=== PATIENT | female | born 1950 | race Caucasian/White ===

== ENCOUNTER → 2016-04-12 | Outpatient (CLI) | payer OTHER ==
[~2016-04-12] MED LIST: ACET-1222; ALBINS PO; ALBU2SYP9 INH; AMOX875T PO; ANT25 PO; ASPCH81X PO; ASPEC81 PO; ATV5 PO; CITA20TA9 PO; CLX20 PO; COEN1CAP28 PO; COEN1CAP7 PO; ESTCR VI; LEVO88TA22 PO; LEVO88TA3 PO; METO25TA3 PO; MULT-506 PO; MULTTAB58 PO; OMEG10007 PO; PRD/1 PO; PRLSR20 PO; PROB1TAB16 PO; RANI150T3 PO; ROSU5TAB PO; TRAZ50TA35 PO; VSC/5 PO; WARF5TAB7 PO; probiotics
[2016-04-12 14:55] VITALS: BP 132/59; PULSE 68; TEMP 36.4; O2SAT 93
--- NOTE | 2016-04-12 15:29 | Radiation Oncology Follow-Up ---
Radiation Oncology Follow-Up Date of Visit Apr 12, 2016. Reason For Visit Annual follow-up Radiation Completion Date APB 08/21/11 Diagnosis (1) MAL KATELYN BREAST UP-OUTER Status: Resolved Onset Date: 05/04/2011 Location: right breast Histology Subtype: lobular Stage: ll (A) Permanent Comment: Abnormal right breast mammogram Status post biopsy revealing lobular carcinoma Status post lumpectomy and axillary sentinel lymph node biopsy [id number] Estrogen receptor positive, progesterone receptor positive, HER-2/barbara negative Status post completion of radiation therapy utilizing accelerated partial breast treatment completed 08/21/2011 Last Edited By: Josette Rangel on Mar 14:28 Interim History She's been doing well over the past year. She denies any changes to her breast. She's noted no masses or tenderness and no change of the axilla. She is up-to-date on mammography. She continues regular follow-up with Dr. Burch. She now sees him twice a year. She had a mammogram 07/08/2015. There is no mammographic evidence of malignancy. One year screening mammogram was recommended. BI-RADS Category 2. She was hospitalized for vertigo in December. She had MRI as well as CAT scan. 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 She has been doing well since. She does have a problem with her vision. She is going to see the bottom hoop driver. She stated that there are plans for her to have carotid Dopplers in the future. Allergies Coded Allergies: Hydrocodone (Verified Allergy, Unknown, other, 12/21/15) hallucinations Levofloxacin (Unverified Allergy, Unknown, RASH, 12/21/15) difficulty with neuropathy Propoxyphene (Verified Allergy, Unknown, UNKNOWN., 12/21/15) Azithromycin (Verified Adverse Reaction, Intermediate, DEAFNESS FOR SEVERAL WEEKS, 12/21/15) Hydromorphone (Verified Adverse Reaction, Intermediate, Hallucinations , 12/21/15) Oxycodone (Verified Adverse Reaction, Mild, other, 12/21/15) hallucinations Uncoded Allergies: [id number] (Allergy, Intermediate, Hallucinations , 08/31/14) Hydromorphone [id number] (Allergy, Intermediate, DEAFNESS FOR SEVERAL WEEKS, 08/31/14) Azithromycin CONTRAST MEDIA (Allergy, Mild, RASH, 01/30/11) [id number] (Allergy, Mild, other, 08/31/14) Oxycodone [id number] (Allergy, Unknown, other, 08/31/14) Hydrocodone [id number] (Allergy, Unknown, UNKNOWN., 08/31/14) Propoxyphene [id number] (Allergy, Unknown, RASH, 08/31/14) Levofloxacin Home Medications Scheduled Albuterol Sulf (Albuterol Sulfate), Unknown Dose PO UD Aspirin Enteric Coated (Ecotrin Or Generic *), 81 MG PO DAILY Citalopram (Celexa *), 20 MG PO DAILY Coenzyme Q10 (Ubidecarenone) (Co Q10), 100 CAP PO BID Fish Oil ([place]-3), 1 CAP PO BID Levothyroxine (Levoxyl), 0.088 MG PO DAILY Metoprolol Succ (Toprol Xl) (Toprol-Xl), 25 MG PO DAILY Multiple Vitamin (Multivitamin), 1 TAB PO DAILY Prednisone (Prednisone), 5 MG PO Q4D Rosuvastatin Calcium (Crestor), 5 MG PO Q2D Trazodone Hcl (Trazodone), 50 MG PO HS Warfarin Sod (Jantoven), 5 MG PO UD [probiotics], 1 TAB DAILY Scheduled PRN Lorazepam (Ativan *), 0.5 MG PO BID PRN for Anxiety/Agitation Meclizine HCl (Meclizine HCl), 12.5 MG PO Q8 PRN for dizziness Miscellaneous Medications Acetaminophen (Acetaminophen Extra Stren) Review of Systems Gastrointestinal: Symptoms: Constipation GI Comments: Constipation is manageable; Oral: Symptoms: No Problems Respiratory: Symptoms: Productive Cough Sputum Character: Clear sputum Urinary: Symptoms: WNL Skin: Symptoms: No Problems Breast: Right Upper Arm Measurement: 33.5 Right Mid Arm Measurement: 24.5 Right Wrist Measurement: 16.3 Left Upper Arm Measurement: 35.0 Left Mid Arm Measurement: 24.8 Left Wrist Measurement: 16.5 Arm Dominence: Right Physical Exam Vital Signs Date Time Temp Pulse Resp B/P Pulse Ox O2 Delivery O2 Flow Rate FiO2 04/12/16 14:55 36.4 68 24 132/59 93 Pain: Patient Pain Scale: 0 - 10 Initial Pain Intensity: 0.0 Fatigue: None General Appearance: no apparent distress Eyes: normal inspection, EOMI ENT: normal ENT inspection, hearing grossly normal Neck: no adenopathy, thyroid normal Respiratory/Chest: lungs clear, no respiratory distress, no accessory muscle use Breast: Breast examination reveals well-healed incisions of the right breast. She does have telangiectasis along the upper outer quadrant incision. There are no masses or tenderness no axillary adenopathy. She has no nipple changes. Using the [place] score cosmesis she has a good outcome. The left breast showed no masses or tenderness and no axillary adenopathy. Cardiovascular: regular rate, rhythm, no gallop, no murmur Extremities: no pedal edema Neurologic/Psychiatric: no motor/sensory deficits, alert, normal mood/affect Skin: warm/dry Lymphatic: no adenopathy Additional Studies BILATERAL DIGITAL SCREENING MAMMOGRAM 3D/2D WITH CAD: 07/08/2015 CLINICAL HISTORY: Asymptomatic Personal History of Breast Cancer. Comparison is made to exams dated: 07/06/2014 mammogram - [facility], 03/23/2008, 06/30/2012 mammogram, 07/02/2013 mammogram, 12/25/2012 mammogram , and 12/19/2011 mammogram - [facility]. FINDINGS: There are scattered areas of fibroglandular density in both breasts. Current study was also evaluated with a Computer Aided Detection (CAD) system. Bilateral CC and MLO 2-D and tomosynthesis views were obtained. No suspicious masses, calcifications, or areas of architectural distortion are noted in either breast. There has been no significant interval change compared to prior exams. There are stable postoperative changes in the right upper outer quadrant from prior lumpectomy. Oval 5 cm mass at the lumpectomy bed is not significantly changed compared to prior exams, with a postoperative seroma seen on prior ultrasounds. Additionally, there are stable postsurgical changes in the left breast at approximately 12:00 including a fat density mass consistent with fat necrosis. Scattered bilateral benign-appearing calcifications are stable compared to prior exams. IMPRESSION: ACR BI-RADS CATEGORY 2: BENIGN There is no mammographic evidence of malignancy. A 1 year screening mammogram is recommended. The patient will receive written notification of the results. Approximately 10% of breast cancers are not detected with mammography. A negative mammographic report should not delay biopsy if a clinically suggestive mass is present. Cathi Wood M.D. /:07/08/2015 15:26:18 Assessment & Plan Plan: She is scheduled for mammography 07/09/2016. Continue regular follow-up with Dr. Burch. She is seeing Dr. Burch every 6 months. A follow-up with our office was not given. She may call if she has any questions or concerns would be happy to see her. Total Time In Follow-Up I spent 20 minutes speaking to the patient performing examination. I spent 10 minutes reviewing information and completing this note. Copy To Hoang Burch M.D.; Alex Rai D.O.
== END | disposition home or self-care (01) ==
LOC: C.ONC 14:33
PROVIDERS: ATTEND Radiology Radiation Oncology
DX: Z08 Encounter for follow-up examination after completed treatment for malignant neoplasm (principal); Z92.3 Personal history of irradiation; Z85.3 Personal history of malignant neoplasm of breast

== ENCOUNTER → 2016-07-09 | Outpatient (CLI) | payer OTHER ==
[~2016-07-09] MED LIST changes: -ESTCR VI; -PRLSR20 PO; -VSC/5 PO
--- NOTE | 2016-07-10 15:28 | MAMMOGRAPHY REPORT ---
BILATERAL DIGITAL SCREENING MAMMOGRAM TOMOSYNTHESIS WITH CAD: 07/09/2016 CLINICAL HISTORY: Asymptomatic. Personal history of breast cancer. TECHNIQUE: Breast tomosynthesis in addition to standard 2D mammography was performed. Current study was also evaluated with a Computer Aided Detection (CAD) system. COMPARISON: Comparison is made to exams dated: 07/08/2015 mammogram, 07/06/2014 mammogram, 07/02/2013 mammogram, 06/30/2012 mammogram, 05/04/2011 localization, and 04/19/2011 mammogram - [facility]. BREAST COMPOSITION: There are scattered areas of fibroglandular density in both breasts. FINDINGS: There is evidence of prior bilateral breast surgery, including expected architectural dist ortion and central oil cyst in the 12:00 to one third of the left breast. There is a stable postsur gical seroma and/or hematoma in the upper outer posterior right breast, with adjacent surgical clips . There are a few benign-appearing micro-calcifications bilaterally. Mild vascular calcification. No new suspicious mass, architectural distortion or cluster of microcalcifications is seen. IMPRESSION: ACR BI-RADS CATEGORY 1: NEGATIVE There is no mammographic evidence of malignancy. A 1 year screening mammogram is recommended. The p atient will receive written notification of the results. Approximately 10% of breast cancers are not detected with mammography. A negative mammographic repor t should not delay biopsy if a clinically suggestive mass is present. Stephany Paredes M.D. ay/:07/09/2016 22:07:24 Attic Fans Mechanic: Sierra Castaneda, [facility] letter sent: Normal 1/2 BI-RADS Code: ACR BI-RADS Category 1: Negative
== END | disposition home or self-care (01) ==
LOC: C.MAMM 14:19
PROVIDERS: ATTEND Surgery
DX: Z12.31 Encounter for screening mammogram for malignant neoplasm of breast (principal); Z85.3 Personal history of malignant neoplasm of breast

== ENCOUNTER → 2016-08-08 | Day surgery (SDC) | payer OTHER ==
[2016-08-02 10:17] VITALS: BMI 31.0
[~2016-08-08] VITALS: Ht 172.7 cm; Wt 92.7 kg
[~2016-08-08] MED LIST changes: -ACET-1222; -ALBINS PO; -ANT25 PO; -ASPEC81 PO; -CLX20 PO; -COEN1CAP28 PO; -LEVO88TA22 PO; +LIDOCAINE HCL 2% 2 ML VIAL (20MG/ML) ONE; -MULTTAB58 PO; -PRD/1 PO; +PROPOFOL IV EMULSION 10 MG/ML 20 ML VIAL IV ONE; -probiotics
[2016-08-08 11:22] VITALS: Ht 172.7 cm; Wt 92.7 kg
--- NOTE | 2016-08-08 11:52 | Endo History and Physical ---
History & Physical Date of Service: August 08, 2016. Chief Complaint: Screening for colon cancer/ dyphagia Referring Physician: Dr. Rai History of Present Illness Dysphagia, CRC screening Past Medical History Atrial Fibrillation, Pulmonary Emboli, Cancer, High Cholesterol, Thyroid Disease , Kidney Disease, Depression Past Surgical History Hx Cardiac Surgery: Yes (AORTIC ANEURYSM REPAIR X 2) Hx Internal Defibrillator: No Hx Pacemaker: No Hx Abdominal Surgery: Yes (APPY) Hx of Implantable Prosthesis: No Hx Post-Op Nausea and Vomiting: No Hx Cancer Surgery: Yes (RT/LEFT PARTIAL MASTECTOMY, BACK EXCISION) Hx Thoracic Surgery: No Hx Orthopedic: No Hx Urinary Tract Surgery: Yes (LAP URETHRAL SUSPENSION) Family History None Social History Smoking Status: Never Smoker Hx Substance Use: No Hx Alcohol Use: No Allergies Coded Allergies: Hydrocodone (Verified Allergy, Unknown, other, 08/02/16) hallucinations Levofloxacin (Verified Allergy, Unknown, RASH, 08/08/16) difficulty with neuropathy Propoxyphene (Verified Allergy, Unknown, UNKNOWN., 08/02/16) Azithromycin (Verified Adverse Reaction, Intermediate, DEAFNESS FOR SEVERAL WEEKS, 08/02/16) Hydromorphone (Verified Adverse Reaction, Intermediate, Hallucinations , ) Oxycodone (Verified Adverse Reaction, Mild, other, 08/02/16) hallucinations Uncoded Allergies: CONTRAST MEDIA (Allergy, Mild, RASH, 01/30/11) Current Medications Reported Home Medications Medications Dose Route/Sig Max Daily Dose Days Date Category Dose Instructions Multivitamin (Multivitamins) Tab 1 Tab PO QAM 08/02/16 Reported Probiotic (Probiotic Product) 1 Tab Tab 2 Tab PO DAILY AT LUNCH 08/02/16 Reported [place]-3 (Fish Oil) 1 Ea Cap 1 Cap PO QAM 08/02/16 Reported Coq10 (Coenzyme Q10 (Ubidecarenone)) 200 Mg Cap 1 Cap PO QAM 08/02/16 Reported Ventolin (Albuterol Sulfate) 2 Mg/5 Ml Syrp 1 Dose INH Q4H PRN 08/02/16 Reported Aspirin Chewable (Aspirin) 81 Mg Chew 81 Mg PO QAM 08/02/16 Reported Toprol Xl (Metoprolol Succinate) 25 Mg Tabcr 25 Mg PO HS 08/02/16 Reported Crestor (Rosuvastatin Calcium) 5 Mg Tab 5 Mg PO Q2D 08/02/16 Reported Levothyroxine Sodium 88 Mcg Tab 1 Tab PO QAM 90 08/02/16 Reported Celexa (Citalopram Hydrobromide) 20 Mg Tab 20 Mg PO HS 08/02/16 Reported Zantac (Ranitidine HCl) 150 Mg Tab 150 Mg PO BID 08/02/16 Reported Trazodone (Trazodone HCl) 50 Mg Tab 50 Mg PO HS 12/21/15 Reported Jantoven (Warfarin Sodium) 5 Mg Tab 5 Mg PO UD 06/30/14 Reported DIRECTED BY COAG CLINIC Ativan * (Lorazepam) 0.5 Mg Tab 0.5 Mg PO BID PRN 01/30/11 Reported Vital Signs Weight (Kilograms): 92.73 Height (Feet): 5 Height (Inches): 8 Date Time Temp Pulse Resp B/P Pulse Ox O2 Delivery O2 Flow Rate FiO2 08/08/16 11:27 36.4 75 20 150/70 97 Room Air Physical Exam General Appearance: no apparent distress Respiratory/Chest: Auscultation: breath sounds normal Cardiovascular: Heart Auscultation: RRR Abdomen: Inspection & Palpation: soft Assessment and Plan Screening, dysphagia - EGD, cscopy
--- NOTE | 2016-08-08 12:41 | GI REPORT ---
Procedure Date: 08/08/2016 11:55 AM Procedure: Upper GI endoscopy Indications: Dysphagia Medicines: See the Anesthesia note for documentation of the administered medications Complications: No immediate complications. Estimated Blood Loss: Estimated blood loss: none. Procedure: Pre-Anesthesia Assessment: - ASA Grade Assessment: III - A patient with severe systemic disease. After obtaining informed consent, the endoscope was passed under direct vision. Throughout the procedure, the patient's blood pressure, pulse, and oxygen saturations were monitored continuously. The scope was introduced through the mouth, and advanced to the second part of duodenum. The upper GI endoscopy was accomplished without difficulty. The patient tolerated the procedure well. Findings: The Z-line was found 38 cm from the incisors. A faint Schatzki ring (acquired) was found at the gastroesophageal junction. A guidewire was placed and the scope was withdrawn. Dilation was performed with a Savary dilator with no resistance at 18 mm. The ring was fractured wtih a forceps. There was a small hiatal hernia. There were stripes of erythema in the antrum. The stomach was otherwise normal. The duodenum was normal. Biopsies were taken with a cold forceps in the entire esophagus, in the entire examined stomach and in the entire duodenum for histology. Impression: - Antral gastritis. - Faint Schatzki ring. Dilated. - Biopsies were taken with a cold forceps for histology in the entire esophagus, in the entire examined stomach and in the entire duodenum. Recommendation: - Await pathology results. Discharge pt home. FOllow up with referring. Marycarmen Mireles M.D. Marycarmen Mireles MD 08/08/2016 12:41:55 PM This report has been signed electronically. Note Initiated On: 08/08/2016 11:55 AM I attest to the content of the Intraoperative Record and orders documented therein, exceptions below
--- NOTE | 2016-08-08 12:43 | GI REPORT ---
Procedure Date: 08/08/2016 11:31 AM Procedure: Colonoscopy Indications: Screening for colorectal malignant neoplasm Medicines: See the Anesthesia note for documentation of the administered medications Complications: No immediate complications. Estimated Blood Loss: Estimated blood loss: none. Procedure: Pre-Anesthesia Assessment: - ASA Grade Assessment: III - A patient with severe systemic disease. After I obtained informed consent, the scope was passed under direct vision. Throughout the procedure, the patient's blood pressure, pulse, and oxygen saturations were monitored continuously. The scope was introduced through the anus and advanced to the terminal ileum. The colonoscopy was performed without difficulty. The patient tolerated the procedure well. The quality of the bowel preparation was good. Findings: The perianal and digital rectal examinations were normal. Multiple small and large-mouthed diverticula were found in the sigmoid colon and in the descending colon. A 3 mm polyp was found in the transverse colon. The polyp was sessile. The polyp was removed with a cold biopsy forceps. Resection and retrieval were complete. A single medium-sized angiodysplastic lesion without bleeding was found in the cecum. Hemorrhoids seen on retroflexion. The exam was otherwise without abnormality. Impression: - Diverticulosis in the sigmoid colon and in the descending colon. - One 3 mm polyp in the transverse colon, removed with a cold biopsy forceps. Resected and retrieved. - A single non-bleeding colonic angiodysplastic lesion. - Hemorrhoids. Recommendation: - Repeat exam in 5 years, pending review of pathology results. - Discharge patient to home. Marycarmen Mireles M.D. Marycarmen Mireles MD 08/08/2016 12:43:55 PM This report has been signed electronically. Note Initiated On: 08/08/2016 11:31 AM I attest to the content of the Intraoperative Record and orders documented therein, exceptions below
--- NOTE | 2016-08-08 12:44 | Discharge Instructions ---
Endoscopy Patient Instructions Date / Procedure(s) Performed August 08, 2016. Colonoscopy, EGD Allergy Information Coded Allergies: Hydrocodone (Verified Allergy, Unknown, other, 08/02/16) hallucinations Levofloxacin (Verified Allergy, Unknown, RASH, 08/08/16) difficulty with neuropathy Propoxyphene (Verified Allergy, Unknown, UNKNOWN., 08/02/16) Azithromycin (Verified Adverse Reaction, Intermediate, DEAFNESS FOR SEVERAL WEEKS, 08/02/16) Hydromorphone (Verified Adverse Reaction, Intermediate, Hallucinations , ) Oxycodone (Verified Adverse Reaction, Mild, other, 08/02/16) hallucinations Uncoded Allergies: CONTRAST MEDIA (Allergy, Mild, RASH, 01/30/11) Discharge Date / Findings August 08, 2016. Ring, diverticulosis, hemorrhoids, diminutive polyp Medication Instructions Stopped Medication(s): Warfarin since 08/04/16 Restart Stopped Medication(s): Resume coumadin today Provider Instructions Activity Restrictions - No exercising or heavy lifting for 24 hours. - Do not drink alcohol the day of the procedure. - Do not drive a car or operate machinery until the day after the procedure. - Do not make any important decisions or sign important papers in 24 hours after the procedure. Following Day: - Return to full activity which may include returning to work/school. Diet Start your diet with liquids and light foods (jello, soup, juice, toast). Then eat your usual diet if not nauseated. Treatment For Common After Affects For mild abdominal pain, bloating, or excessive gas: - Rest - Eat lightly - Lie on right side Follow-Up Information Follow-up with Dr. Rai as scheduled Anesthesia Information What You Should Know You have had a procedure that required some medicine to reduce anxiety and discomfort. This treatment is called moderate sedation. After receiving the treatment, you may be sleepy, but you will be able to breathe on your own. The effects of the treatment may last for several hours. Follow these instructions along with Activity/Diet recommendations noted above: * Do NOT do anything where dizziness or clumsiness would be dangerous. * Rest quietly at home today, then you can be up and about tomorrow. * Have a responsible person stay with you the rest of today. * You may have had an I.V. today. If so, you may take the dressing off later today. Recommendations Call your doctor if: * Trouble breathing * Continuous vomiting for more than 24 hours * Temperature above 101 degrees * Severe abdominal pain or bloating * Pain not relieved by pain medicine ordered * There is increased drainage or redness from any incision * A large amount of rectal bleeding greater than 2-3 tablespoons. (If you had a polyp/s removed or have hemorrhoids, a small amount of blood - from the rectum is to be expected.) * You have any unanswered questions or concerns. IN THE EVENT OF A SERIOUS EMERGENCY, GO TO THE NEAREST EMERGENCY ROOM Your discharge instructions were prepared by provider Marycarmen Rao. Patient Instructions Signature Page Debbie Jackson Patient (or Guardian) Signature/Date: I have read and understand the instructions given to me by my caregivers. Caregiver/RN/Doctor Signature/Date: The above-named patient and/or guardian has received patient instructions on this date. + Original Patient Signature Page (only) stays with chart. Please make copy for patient.
--- NOTE | 2016-08-08 12:52 | Anesthesiology Progress Note ---
Anesthesia Post Op Note Date & Time August 08, 2016 at 12:52 Vital Signs Pain Intensity: 0 Vital Signs Past 12 Hours Date Time Temp Pulse Resp B/P Pulse Ox O2 Delivery O2 Flow Rate FiO2 08/08/16 12:45 36.6 67 20 103/50 97 Nasal Cannula 3 08/08/16 11:27 36.4 75 20 150/70 97 Room Air Notes Mental Status: alert / awake / arousable, participated in evaluation Pt Amnestic to Procedure: Yes Nausea / Vomiting: adequately controlled Pain: adequately controlled Airway Patency, RR, SpO2: stable & adequate BP & HR: stable & adequate Hydration State: stable & adequate Anesthetic Complications: no major complications apparent
[2016-08-08 13:19] VITALS: BP 128/56; PULSE 66; O2SAT 98
== END | disposition home or self-care (01) ==
LOC: C.GI 10:54
PROVIDERS: ATTEND Internal Medicine Gastroenterology
DX: Z12.11 Encounter for screening for malignant neoplasm of colon (principal); R13.10 Dysphagia, unspecified; K22.2 Esophageal obstruction; K44.9 Diaphragmatic hernia without obstruction or gangrene; E78.00 Pure hypercholesterolemia, unspecified; K29.60 Other gastritis without bleeding; D12.3 Benign neoplasm of transverse colon; K64.8 Other hemorrhoids; Z90.13 Acquired absence of bilateral breasts and nipples; Z86.711 Personal history of pulmonary embolism; Z79.82 Long term (current) use of aspirin; Z79.01 Long term (current) use of anticoagulants

== ENCOUNTER → 2017-07-10 | Outpatient (CLI) | payer OTHER ==
[~2017-07-10] MED LIST changes: -AMOX875T PO; -LIDOCAINE HCL 2% 2 ML VIAL (20MG/ML) ONE; -METO25TA3 PO; +METO25TA4 PO; -PROPOFOL IV EMULSION 10 MG/ML 20 ML VIAL IV ONE
--- NOTE | 2017-07-11 14:45 | MAMMOGRAPHY REPORT ---
BILATERAL DIGITAL SCREENING MAMMOGRAM TOMOSYNTHESIS WITH CAD: 07/10/2017 CLINICAL HISTORY: Routine screening. Patient has no complaints. TECHNIQUE: Breast tomosynthesis in addition to standard 2D mammography was performed. Current study was also evaluated with a Computer Aided Detection (CAD) system. COMPARISON: Comparison is made to exams dated: 07/09/2016 mammogram, 07/08/2015 mammogram, 07/06/2014 m ammogram, 07/02/2013 mammogram, 12/25/2012 ultrasound, and 12/25/2012 mammogram - [facility]. BREAST COMPOSITION: There are scattered areas of fibroglandular density in both breasts. FINDINGS: No suspicious masses, calcifications, or areas of architectural distortion are noted in ei ther breast. There has been no significant interval change compared to prior exams. There are stable postsurgical changes in the right upper outer quadrant from prior lumpectomy, including surgical cli ps, architectural distortion, and an oval 4.4 cm mass at the lumpectomy bed consistent with a postsur gical seroma. There are stable postsurgical changes in the left 12:00 breast including stable errol ectural distortion and a 15 mm fat density mass at the surgical bed consistent with fat necrosis. Sc attered benign-appearing calcifications are not significantly changed. IMPRESSION: ACR BI-RADS CATEGORY 2: BENIGN There is no mammographic evidence of malignancy. A 1 year screening mammogram is recommended. The pa tient will receive written notification of the results. Approximately 10% of breast cancers are not detected with mammography. A negative mammographic report should not delay biopsy if a clinically suggestive mass is present. Cathi Wood M.D. /:07/10/2017 15:42:17 Resource Analyst: Senia KNOWLES(Christopher)(M), [facility] letter sent: Normal 1/2 BI-RADS Code: ACR BI-RADS Category 2: Benign
== END | disposition home or self-care (01) ==
LOC: C.MAMM 14:51
PROVIDERS: ATTEND Internal Medicine
DX: Z12.31 Encounter for screening mammogram for malignant neoplasm of breast (principal); Z85.3 Personal history of malignant neoplasm of breast

== ENCOUNTER → 2017-08-06 | Outpatient (CLI) | payer OTHER ==
--- NOTE | 2017-08-06 15:53 | DIAGNOSTIC IMAGING REPORT ---
CHEST 2 VIEWS ROUTINE CLINICAL HISTORY: Sarcoidosis. COMPARISON STUDY: Chest radiograph December 21, 2015. FINDINGS: Lung volumes are normal. There is no pneumothorax or pleural effusion. There is no consolidation or evidence of pulmonary edema. The appearance of the endovascular thoracic aortic stent graft is similar to exam of December 21, 2015. Incidental note is made of a right breast/right chest wall surgical clips. IMPRESSION: No acute cardiopulmonary findings. No change in appearance of the chest. Electronically signed by: Kyle Varner M.D. 08/06/2017 3:52 PM Dictated Date/Time: 08/06/2017 3:50 PM
== END | disposition home or self-care (01) ==
LOC: C.RAD1850 15:11
PROVIDERS: ATTEND Physician Assistant
DX: D86.9 Sarcoidosis, unspecified (principal)

== ENCOUNTER 2024-02-05 15:03 | Inpatient (IN) ==
--- NOTE | 2024-02-05 15:41 | Emergency Department Note ---
Impression & Plan Atrial fibrillation with rapid ventricular response, Chest pain ED Provider Note Provider: Yvon Duggan MD CHIEF COMPLAINT: A-fib, chest pain/back pain, lightheaded HISTORY OF PRESENT ILLNESS: Patient is a 73-year-old female history of CVA, paroxysmal A-fib, VTE, and aortic repair presenting here with reporting since yesterday she has had intermittent episodes where her smart watch is indicating she is in A-fib. Not normally in A-fib. Reports discomfort and pressure in her chest with some pain to the prickly left shoulder blade region. Some lightheadedness but no syncope. No trauma. No nausea vomiting or diarrhea. Denies recent cough or cold symptoms. No new leg swelling issues reported. Has been having issues for some months with chronic fatigue reports she has been seeing her doctor. Patient states compliance with home medications. Finally given persistent symptoms came in for evaluation here today. PAST MEDICAL HISTORY: As noted above MEDICATIONS: Reviewed home medications SOCIAL HISTORY: PHYSICAL EXAM: GENERAL: alert and oriented in no acute distress on stretcher Head: normocephalic and atraumatic EYES: No injection, discharge or icterus. NECK: Trachea midline. ENT: Mucous membranes pink and moist. LUNGS: Airway patent. No retractions. Breath sounds clear without tachypnea HEART: Tachycardic regular rate and rhythm. No chest wall tenderness ABDOMEN: Soft and non-tender, without guarding or rebound. SKIN: Acyanotic, warm, dry, without rashes EXTREMITIES: Without swelling, tenderness or deformity NEUROLOGICAL: No focal deficits moves all extremities. No aphasia. No facial droop or slurred speech. Ambulatory. EK bpm atrial fibrillation with rapid ventricular spots. Bit of respiratory artifact but no clear acute ST segment elevation or depression with nonspecific T wave changes. QTc 449. CONTINUOUS CARDIAC MONITORING: was ordered and showed a heart rate of 90s to 130s bpm in A-fib Patient's laboratory studies and imaging reviewed. Differential includes Premature contractions, electrolyte abnormality, cardiac dysrhythmia, thyroid dysfunction, pulmonary embolism, infection, gastrointestinal, aortic dissection, as well as other pathologies. IMPRESSION/MEDICAL DECISION MAKING: Patient well-appearing in no active distress. In rapid A-fib. States compliance with medications but given additional IV metoprolol here initially. Reports chest pressure and pain to left shoulder blade and do question given her RVR if she is experiencing some demand ischemia. Will try to affect some better rate control. Denies cough or cold symptoms or fever. Will double check INR but is on warfarin. Denies any significant GI complaints. No neurological deficits doubt CVA. No severe tearing pain I doubt this represents a failure of her aortic repair. Chest x-ray completed without findings of pneumonia, pneumothorax, or pulmonary edema/effusion. Blood work here without significant anemia leukocytosis. Normal platelet count. INR therapeutic at 2.0. Magnesium normal 2.0. Normal potassium. No significant acute renal dysfunction. Normal lipase and LFTs. Doubt hepatitis or pancreatitis. Normal troponin surprisingly given her complaint. Patient with improvement of pain but heart rate begins to creep up after initial dose of IV metoprolol after about an hour and a half. Discussed with her staying for further cardiac evaluation given her symptoms and ongoing A-fib with RVR. She was agreeable. Hospitalist team contacted. DIAGNOSIS: A-fib RVR, chest pain DISPOSITION: Hospitalist will evaluate Patient was agreeable with this plan. Critical Care I have personally spent 35 minutes of critical care time in the direct management of this patient. This includes bedside care, interpretation of diagnostic studies, and testing, discussion with consultants, patient, and family members, and other required patient management activities. These 35 minutes is in excess of all separately billable procedures. Past Med/Surg History Problem List (Updated 02/05/24 @ 17:45 by Yvon Duggan M.D.) Chest pain (Acute) Atrial fibrillation with rapid ventricular response (Acute) Sarcoidosis (Acute) Stroke DVT (deep venous thrombosis) Pulmonary emboli Dizziness Medical History Aorta aneurysm Benign tumor of kidney DVT (deep venous thrombosis) Pulmonary emboli Sarcoidosis Stroke Surgical History History of bilateral mastectomy History of bladder surgery 2010 History of heart surgery aorta - 2011 History of heart surgery Family History Other Family history non-contributory Social History Smoking Status: Never smoker Do You Dip or Chew Tobacco: No; Hx Alcohol Use: No Hx Substance Use: No Preferred Language: Ukrainian Communication Ability: Effective marital status: Current Living Situation: Spouse current occupational status: retired How many Children do You have: 5 Feels Safe at Home: Yes Allergies Allergies Allergy/AdvReac Type Severity Reaction Status Date / Time Iodinated Contrast Media Allergy Mild Rash Verified 02/05/24 18:44 hydrocodone Allergy Unknown other Verified 02/05/24 18:44 levofloxacin Allergy Unknown RASH Verified 02/05/24 18:44 propoxyphene Allergy Unknown UNKNOWN. Verified 02/05/24 18:44 azithromycin AdvReac Intermediate Deafness Verified 02/05/24 18:44 for several weeks hydromorphone AdvReac Intermediate Hallucinati Verified 02/05/24 18:44 ons oxycodone AdvReac Mild other Verified 02/05/24 18:44 Home Meds Home Medications Medication Instructions Recorded Confirmed Lactobacillus 1 cap PO DAILY 09/08/19 02/05/24 acidophilus-Bifidobac.animalis 31 billion cell capsule citalopram 20 mg tablet 20 mg PO QAM 09/08/19 02/05/24 coenzyme Q10 100 mg capsule 100 mg PO .TAKE DIRECTED. 09/08/19 02/05/24 metoprolol succinate 25 mg 12.5 mg PO QAM 09/08/19 02/05/24 tablet,extended release 24 hr multivitamin (Daily Multi-Vitamin 1 tab PO DAILY 09/08/19 02/05/24 tablet) rosuvastatin 5 mg tablet 5 mg PO Q OTHER DAY 09/08/19 02/05/24 red yeast rice 600 mg tablet 600 mg PO QAM 09/10/19 02/05/24 warfarin 5 mg tablet (Jantoven) 7.5 mg PO DAILY 04/27/20 02/05/24 aspirin 81 mg tablet,delayed 81 mg PO DAILY 02/05/24 02/05/24 release coQ10 (ubiquinol) 200 mg capsule 200 mg PO DAILY 02/05/24 02/05/24 levothyroxine 100 mcg tablet 100 mcg PO DAILYBB 02/05/24 02/05/24 melatonin 10 mg tablet 10 mg PO HS 02/05/24 02/05/24 omega-3 fatty acids 1,250 mg 1,250 mg PO DAILY 02/05/24 02/05/24 capsule pregabalin 25 mg capsule 25 mg PO AMHS 02/05/24 02/05/24 turmeric root extract 500 mg 500 mg PO QAM 02/05/24 02/05/24 capsule Results & Data (ED) Vital Signs Vital Signs - 24 hr 02/05/24 15:13 02/05/24 15:44 02/05/24 15:45 Temperature 36.6 C Temperature Source Temporal Artery Scan Pulse Rate 122 H 121 H 107 H Pulse Rate [Left Finger] Pulse Rhythm [Left Finger] Pulse Strength [Left Finger] Respiratory Rate 20 Respiratory Effort / Characteristics Non-Labored Respiratory Depth Normal Respiratory Pattern Blood Pressure 148/60 H 113/85 Blood Pressure [Left Arm] Blood Pressure Mean 89 Blood Pressure Mean [Left Arm] Pulse Oximetry 94 Oxygen Delivery Method Room Air Sepsis Recent Fever Within 48 Hours No Sepsis New/Unexplained Change in Mental Status N/A Sepsis Action Taken by Nursing No Action Required 02/05/24 16:00 02/05/24 16:00 02/05/24 17:00 Temperature Temperature Source Pulse Rate 93 H Pulse Rate [Left Finger] 93 H 102 H Pulse Rhythm [Left Finger] Regular Pulse Strength [Left Finger] Normal Respiratory Rate 16 20 Respiratory Effort / Characteristics Non-Labored Spontaneous Respiratory Depth Normal Respiratory Pattern Regular Blood Pressure 134/85 Blood Pressure [Left Arm] 134/85 114/73 Blood Pressure Mean Blood Pressure Mean [Left Arm] 101 86 Pulse Oximetry 94 94 Oxygen Delivery Method Room Air Sepsis Recent Fever Within 48 Hours Sepsis New/Unexplained Change in Mental Status Sepsis Action Taken by Nursing 02/05/24 17:45 02/05/24 18:00 Temperature Temperature Source Pulse Rate 118 H 99 H Pulse Rate [Left Finger] Pulse Rhythm [Left Finger] Pulse Strength [Left Finger] Respiratory Rate Respiratory Effort / Characteristics Respiratory Depth Respiratory Pattern Blood Pressure 114/73 98/69 L Blood Pressure [Left Arm] Blood Pressure Mean Blood Pressure Mean [Left Arm] Pulse Oximetry Oxygen Delivery Method Sepsis Recent Fever Within 48 Hours Sepsis New/Unexplained Change in Mental Status Sepsis Action Taken by Nursing Laboratory Data 02/05/24 15:36 02/05/24 15:36 Lab Results 02/05/24 Range/Units 15:36 WBC 9.04 (4.8-10.8) K/ul RBC 4.79 (4.20-5.40) M/uL Hgb 14.6 (12.0-16.0) g/dl Hct 43.5 (37.0-47.0) % MCV 90.8 (80.0-100.0) fL MCH 30.5 (25.0-34.0) pg MCHC 33.6 (32.0-36.0) g/dL RDW Std Deviation 45.2 (36.4-46.3) fL RDW Coeff of Mita 13.4 (11.5-14.5) % Plt Count 273 (130-400) K/uL MPV 9.9 (9.4-12.4) fL Immature Gran % (Auto) 0.2 % Neut % (Auto) 60.7 % Lymph % (Auto) 26.5 % [place] % (Auto) 8.7 % Eos % (Auto) 3.3 % Baso % (Auto) 0.6 % Neut # (Auto) 5.48 (1.40-6.50) K/uL Lymph # (Auto) 2.40 (1.20-3.40) K/uL [place] # (Auto) 0.79 H (0.11-0.59) K/uL Eos # (Auto) 0.30 (0.00-0.50) K/uL Baso # (Auto) 0.05 (0.00-0.20) K/uL Immature Gran # (Auto) 0.02 (0.01-0.20) K/uL PT 20.4 H (9.0-12.0) Seconds INR 2.0 H (0.9-1.1) APTT 34 H (21-31) Seconds PTT Ratio 1.3 Sodium 141 (136-145) mmol/L Potassium 4.3 (3.5-5.1) mmol/L Chloride 107 (98-107) mmol/L Carbon Dioxide 24 (21-32) mmol/L Anion Gap 10 (3-11) BUN 25 H (6-23) mg/dl Creatinine 1.10 (0.6-1.2) mg/dl Est Cr Clr Drug Dosing 52.4 ml/min eGFR 52.73 BUN/Creatinine Ratio 22.7 H (10-20) Glucose 127 H (70-99(Fasting)) mg/dl Calcium 9.9 (8.6-10.3) mg/dl Magnesium 2.0 (1.7-2.4) mg/dl Total Bilirubin 0.6 (0.2-1.0) mg/dl AST 19 (13-39) U/L ALT 13 (7-52) U/L Alkaline Phosphatase 48 (34-104) U/L Troponin I High Sens 5.8 (0-14) pg/ml Total Protein 6.9 (6.0-8.3) gm/dl Albumin 3.9 (3.4-5.0) gm/dl Globulin 3.0 (2.5-4.0) gm/dl Albumin/Globulin Ratio 1.3 (0.9-2) Lipase 20 (11-82) U/L Administered Medications Discontinued Medications Metoprolol Tartrate (Metoprolol Tartrate 1 Mg/Ml Vial) 5 mg IV NOW STA Stop: 02/05/24 15:35 Last Admin: 02/05/24 15:44 Dose: 5 mg Documented By: KAYLEE Metoprolol Tartrate (Metoprolol Tartrate 1 Mg/Ml Vial) 5 mg IV NOW STA Stop: 02/05/24 17:34 Last Admin: 02/05/24 17:45 Dose: 5 mg Documented By: KAYLEE Imaging Data Radiologist's Impression: Chest X-Ray 02/05/24 15:19 XR chest 1V portable HISTORY: 73 years-old Female Chest pain, nonspecific COMPARISON: 12/20/2022 TECHNIQUE: AP view of the chest FINDINGS: Cardiac silhouette is mildly enlarged. Median sternotomy with thoracic aortic graft. Right axillary surgical clips. No pneumothorax, pleural effusion or airspace consolidation. IMPRESSION: No acute process of the chest. ACT 112: Negative or not required by law. The above report was generated using voice recognition software. It may contain grammatical, syntax or spelling errors. Electronically signed by: Silvestre Edge M.D. 02/05/2024 3:55 PM Discharge Plan Visit Data Chief Complaint: Cardiac Assessment Stated Complaint: AFIB ED Provider: Yvon Duggan Discharge Problem: Atrial fibrillation with rapid ventricular response, Chest pain Patient Disposition: Being Evaluated by Hospitalist Forms Stand Alone Forms: My [facility] Prescriptions Prescriptions: No Action L. acidophilus/Bifid. animalis 31 billion cell capsule 1 cap PO DAILY coenzyme Q10 100 mg capsule 100 mg PO .TAKE DIRECTED. metoprolol succinate 25 mg tablet extended release 24 hr 12.5 mg PO QAM Rx Instructions: 1/2 tablet dose citalopram 20 mg tablet 20 mg PO QAM multivitamin [Daily Multi-Vitamin] Tablet 1 tab PO DAILY rosuvastatin 5 mg tablet 5 mg PO Q OTHER DAY Rx Instructions: 5 mg PO Every other day; red yeast rice 600 mg tablet 600 mg PO QAM warfarin [Jantoven] 5 mg tablet 7.5 mg PO DAILY levothyroxine 100 mcg tablet 100 mcg PO DAILYBB pregabalin 25 mg capsule 25 mg PO AMHS turmeric root extract 500 mg Capsule 500 mg PO QAM aspirin [Aspir-Low] 81 mg Tablet,Delayed Release (Dr/Ec) 81 mg PO DAILY omega-3 fatty acids 1,250 mg Capsule 1,250 mg PO DAILY coQ10 (ubiquinol) 200 mg Capsule 200 mg PO DAILY melatonin 10 mg Tablet 10 mg PO HS Referrals Referrals: Alex Crisostomo MD [Primary Care Provider] -
[2024-02-05] MEDS: METOPROLOL TARTRATE 1 MG/ML VIAL IV STA ×2 (15:44→17:45)
--- NOTE | 2024-02-05 15:56 | XRay Report ---
XR chest 1V portable HISTORY: 73 years-old Female Chest pain, nonspecific COMPARISON: 12/20/2022 TECHNIQUE: AP view of the chest FINDINGS: Cardiac silhouette is mildly enlarged. Median sternotomy with thoracic aortic graft. Right axillary s urgical clips. No pneumothorax, pleural effusion or airspace consolidation. IMPRESSION: No acute process of the chest. ACT 112: Negative or not required by law. The above report was generated using voice recognition software. It may contain grammatical, syntax o r spelling errors. Electronically signed by: Silvestre Edge M.D. 02/05/2024 3:55 PM
[2024-02-05 16:04] LABS: Basophils # (auto) 0.05 K/uL (0.00-0.20); Basophils % (auto) 0.6 %; Eosinophils % (auto) 3.3 %; Hematocrit (blood only) 43.5 % (37.0-47.0); Hemoglobin 14.6 g/dl (12.0-16.0); Immature Granulocytes # (auto) 0.02 K/uL (0.01-0.20); Immature Granulocytes % (auto) 0.2 %; Lymphocytes % (auto) 26.5 %; Mean Corpuscular Hemoglobin 30.5 pg (25.0-34.0); Mean Corpuscular Hgb Conc 33.6 g/dL (32.0-36.0); Mean Corpuscular Volume 90.8 fL (80.0-100.0); Mean Platelet Volume 9.9 fL (9.4-12.4); Monocytes # (auto) 0.79 K/uL (0.11-0.59); Monocytes % (auto) 8.7 %; Neutrophils # (auto) 5.48 K/uL (1.40-6.50); Neutrophils % (auto) 60.7 %; Platelet Count 273 K/uL (130-400); RDW Coefficient of Variation 13.4 % (11.5-14.5); RDW Standard Deviation 45.2 fL (36.4-46.3); Red Blood Count 4.79 M/uL (4.20-5.40); White Blood Count 9.04 K/ul (4.8-10.8)
[2024-02-05 16:49] LABS: Partial Thromboplastin Ratio 1.3; Partial Thromboplastin Time 34 Seconds (21-31); Prothrombin Time 20.4 Seconds (9.0-12.0)
[2024-02-05 18:00] LABS: Albumin Level 3.9 gm/dl (3.4-5.0); Bilirubin,Total 0.6 mg/dl (0.2-1.0); Calcium 9.9 mg/dl (8.6-10.3); Potassium 4.3 mmol/L (3.5-5.1)
[2024-02-05 18:07] LABS: Albumin Globulin Ratio 1.3 (0.9-2); BUN Creatinine Ratio 22.7 (10-20); Creatinine Clr Calc Pharmacy 52.4 ml/min; Total Protein 6.9 gm/dl (6.0-8.3); Troponin I High Sensitivity 5.8 pg/ml (0-14)
--- NOTE | 2024-02-05 19:02 | History & Physical Report ---
Date of Service February 05, 2024 Assessment & Plan (1) Atrial fibrillation with rapid ventricular response: Plan: History of paroxysmal atrial fibrillation and presented with rapid irregular heart rate which was seen in Apple Watch without any significant symptoms She received 2 doses of Lopressor 5 mg each in the emergency room with some improvement of the heart rate Has been on 12.5 mg metoprolol succinate daily. Will increase her metoprolol succinate to 12.5 mg twice daily Cardiology consult and monitoring telemetry unit (2) Sarcoidosis: Plan: History of sarcoidosis No acute symptoms to suggest flare up of sarcoidosis (3) DVT (deep venous thrombosis): Plan: History of DVT and pulmonary embolism on Coumadin INR is therapeutic (4) Pulmonary emboli: (5) Hypothyroidism: Plan: Will continue with thyroid medications Will check TSH DVT prophylaxis On Coumadin and INR is therapeutic CODE STATUS Full History of Present Illness Chief Complaint: Increased and irregular heart rhythm since low how are you yesterday Primary Care Provider: Alex Crisostomo MD She is a 73-year-old female with significant past medical history of she is a 73-year-old female with significant past medical history of paroxysmal atrial fibrillation,DVT with pulmonary emboli DVT with pulmonary emboli,, sarcoidosis, history of stroke, hypothyroidism and hyperlipidemia and also history of thoracic aortic aneurysm repair and apparently noted to have irregular and high heart rate in her Watch since yesterday. She contacted her doctor's office and was advised to come to the emergency room. Denies any palpitation, chest pain or discomfort and no dizziness. She has been taking her metoprolol succinate 12.5 mg daily and also has been taking her other medications regularly. She denies any fever and or chills and does not have any problem with urine or bowel habit. She received 2 doses of intravenous metoprolol 5 mg x 2 with some improvement of her heart rate was admitted to telemetry unit for continuation of care. Allergies Allergy/AdvReac Type Severity Reaction Status Date / Time Iodinated Contrast Media Allergy Mild Rash Verified 02/05/24 18:44 hydrocodone Allergy Unknown other Verified 02/05/24 18:44 levofloxacin Allergy Unknown RASH Verified 02/05/24 18:44 propoxyphene Allergy Unknown UNKNOWN. Verified 02/05/24 18:44 azithromycin AdvReac Intermediate Deafness Verified 02/05/24 18:44 for several weeks hydromorphone AdvReac Intermediate Hallucinati Verified 02/05/24 18:44 ons oxycodone AdvReac Mild other Verified 02/05/24 18:44 Home Medications Medication Instructions Recorded Confirmed Type Lactobacillus 1 cap PO DAILY 09/08/19 02/05/24 History acidophilus-Bifidobac.animalis 31 billion cell capsule citalopram 20 mg tablet 20 mg PO QAM 09/08/19 02/05/24 History coenzyme Q10 100 mg capsule 100 mg PO .TAKE DIRECTED. 09/08/19 02/05/24 History metoprolol succinate 25 mg 12.5 mg PO QAM 09/08/19 02/05/24 History tablet,extended release 24 hr multivitamin (Daily Multi-Vitamin 1 tab PO DAILY 09/08/19 02/05/24 History tablet) rosuvastatin 5 mg tablet 5 mg PO Q OTHER DAY 09/08/19 02/05/24 History red yeast rice 600 mg tablet 600 mg PO QAM 09/10/19 02/05/24 History warfarin 5 mg tablet (Jantoven) 7.5 mg PO DAILY 04/27/20 02/05/24 History aspirin 81 mg tablet,delayed 81 mg PO DAILY 02/05/24 02/05/24 History release coQ10 (ubiquinol) 200 mg capsule 200 mg PO DAILY 02/05/24 02/05/24 History levothyroxine 100 mcg tablet 100 mcg PO DAILYBB 02/05/24 02/05/24 History melatonin 10 mg tablet 10 mg PO HS 02/05/24 02/05/24 History omega-3 fatty acids 1,250 mg 1,250 mg PO DAILY 02/05/24 02/05/24 History capsule pregabalin 25 mg capsule 25 mg PO AMHS 02/05/24 02/05/24 History turmeric root extract 500 mg 500 mg PO QAM 02/05/24 02/05/24 History capsule Past Med/Surg History Problem List (Updated 02/05/24 @ 19:10 by Nisha Lion MD) Hypothyroidism Chest pain (Acute) Atrial fibrillation with rapid ventricular response (Acute) Sarcoidosis (Acute) Stroke DVT (deep venous thrombosis) Pulmonary emboli Dizziness Medical History Aorta aneurysm Benign tumor of kidney DVT (deep venous thrombosis) Pulmonary emboli Sarcoidosis Stroke Surgical History History of bilateral mastectomy History of bladder surgery 2010 History of heart surgery aorta - 2011 History of heart surgery Family History Other Family history non-contributory Social History Smoking Status: Never smoker Do You Dip or Chew Tobacco: No; Hx Alcohol Use: No Hx Substance Use: No Preferred Language: [place] Communication Ability: Effective marital status: Current Living Situation: Spouse current occupational status: retired How many Children do You have: 5 Feels Safe at Home: Yes Review of Systems Review of Systems: All systems reviewed and are unremarkable except as noted below Physical Exam Physical Exam: Lying in bed without any apparent distress Constitutional: average body habitus; not ill appearing Eyes: PERRL, conjunctivae normal, anicteric sclerae ENMT: external ear and nose normal, oropharynx normal Neck: trachea midline, no thyromegaly Respiratory: no respiratory distress Auscultation: lungs clear to auscultation bilaterally Cardiovascular: Rate/Rhythm: regular rate, + tachycardic and + irregularly irregular Heart Sounds: normal S1 and normal S2; no murmur Extremities: + edema (Trace edema bilaterally) Gastrointestinal (Abdomen): Inspection/Auscultation: normal bowel sounds; abdomen not distended Percussion/Palpation: abdomen soft; abdomen nontender Musculoskeletal: No acute arthritis involving any of the joint Neurologic: normal touch/pain/proprioception and moves all extremities; no focal motor deficits Psychiatric: A+Ox3, euthymic affect Lymphatic: no cervical or axillary lymphadenopathy Results & Data Results & Data Vital Signs (Past 12 Hours) Vital Signs Temp Pulse Pulse Resp BP BP Pulse Ox 02/05/24 18:00 99 H 98/69 L 02/05/24 17:45 118 H 114/73 02/05/24 17:00 102 H 20 114/73 94 02/05/24 16:00 93 H 134/85 02/05/24 16:00 93 H 16 134/85 94 02/05/24 15:45 107 H 02/05/24 15:44 121 H 113/85 02/05/24 15:13 36.6 C 122 H 20 148/60 H 94 O2 Del Method 02/05/24 18:00 02/05/24 17:45 02/05/24 17:00 Room Air 02/05/24 16:00 02/05/24 16:00 02/05/24 15:45 02/05/24 15:44 02/05/24 15:13 Room Air Laboratory Results Short CBC 02/05/24 Range/Units 15:36 WBC 9.04 (4.8-10.8) K/ul Hgb 14.6 (12.0-16.0) g/dl Hct 43.5 (37.0-47.0) % Plt Count 273 (130-400) K/uL BMP 02/05/24 15:36 Sodium 141 Potassium 4.3 Chloride 107 Carbon Dioxide 24 BUN 25 H Creatinine 1.10 Glucose 127 H Calcium 9.9 Liver Function 02/05/24 Range/Units 15:36 Total Bilirubin 0.6 (0.2-1.0) mg/dl AST 19 (13-39) U/L ALT 13 (7-52) U/L Alkaline Phosphatase 48 (34-104) U/L Albumin 3.9 (3.4-5.0) gm/dl Code Status & VTE Plan VTE Prophylaxis Plan VTE Prophylaxis will be ordered: Yes
[2024-02-05] MEDS ORDERED: MELATONIN 3 MG TAB PO PRN (20:31)
--- NOTE | 2024-02-05 21:54 | Electrocardiogram Report ---
Test Reason : Blood Pressure : */* mmHG Vent. Rate : 137 BPM Atrial Rate : * BPM P-R Int : * ms QRS Dur : 66 ms QT Int : 298 ms P-R-T Axes : * 4 101 degrees QTcB Int : 449 ms Atrial fibrillation with rapid ventricular response Low voltage QRS Cannot rule out Anterior infarct (cited on or before 20-Dec-2022) Abnormal ECG When compared with ECG of 20-Dec-2022 09:36, Atrial fibrillation has replaced Sinus rhythm Vent. rate has increased by 74 bpm Criteria for Inferior infarct are no longer Present Nonspecific T wave abnormality no longer evident in Anterior leads Confirmed by Telly Plasencia ([id number]) on 02/05/2024 9:54:24 PM Referred By: Confirmed By: Telly Plasencia
[2024-02-05] MEDS ORDERED: NON-FORMULARY MEDICATION (Coenzyme Q10 100 mg capsule) PO SCH (22:18)
[2024-02-05] MEDS: METOPROLOL SUCC 25MG EXT REL TAB PO SCH (23:22)
[2024-02-05] MEDS: MELATONIN 3 MG TAB PO SCH (23:22)
[2024-02-05] MEDS: PREGABALIN 25 MG CAP PO SCH (23:23)
[2024-02-05] MEDS ORDERED: WARFARIN SOD 5 MG TAB PO STA (23:34)
[2024-02-06] MEDS: diphenhydrAMINE Capsule 25 MG CAP PO ONE (00:03)
[2024-02-06] MEDS: WARFARIN SOD 3 MG TAB PO STA (00:31)
[2024-02-06] MEDS: WARFARIN SOD 4 MG TAB PO STA (00:31)
[2024-02-06] MEDS: LEVOTHYROXINE SODIUM 100 MCG TABLET PO SCH (06:13)
[2024-02-06 06:48] LABS: Basophils # (auto) 0.05 K/uL (0.00-0.20); Basophils % (auto) 0.7 %; Eosinophils # (auto) 0.32 K/uL (0.00-0.50); Eosinophils % (auto) 4.5 %; Hematocrit (blood only) 41.6 % (37.0-47.0); Hemoglobin 14.1 g/dl (12.0-16.0); Immature Granulocytes # (auto) 0.01 K/uL (0.01-0.20); Immature Granulocytes % (auto) 0.1 %; Lymphocytes # (auto) 2.51 K/uL (1.20-3.40); Lymphocytes % (auto) 34.9 %; Mean Corpuscular Hemoglobin 30.4 pg (25.0-34.0); Mean Corpuscular Hgb Conc 33.9 g/dL (32.0-36.0); Mean Corpuscular Volume 89.7 fL (80.0-100.0); Mean Platelet Volume 10.1 fL (9.4-12.4); Monocytes # (auto) 0.83 K/uL (0.11-0.59); Monocytes % (auto) 11.5 %; Neutrophils # (auto) 3.47 K/uL (1.40-6.50); Neutrophils % (auto) 48.3 %; Platelet Count 219 K/uL (130-400); RDW Coefficient of Variation 13.3 % (11.5-14.5); RDW Standard Deviation 43.6 fL (36.4-46.3); Red Blood Count 4.64 M/uL (4.20-5.40); White Blood Count 7.19 K/ul (4.8-10.8)
[2024-02-06 07:10] LABS: BUN Creatinine Ratio 19.8 (10-20); Calcium 9.9 mg/dl (8.6-10.3); Creatinine Clr Calc Pharmacy 57.1 ml/min; Magnesium 2.1 mg/dl (1.7-2.4); Potassium 4.5 mmol/L (3.5-5.1)
[2024-02-06 07:12] LABS: INR 1.8 (0.9-1.1); Prothrombin Time 18.3 Seconds (9.0-12.0)
[2024-02-06 07:24] LABS: Thyroid Stimulating Hormone 1.805 uIu/ml (0.300-4.500)
[2024-02-06] MEDS: CITALOPRAM 20 MG TAB PO SCH (07:53)
[2024-02-06] MEDS: ASPIRIN 81 MG ECTAB PO SCH (07:54)
[2024-02-06] MEDS: ADVANCED PROBIOTIC 625 MG CAPSULE PO SCH (07:55)
[2024-02-06] MEDS: ROSUVASTATIN CALCIUM 5 MG TAB PO SCH (07:55)
[2024-02-06] MEDS: OMEGA-3 (PURIFIED FISH OIL) 1 GM CAP PO SCH (07:55)
[2024-02-06] MEDS: MULTIVITAMIN TAB PO SCH (07:56)
[2024-02-06] MEDS ORDERED: NON-FORMULARY MEDICATION (Coq10 (Ubiquinol) 200 mg Capsule) PO SCH (09:00)
[2024-02-06] MEDS ORDERED: NON-FORMULARY MEDICATION (Turmeric Root Extract 500 mg Capsule) PO SCH (09:00)
--- NOTE | 2024-02-06 09:00 | Cardiology Consultation ---
Date of Consultation February 06, 2024 Assessment & Plan (1) Atrial fibrillation with rapid ventricular response: (2) Nonobstructive atherosclerosis of coronary artery: (3) Sarcoidosis: (4) Thoracic aortic aneurysm: (5) HTN, goal below 130/80: (6) PAF (paroxysmal atrial fibrillation): (7) History of CVA (cerebrovascular accident): (8) Personal history of DVT (deep vein thrombosis): (9) Personal history of pulmonary embolism: (10) MTHFR mutation: Plan 73 year old female admitted with atrial fibrillation with a rapid ventricular response observed via her smart watch starting on Saturday, February 04, 2024. Patient with a history of paroxysmal atrial fibrillation, chronically prescribed Coumadin anticoagulation with history of prior cardioembolic left MCA distribution CVA, homozygous MTHFR mutation, past DVT and PE. [id number] 6 points. Patient seemingly asymptomatic Recommendation: * Refer for resting echocardiography * Increase metoprolol succinate for rate control * Continue chronic anticoagulation therapy * Outpatient cardiology follow-up Supervising Physician Co-Signing Physician Notes Attending attestation: Case reviewed with the advanced practitioner. I have personally performed a history and physical examination on the patient. I have reviewed the advanced practitioner's documentation on the date of service referenced in note, and I agree with, and take responsibility for the plan of care. Subjective: No acute distress at present. As noted, she had been alerted by her smart watch with regards to elevated heart rate episodes, and she knew that there was something "off ". Denies any definite worsening shortness of breath. Describes general easy fatigability that is chronic and has chronic insomnia. Exam: Cardiovascular: Irregular rhythm, no murmurs, no edema Neurologic: No focal neurologic deficits, describes chronic mild expressive aphasia, neuropathy Data: Telemetry reveals atrial fibrillation at 109 bpm at present Impression/ Plan: Atrial fibrillation. First recognized 2 days ago. She is chronically anticoagulated with Coumadin with history of suspected cardioembolic stroke in the setting of paroxysmal atrial fibrillation in 2008 and she also was homozygous for the MTHFR mutation. Her Coumadin is managed by the [facility] anticoagulation clinic. Per review of most recent anticoagulation clinic visit on 01/09/2024 patient takes 7.5 mg of Coumadin every Saturday and and Saturday 5 mg the remaining days of the week so yesterday since it was a Saturday she would have had 5 mg. Continue with plan to administer 7.5 mg of Coumadin tonight. With history of cardioembolic stroke and subtherapeutic INR of 1.8, recommend on heparin bridge, no loading bolus. Increase metoprolol to succinate dose from 12.5 mg daily to 25 mg twice daily. Discussed options of ongoing rate control and consideration of direct-current cardioversion. If cardioversion was to be performed, given subtherapeutic INR transesophageal echocardiogram indicated for restratification. For now we will start heparin and proceed from there. Echocardiogram ordered and will be reviewed after completed. Perry Macedo DO History of Present Illness Reason for Consultation: Atrial fibrillation with a rapid ventricular response Requesting Physician: [facility], Dr. Lion Attending Physician: Dr. Delbert Lopez MD History of Present Illness Debbie Jackson is a 73-year-old female who was alerted via her smart watch of possible atrial fibrillation on Sunday, February 04, 2024. Patient contacted her doctor's office and was advised to report to the ER for further evaluation and treatment. Without the alert on her smart watch she would not have known she was in atrial fibrillation however she wonders if this may be part of the reason why she is chronically tired. She notes not sleeping well at nighttime despite Tylenol PM and melatonin. She describes an occasional dizziness occurring without rhyme or reason. She notes chronic sharp chest pain that will last for a second or two, also occurring without rhyme or reason. She has chronic back pain secondary to spinal stenosis following a bad fall, chronically following with a chiropractor. No recent colds or illnesses. No activity related chest pain. No overt palpitations. Stable exertional dyspnea. No resting dyspnea, cough, orthopnea, PND, or peripheral edema. No near- syncope or syncope. No fevers or chills. Patient chronically prescribed Coumadin anticoagulation, without reported melena, hematochezia, or hematuria. EKG on presentation revealed atrial fibrillation with a rapid ventricular response, ventricular rate 137 bpm. Low voltage QRS noted. Possible old anterior infarct observed. QTc 449 ms. High sensitivity troponin negative. INR was therapeutic on presentation at 2.1, mildly subtherapeutic today at 1.8. White blood cell count, H&H, and platelet count were normal. Sodium, potassium, magnesium, and TSH were all within normal limits. TSH 1.805. Chest x-ray showed no acute process. Telemetry personally reviewed, revealing atrial fibrillation with a rapid ventricular response throughout hospitalization thus far. Problem List: Ascending aortic aneurysm, large pseudoaneurysm of distal aortic arch s/p right subclavian side graft and replacement of the ascending aorta and arch with elephant trunk procedure beyond the left subclavian artery 12/2010. Completion of the elephant trunk procedure with a sequential endovascular stent beginning at the isthmus and extending to the distal descending aorta 02/2014. Follows with [facility] Hypertension Dyslipidemia Paroxysmal atrial fibrillation Mild non-obstructive CAD Prior CVA, 2008, with MRI/MRA revealing left MCA distribution felt to be cardioembolic secondary to paroxysmal atrial fibrillation. DVT and PE on chronic Coumadin therapy. Recurrent breast cancer s/p partial mastectomy and radiation therapy Sarcoidosis, pulmonary MTHFR mutation, homozygous GERD Hiatal hernia Hypothyroidism Lumbar spinal stenosis. Appendectomy at 6 years of age. T/A as a child Urethral suspension, cystocele and rectocele repair, paravaginal defect repair Family History: Positive for CAD in both parents. Social History: Nonsmoker. No alcohol. [employer]. 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 Allergies Allergy/AdvReac Type Severity Reaction Status Date / Time Iodinated Contrast Media Allergy Mild Rash Verified 02/05/24 18:44 hydrocodone Allergy Unknown other Verified 02/05/24 18:44 levofloxacin Allergy Unknown RASH Verified 02/05/24 18:44 propoxyphene Allergy Unknown UNKNOWN. Verified 02/05/24 18:44 azithromycin AdvReac Intermediate Deafness Verified 02/05/24 18:44 for several weeks hydromorphone AdvReac Intermediate Hallucinati Verified 02/05/24 18:44 ons oxycodone AdvReac Mild other Verified 02/05/24 18:44 Home Medications Medication Instructions Recorded Confirmed Type Lactobacillus 1 cap PO DAILY 09/08/19 02/05/24 History acidophilus-Bifidobac.animalis 31 billion cell capsule citalopram 20 mg tablet 20 mg PO QAM 09/08/19 02/05/24 History coenzyme Q10 100 mg capsule 100 mg PO .TAKE DIRECTED. 09/08/19 02/05/24 History metoprolol succinate 25 mg 12.5 mg PO QAM 09/08/19 02/05/24 History tablet,extended release 24 hr multivitamin (Daily Multi-Vitamin 1 tab PO DAILY 09/08/19 02/05/24 History tablet) rosuvastatin 5 mg tablet 5 mg PO Q OTHER DAY 09/08/19 02/05/24 History red yeast rice 600 mg tablet 600 mg PO QAM 09/10/19 02/05/24 History warfarin 5 mg tablet (Jantoven) 7.5 mg PO DAILY 04/27/20 02/05/24 History aspirin 81 mg tablet,delayed 81 mg PO DAILY 02/05/24 02/05/24 History release coQ10 (ubiquinol) 200 mg capsule 200 mg PO DAILY 02/05/24 02/05/24 History levothyroxine 100 mcg tablet 100 mcg PO DAILYBB 02/05/24 02/05/24 History melatonin 10 mg tablet 10 mg PO HS 02/05/24 02/05/24 History omega-3 fatty acids 1,250 mg 1,250 mg PO DAILY 02/05/24 02/05/24 History capsule pregabalin 25 mg capsule 25 mg PO AMHS 02/05/24 02/05/24 History turmeric root extract 500 mg 500 mg PO QAM 02/05/24 02/05/24 History capsule Patient History Medical History Benign tumor of kidney Aorta aneurysm Surgical History History of heart surgery History of bilateral mastectomy History of bladder surgery 2010 History of heart surgery aorta - 2010 Family History Other Family history non-contributory Social History Smoking Status: Never smoker Second Hand Exposure: No; Do You Dip or Chew Tobacco: No; Tobacco Cessation Education Requested by Patient: No Hx Alcohol Use: No Hx Substance Use: No Preferred Language: Luxembourgish Communication Ability: Effective Perioperative Tech Required: No Beliefs That Will Affect Care: None marital status: Current Living Situation: Spouse current occupational status: retired How many Children do You have: 5 Other Information That Helps Us Care for You: No Feels Safe at Home: Yes Safety Concerns: Feels Safe At This Time Assistive Devices: None Review of Systems Review of Systems: Complete Review of Systems is as stated above, negative, or noncontributory. Physical Exam Physical Exam: General: A&Ox3. NAD. HENT: Normocephalic. Atraumatic. Eyes: PER. Conjunctiva pink, sclera clear. Neck: No carotid bruits. No JVD. No HJR. Heart: Distant heart sounds. Irregularly irregular, 120 bpm. No murmur appreciated. No rub. Lungs: Clear to auscultation. Abdomen: +BS. Soft. Nontender. No masses or organomegaly. Extremities: No clubbing, cyanosis, or edema. Limited neurological examination is without focal deficits. Pulses: Posterior tibial=2/4. Results & Data Vital Signs (Past 12 Hours) Vital Signs Temp Pulse Pulse Resp BP BP BP 02/06/24 07:10 36.5 C 134 H 19 129/76 02/06/24 02:52 36.8 C 117 H 19 119/75 02/05/24 22:15 36.7 C 100 H 18 157/76 H 02/05/24 22:08 93 H 02/05/24 22:00 02/05/24 21:17 94 H 16 133/91 02/05/24 21:01 133/91 02/05/24 21:00 91 H 26 H Pulse Ox O2 Del Method 02/06/24 07:10 93 Room Air 02/06/24 02:52 92 Room Air 02/05/24 22:15 98 Room Air 02/05/24 22:08 02/05/24 22:00 Room Air 02/05/24 21:17 96 Room Air 02/05/24 21:01 02/05/24 21:00 93 Laboratory Results Cardiac Enzymes 02/05/24 Range/Units 15:36 AST 19 (13-39) U/L Troponin I High Sens 5.8 (0-14) pg/ml Coagulation 02/05/24 02/06/24 Range/Units 15:36 05:44 PT 20.4 H 18.3 H (9.0-12.0) Seconds APTT 34 H (21-31) Seconds CBC 02/05/24 02/06/24 Range/Units 15:36 05:44 WBC 9.04 7.19 (4.8-10.8) K/ul RBC 4.79 4.64 (4.20-5.40) M/uL Hgb 14.6 14.1 (12.0-16.0) g/dl Hct 43.5 41.6 (37.0-47.0) % Plt Count 273 219 (130-400) K/uL Neut # (Auto) 5.48 3.47 (1.40-6.50) K/uL Lymph # (Auto) 2.40 2.51 (1.20-3.40) K/uL [place] # (Auto) 0.79 H 0.83 H (0.11-0.59) K/uL Eos # (Auto) 0.30 0.32 (0.00-0.50) K/uL Baso # (Auto) 0.05 0.05 (0.00-0.20) K/uL Comprehensive Metabolic Panel 02/05/24 02/06/24 Range/Units 15:36 05:44 Sodium 141 141 (136-145) mmol/L Potassium 4.3 4.5 (3.5-5.1) mmol/L Chloride 107 105 (98-107) mmol/L Carbon Dioxide 24 31 (21-32) mmol/L BUN 25 H 20 (6-23) mg/dl Creatinine 1.10 1.01 (0.6-1.2) mg/dl Glucose 127 H 98 (70-99(Fasting)) mg/dl Calcium 9.9 9.9 (8.6-10.3) mg/dl AST 19 (13-39) U/L ALT 13 (7-52) U/L Alkaline Phosphatase 48 (34-104) U/L Total Protein 6.9 (6.0-8.3) gm/dl Albumin 3.9 (3.4-5.0) gm/dl Intake and Output 02/05/24 02/06/24 02/06/24 22:59 06:59 14:59 Intake Total 200 / 200 Balance 200 / 200 Intake: Oral 200 / 200 Other: # Unmeasured Voids 1 Weight 92.6 kg 92.6 kg Weight Measurement Method Standing Scale Built in [facility]
[2024-02-06] MEDS: METOPROLOL SUCC 25MG EXT REL TAB PO ONE (10:07)
[2024-02-06] MEDS: HEPARIN SODIUM/DEXTROSE 25,000 UNITS/500 ML BAG IV SCH (12:13)
[2024-02-06] MEDS: Heparin IV Adult Wt-Based Standard *NO* INITIAL Bolus Protocol IV STA (12:16)
[2024-02-06] MEDS: WARFARIN SOD 7.5 MG TAB PO SCH (15:10)
[2024-02-06] MEDS ORDERED: STAT IV Infusion **Titration per Protocol STA (15:25)
--- NOTE | 2024-02-06 15:28 | Communication Note ---
Date of Service: February 06, 2024 Patient seen in cardiology reassessment. Continues to be in atrial fibrillation, ventricular rate 100 110 bpm. Comfortable at present. Blood pressure stable. Heparin infusing without complication. Recommendations: Continue metoprolol Add diltiazem infusion, 5 mg/h N.p.o. after midnight to allow patient for EDIE guided cardioversion tomorrow. Patient's first impression is that she would like to avoid procedure in favor of medication therapy but is going to think about things. at the bedside. Questions answered to his satisfaction.
[2024-02-06] MEDS: dilTIAZem HCL 125 MG in DEXTROSE 5% 100 ML IV SCH (16:03)
[2024-02-06 19:25] LABS: ANTI-Xa, UFH(UnfractionatedHep 0.47 IU/ml (0.3-0.7)
[2024-02-06] MEDS: diphenhydrAMINE Capsule 25 MG CAP PO PRN (20:12)
[2024-02-06] MEDS: ACETAMINOPHEN 325 MG TAB PO PRN (20:12)
[2024-02-06] MEDS: METOPROLOL SUCC 25MG EXT REL TAB PO SCH (20:13)
--- OUTSIDE RECORDS SUMMARY | 2024-02-06 21:02 | External Medical Summary | Summary of Care ---
Author Name Unknown Organization [facility] Address [address] [place] [address] Phone [phone] Care Team Providers Care Engineering Consultant Name Role Phone Alex Crisostomo MD Primary Care Provider + Reason for Visit * Reason Onset Date Comments Test Results 01/21/2024 Encounter Details Date Type Department Care Team (Late st Contact Info) Description 01/21/2024 Telephone General Internal Medicine [facility] [address] [place] [address] Alex Crisostomo MD [address] [place] [address] Test Results Allergies Active Allergy Reactions Criticality Noted Date Comments Propoxyphene N-Acetaminophen Other (Please comment) 06/01/2008 Fretfull sleep Hydromorphone Hcl Psych complications 4 hallucinations Iodinated Contrast Media Edema airway High 02/13/2011 Levofloxacin 02/21/2016 Oxycodone-Acetaminophen 01/30/2011 Hydrocodone-Acetaminoph en 01/30/2011 Azithromycin Dihydrate 12/20/2008 documented as of this encounter (statuses as of 01/29/2024) Medications MULTIPLE VITAMIN PO TABS Active PROBIOTIC PO CAPS one cap daily 1 Active ACETAMINOPHEN 500 MG PO TABS as needed. 100 Tab 0 4 Active OMEGA 3 1000 MG PO CAPS once daily (1200mg) 4 Active COQ-10 200 MG PO CAPS daily Active ASPIR-LOW 81 MG PO TBEC one pill each day 5 Active Red Yeast Rice 600 MG TABS Tablet Take 1 Tablet by mouth in the morning. 7 Active Turmeric 500 MG Capsule Take 1 Capsule by mouth in the morning. 7 Active Rosuvastatin Calcium 5 MG Oral Tablet (Crestor) TAKE ONE TABLET BY MOUTH EVERY OTHER DAY 45 Tablet 3 4 Active Warfarin Sodium 5 MG Oral Tablet (Jantoven)Indicati ons:long term care social worker current use of anticoagulant therapy TAKE ONE AND A HALF TABLETS BY MOUTH EVERY DAY 135 Tablet 3 4 Active Naproxen Sodium 220 MG Oral Tablet (Aleve) Take 1 Tablet by mouth every 12 hours as needed. Active Melatonin 10 MG Oral Tablet Take 1 Tablet by mouth at bedtime. Active Levothyroxine Sodium 100 MCG Oral Tablet (Levoxyl) TAKE 1 TABLET BY MOUTH ONCE DAILY 90 Tablet 2 4 Active Citalopram Hydrobromide 20 MG Oral Tablet (CeleXA)Indication s:Major depressive disorder, recurrent episode, moderate (HCC) TAKE 1 TABLET BY MOUTH EVERY MORNING 90 Tablet 1 4 Active Metoprolol Succinate ER 25 MG Oral Tablet Extended Release 24 Hour (toPROL XL)Indications:Par oxysmal atrial fibrillation (HCC) Take 0.5 Tablets by mouth in the morning. 45 Tablet 2 4 Active Pregabalin 25 MG Oral Capsule (Lyrica)Indication s:Neuropathy Take 1 Capsule by mouth in the morning and 1 Capsule before bedtime. 60 Capsule 1 4 Active documented as of this encounter (statuses as of 01/29/2024) Active Problems Problem Noted Date Diagnosed Date Primary hypercoagulable state 12/05/2022 AAA (abdominal aortic aneurysm) 09/25/2022 Overview (09/25/2022): 3.0 cm AAA noted on Renal US 09/21/22 Reactive airway disease with wheezing without co mplication 04/25/2022 History of CVA (cerebrovascular accident) 2021 H/O thoracic aortic aneurysm repair 10/18/2020 Allergic to IV contrast 10/18/2020 Major depressive disorder, recurrent episode, mo derate 04/20/2020 Stage 3a chronic kidney disease 04/20/2020 Hypothyroidism due to acquired atrophy of thyroi d 04/15/2019 History of pulmonary embolism 02/03/2017 Insomnia 09/30/2015 Hx of melanoma of skin 01/11/2015 Overview (10/02/2021): L breast 1995, depth unknown History of basal cell carcinoma 01/11/2015 Overview (10/02/2021): BCC L chest 02/01, BCCR upper back 12/31, BCC central back 01/29 Cervical spinal stenosis 09/07/2014 Vocal cord paralysis, unilateral complete 2014 Paroxysmal atrial fibrillation 11/09/2013 Neuropathy 11/26/2011 Migraine 08/25/2009 Dyslipidemia, goal LDL below 70 08/09/2009 Pulmonary sarcoidosis 03/02/2009 Cerebrovascular disease, arteriosclerotic, post- stroke 02/18/2009 Patent foramen ovale 02/08/2009 Anticoagulation management encounter 02/08/2009 long term care social worker current use of anticoagulant therapy 1 04/10/2008 Female stress incontinence 10/28/2008 History of breast cancer 04/09/2008 Overview (04/26/2008): left breast SPINAL STENOSIS-LUMBAR 07/02/2005 documented as of this encounter (statuses as of 01/29/2024) Resolved Problems Problem Noted Date Diagnosed Date Resolved Date CKD (chronic kidney disease) stage 3, GFR 30-59 ml/min 04/15/2019 04/28/2020 Current mild episode of vikash r depressive disorder without prior episode 07/09/2018 Advanced directives, counseling/discussion 12/30/2015 05/23/2022 Overview (08/15/2004): No, Advance Directive brochure given to patient. Abnormal ECG 11/09/2013 01/29/2017 Kidney disease, chronic, sta ge III (GFR 30-59 ml/min) 05/11/2013 07/09/2018 Overview: Per CKD protocol #1 Pulmonary nodules 10/14/2012 05/23/2022 Chest pain 10/18/2010 01/29/2017 Major depressive disorder 02/23/2010 Overview (01/08/2017): ICD-10 update of inactive term Follow-up examination, follo wing other surgery 12/19/2009 01/29/2017 Thoracic aortic aneurysm 08/09/200905/2020 Lymphadenopathy 03/02/2009 01/09/2024 Dyslipidemia, goal to be determined 03/01/2009 08/09/2009 Overview (03/01/2009): Per Lipid Taxonomy. 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 BENIGN HYPERTENSION 07/02/2005 01/22/20 09 ABN INVOLUN MOVEMENT NEC 05/12/200410/2022 Major depressive disorder 03/24/2004 Overview (01/08/2017): ICD-10 update of inactive term Hypothyroidism 04/15/2019 documented as of this encounter (statuses as of 01/29/2024) Immunizations Name Administration Dates Next Due H1N1 2009 Influenza, IM 04/15/2009 Pneumococcal Conjugate Vacc, 13 Valent (Prevnar) 06/27/2016 Pneumococcal Polysaccharide PPV23 (Pneumovax) 03/15/2015 Seasonal Influenza Vac., MDV , IM, 0.5 mL (Fluzone) 12/31/2013,01/08/2013,11/26/2011,12/04,01/05/2010,03/10/2009 Seasonal Influenza, PF, 6 M & above, IM , (FluLaval or Fluzone) 12/25/2017 Seasonal Influenza, Quadriva lent, No Preserve, IM 12/04/2016,01/10/2016,01/05/2015 Seasonal Influenza, Trivalen t, Adjuvanted, 65+ YRS, PF, (Fluad) 11/13/2019,12/11/2018 TDAP, Age 7 and older, IM (Adacel) 12/10/2007 Zoster Vaccine Recombinant (Shingrix) 11/11/2019 ,05/17/2019 documented as of this encounter Social History Tobacco Use Types Packs/Day Years Used Date Smoking Tobacco: Never Smokeless Tobacco: Never Alcohol Use Standard Drinks/Week Comments No 0 (1 standard drink = 0.6 oz pur e alcohol) PHQ-2 Answer Date Recorded PHQ Adult Total Score 1 01/09/2024 Hunger Vital Sign Answer Date Recorded Within the past 12 months, y ou worried that your food would run out before you got the money to buy more. Never true 11/05/19 22 Within the past 12 months, t he food you bought just didn't last and you didn't have money to get more. Never true 11/04/2021 Utilities Answer Date Recorded Do you have trouble paying y our heating, water, or electric bill? (Adult - for ages 18 years and over) Not on file 09/03/2023 Is your family able to pay t he heat, water, or electric bill? (Household - for ages 0-17 years) Not on file 09/03/2023 Does your family have access to good internet? (Household - for ages 0-17 years) Not on file 09/03/2023 Social Connections Answer Date Recorded How often do you feel lonely or isolated from those around you? 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 Fitzgerald previous message. She verbalized understanding. Patient declined to take the Zetia at this time. Patient said she already gets muscle aches when taking cholesterol medication, did not want to try Zetia. Patient also wanted to let Dr. Crisostomo know that she also stopped taking the Lyrica as it did not help her sleep. Patient said she is dealing with a headache currently as she did not sleep well last night. THOMAS. * Telephone Encounter - Landry Vargas RN - 01/21/2024 9:52 AM EST ----- Message from Alex Crisostomo MD sent at 01/19/2024 2:11 PM EST ----- Labs stable except lipids higher. Per last cardiology notes, looks like didn't want more statin (this may help) so can consider adding zetia 10 mg nightly to lower lipids. Watch out for muscle aches/pains, fatigue, cola colored urine, and call if develop. And repeat labs 1 month if agrees, let me know please and I will place orders documented in this encounter Plan of Treatment Upcoming Encounters Date Type Department Care Team (Late st Contact Info) Description 02/05/2024 1:30 PM EST Anticoagulation Pharmacy, [facility] [address] [facility] [place] [address] Pharmacist2, [facility] [address] [facility] [place] [place] [address] 04/27/2024 11:00 AM EST Office Visit Cardiology, [facility] [address] [facility] [place] [address] Kane Swain MD [address] [facility] [place] [address] 07/07/2024 12:00 PM EDT Office Visit Pulmonary Medicine, [facility] [address] [facility] [place] [address] Polo Perla MD [address] [facility] [place] [address] 07/29/2024 12:00 PM EDT Office Visit General Internal Medicine [facility] [address] [facility] [place] [place] [address] Alex Crisostomo MD [address] [facility] [place] [address] 09/07/2024 3:00 PM EDT Office Visit Nephrology, [facility] [address] [facility] [place] [place] [address] Sierra Newton MD [address] [facility] [place] [place] [address] 09/14/2024 1:00 PM EDT Imaging Radiology [facility] [address] [place] [address] 10/29/2024 2:40 PM EDT Office Visit General Internal Medicine [facility] [address] [facility] [place] [place] [address] Alex Crisostomo MD [address] [facility] [place] [address] Scheduled Procedures Name Priority Associated Diagnoses Date/Ti me COLONOSCOPY FLEXIBLE PROXIMA L DIAGNOSTIC Recall Encounter for screening colonoscopy Health Maintenance Due Date Last Done Comments Cologuard 1994 Fecal Occult Blood Test 1994 Sigmoidoscopy 1994 DTap/Tdap Vaccines (2 - Td or Tdap) 12/09/2017 12/10/2007 Adult Wellness Visit 08/03/2021 08/03/2020 COVID-19 Vaccine ( - season) 2023 Influenza Vaccine (FLU shot) (#1) 2023 11/13/2019, 12/11/2018, 12/25/2017, Additional history exists Mammogram 11/30/2023 11/29/2022, 11/16, 11/28/2021, Additional history exists GFR 07/10/2024 01/10/2024, 04/0 05/2023, 12/07/2022, Additional history exists Depression Monitoring 01/08/2025 01/09/2024 Albumin/Creatinine Ratio 01/09/2025 024, 09/21/2022, 11/09/2021, Additional history exists CKD HGB USE SMARTSET 33966 01/09/202501/09, 01/10/2024, 09/21/2022, Additional history exists CKD PHOS USE SMARTSET 49801 01/09/202512/17, 12/07/2022, 11/09/2021, Additional history exists TSH 01/09/2025 01/10/2024, 04/0 05/2023, 12/07/2022, Additional history exists DXA Scan 08/23/2025 08/23/2020, 07/17, 07/29/2013, Additional history exists Colonoscopy 08/08/2026 08/08/2016, 05/02/2004 Colorectal Cancer Screening 08/08/2026 Pneumococcal Vaccine: 65+ Years Completed 06/27/2016, 03/15/2015 Zoster Vaccines Completed 11/11/2019, 05/17/2019 HPV (Gardasil) Vaccine Aged Out No lo nger eligible based on patient's age to complete this topic Hepatitis B Vaccine Aged Out No longe r eligible based on patient's age to complete this topic MENINGOCOCCAL (MENACTRA/MENVEO) Aged Out No longer eligible based on patient's age to complete this topic documented as of this encounter Medical Devices Implanted Type Area Manufacturing Design Engineer Device Identifier Shelf Expiration Date Model / Serial / Lot Mesh 10 X 14 [id number] - [id number] Implanted:Qty: 1 on 12/19/2009 [place] [facility] [place] Pelvis [employer] 08/16/2014 [id number] / / [id number] documented as of this encounter Advance Directives * Full Code (Latest Code Status on File) Date Activated Date Inactivated Comments 12/19/2009 3:59 PM 12/21/2009 4:23 PM This order r eflects the patients wishes and were consensually agreed upon. Question Answer Comments Discussion of Advance Directives occurred with: Patient Care Teams Engineering Consultant Relationship Specialty Start Date End Date Alex Crisostomo MD [address] [place] [address] PCP - General Internal Medicine 03/07/21 documented as of this encounter
--- OUTSIDE RECORDS SUMMARY | 2024-02-06 21:03 | External Medical Summary | Summary of Care ---
Author Name Unknown Organization [facility] Address [address] [place] [address] Phone [phone] Care Team Providers Care Chute Operator Name Role Phone Alex Crisostomo MD Primary Care Provider + Reason for Visit * Reason Comments Outpatient Testing Encounter Details Date Type Department Care Team (Late st Contact Info) Description 01/10/2024 2:40 PM EDT Laboratory Laboratory [facility] [address] [place] [phone] [facility] [address] [place] [address] Stage 3a chronic kidney disease (HCC); Paroxysmal atrial fibrillation (HCC); Hypothyroidism due to acquired atrophy of thyroid Allergies Active Allergy Reactions Criticality Noted Date Comments Propoxyphene N-Acetaminophen Other (Please comment) 06/01/2008 Fretfull sleep Hydromorphone Hcl Psych complications 4 hallucinations Iodinated Contrast Media Edema airway High 02/13/2011 Levofloxacin 02/21/2016 Oxycodone-Acetaminophen 01/30/2011 Hydrocodone-Acetaminoph en 01/30/2011 Azithromycin Dihydrate 12/20/2008 documented as of this encounter (statuses as of 01/10/2024) Medications Medication Sig Dispensed Refills Start Date End Date Status MULTIPLE VITAMIN PO TABS Active PROBIOTIC PO CAPS one cap daily 07/13/2010 Acti ve ACETAMINOPHEN 500 MG PO TABS as needed. 100 Tab 0 05/07/2013 Active OMEGA 3 1000 MG PO CAPS once daily (1200mg) 12/31/2013 Active COQ-10 200 MG PO CAPS daily Act kirsten ASPIR-LOW 81 MG PO TBEC one pill each day 05/17/2014 Active Red Yeast Rice 600 MG TABS Tablet Take 1 Tablet by mouth in the morning. 01/02/2017 Active Turmeric 500 MG Capsule Take 1 Capsule by mouth in the morning. 01/29/2017 Active Rosuvastatin Calcium 5 MG Oral Tablet (Crestor) TAKE ONE TABLET BY MOUTH EVERY OTHER DAY 45 Tablet 3 03/27/2023 Active Warfarin Sodium 5 MG Oral Tablet (Jantoven)Indications: [facility] current use of anticoagulant therapy TAKE ONE AND A HALF TABLETS BY MOUTH EVERY DAY 135 Tablet 3 06/27/2023 Active Naproxen Sodium 220 MG Oral Tablet (Aleve) Take 1 Tablet by mouth every 12 hours as needed. Active Melatonin 10 MG Oral Tablet Take 1 Tablet by mouth at bedtime. Active Levothyroxine Sodium 100 MCG Oral Tablet (Levoxyl) TAKE 1 TABLET BY MOUTH ONCE DAILY 90 Tablet 2 11/04/2023 Active Citalopram Hydrobromide 20 MG Oral Tablet (CeleXA)Indications:Ma sawyer depressive disorder, recurrent episode, moderate (HCC) TAKE 1 TABLET BY MOUTH EVERY MORNING 90 Tablet 1 11/20/2023 Active Metoprolol Succinate ER 25 MG Oral Tablet Extended Release 24 Hour (toPROL XL)Indications:Paroxys mal atrial fibrillation (HCC) Take 0.5 Tablets by mouth in the morning. 45 Tablet 2 01/09/2024 Active Pregabalin 25 MG Oral Capsule (Lyrica)Indications:Ne uropathy Take 1 Capsule by mouth in the morning and 1 Capsule before bedtime. 60 Capsule 1 01/09/2024 Active documented as of this encounter (statuses as of 01/10/2024) Active Problems Problem Noted Date Diagnosed Date Primary hypercoagulable state 12/05/2022 AAA (abdominal aortic aneurysm) 09/25/2022 Overview: 3.0 cm AAA noted on Renal US [...] 09/30/2015 Hx of melanoma of skin 01/11/2015 Overview: L breast 1995, depth unknown History of basal cell carcinoma 01/11/2015 Overview: BCC L chest 02/01, BCCR upper back 12/31, BCC central back 01/29 Cervical spinal stenosis 09/07/2014 Vocal cord paralysis, unilateral complete 2014 Paroxysmal atrial fibrillation 11/09/2013 Neuropathy 11/26/2011 Migraine 08/25/2009 Dyslipidemia, goal LDL below 70 08/09/2009 Pulmonary sarcoidosis 03/02/2009 Cerebrovascular disease, arteriosclerotic, post- stroke 02/18/2009 Patent foramen ovale 02/08/2009 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 Abnormal ECG 11/09/2013 01/29/2017 Kidney disease, chronic, sta ge III (GFR 30-59 ml/min) 05/11/2013 07/09/2018 Overview: Per CKD protocol #1 Pulmonary nodules 10/14/2012 05/23/2022 Chest pain 10/18/2010 01/29/2017 Major depressive disorder 02/23/2010 Overview: ICD-10 update of inactive term Follow-up examination, follo wing other surgery 12/19/2009 01/29/2017 Thoracic aortic aneurysm 08/09/200905/2020 Lymphadenopathy 03/02/2009 01/09/2024 Dyslipidemia, goal to be determined 03/01/2009 08/09/2009 Overview: Per Lipid Taxonomy. Primary hypercoagulable state 02/08/2009 05/23/2022 Overview: MTHFR- Two copies of C 677 T gene mutation Other pulmonary embolism and infarction 02/08/2009 02/03/2017 Esophageal reflux 02/10/2008 07/09/2018 PURE HYPERCHOLESTEROLEM 07/17/200502/15 Overview: Per Lipid Taxonomy. BENIGN HYPERTENSION 07/02/2005 01/22/20 09 ABN INVOLUN MOVEMENT NEC 05/12/200410/2022 Major depressive disorder 03/24/2004 Overview: ICD-10 update of inactive term Hypothyroidism 04/15/2019 documented as of this encounter (statuses as of 01/10/2024) Immunizations Name Administration Dates Next Due H1N1 2009 Influenza, IM 04/15/2009 PPD 04/21/2004 Pneumococcal Conjugate Vacc, 13 Valent (Prevnar) 06/27/2016 Pneumococcal Polysaccharide PPV23 (Pneumovax) 03/15/2015 Seasonal Influenza Vac., MDV , IM, 0.5 mL (Fluzone) 12/31/2013,01/08/2013,11/26/2011,12/04,01/05/2010,03/10/2009,01/19/2003 Seasonal Influenza, PF, 6 M & above, [...] Answer Date Recorded PHQ Adult Total Score 0 12/05/2022 Hunger Vital Sign Answer Date Recorded Within the past 12 months, y ou worried that your food would run out before you got the money to buy more. Never true 11/05/19 Within the past 12 months, t he [...] years and over) Not on file 09/03/2023 Sex and Gender Information Value Date Recorded Sex Assigned at Female 07/09/2018 10:19 AM EDT Gender Identity Female 07/09/2018 10:19 AM EDT Sexual Orientation Straight 07/09/2018 10 :19 AM EDT Job Start Date Occupation Industry Not on file Not on file Not on file documented as of this encounter Plan of Treatment Upcoming Encounters Date Type Department Care Team (Late st Contact Info) Description 02/05/2024 1:30 PM EST Anticoagulation Pharmacy, [facility] [address] [place] [address] Pharmacist2, [facility] [address] [place] [address] 04/27/2024 11:00 AM EST Office Visit Cardiology, [facility] [address] [address] Kane Swain MD [address] [place] [address] 07/07/2024 12:00 PM EDT Office Visit Pulmonary Medicine, [facility] [address] [facility] [place] [address] Polo Perla MD [address] [place] [address] 07/29/2024 12:00 PM EDT Office Visit General Internal Medicine [facility] [address] [facility] [place] [address] Alex Crisostomo MD [address] [facility] [place], [place] [address] 09/07/2024 3:00 PM EDT Office Visit Nephrology, [facility] [address] [facility] [place], [place] [address] Sierra Newton MD [address] [facility] [place], [place] [address] 09/14/2024 1:00 PM EDT Imaging Radiology [facility] [address] [facility] [place] [address] 10/29/2024 2:40 PM EDT Office Visit General Internal Medicine [facility] [address] [facility] [place], [place] [address] Alex Crisostomo MD [address] [facility] [place], [place] [address] Pending Results Name Type Priority Associated Diagnoses Date /Time COMPREHENSIVE METABOLIC PANEL Lab Routine Stage 3a chronic kidney disease (HCC) 01/10/2024 2:42 PM EDT LIPID PANEL WITH DIRECT LDL IF TG IS HIGH Lab Routine Stage 3a chronic kidney disease (HCC) 01/10/2024 2:42 PM EDT PHOSPHORUS Lab Routine Stage 3a chronic kidney disease (HCC) 01/10/2024 2:42 PM EDT TSH Lab Routine Hypothyroidism due to acquired atrophy of thyroid 01/10/2024 2:42 PM EDT ALBUMIN / CREATININE RATIO, URINE Lab Routine Stage 3a chronic kidney disease (HCC) 01/10/2024 2:49 PM EDT Scheduled Procedures Name Priority Associated Diagnoses Date/Ti me COLONOSCOPY FLEXIBLE PROXIMA L DIAGNOSTIC Recall Encounter for screening colonoscopy Health Maintenance Due Date Last Done Comments Cologuard 1994 Fecal Occult Blood Test 1994 Sigmoidoscopy 1994 DTap/Tdap Vaccines (2 - Td or Tdap) 12/09/2017 12/10/2007 Adult Wellness Visit 08/03/2021 08/03/2020 Albumin/Creatinine Ratio 09/22/2023 023, 11/09/2021, 04/26/2021, Additional history exists CKD HGB USE SMARTSET 97676 09/22/202301/09, 01/10/2024, 09/21/2022, Additional history exists Influenza Vaccine (FLU shot) (#1) 2023 11/13/2019, 12/11/2018, 12/25/2017, Additional history exists Mammogram 11/30/2023 11/29/2022, 11/16, 11/28/2021, Additional history exists CKD PHOS USE SMARTSET 28324 12/08/202311/17, 11/09/2021, 10/18/2020, Additional history exists GFR 12/19/2023 06/19/2023, 11/17, 09/21/2022, Additional history exists COVID-19 Vaccine ( season) 2024 Postponed from 11/17/2023 (Unavailable) TSH 06/18/2024 06/19/2023, 11/17, 11/09/2021, Additional history exists Depression Monitoring 01/08/2025 01/09/2024 DXA Scan 08/23/2025 08/23/2020, 07/17, 07/29/2013, Additional [...] this encounter Medical Devices Implanted Type Area Swaging Machine Adjuster Device Identifier Shelf Expiration Date Model / Serial / Lot Mesh 10 X 14 [id number] - [id number] [place]ed:Q[place] 1 on 12[place]19[place]2009 [place] [facility] [place] Pelvis [employer] 08/16/2014 [id number] / / [id number] documented as of this encounter Procedures Procedure Name Priority Date/Time Associated Diagnosis Comments DIFFERENTIAL, AUTOMATED Routine 01/10/2024 2:42 PM EDT Paroxysmal atrial fibrillation (HCC) CBC Routine 01/10/2024 2:42 PM EDT Paroxysmal atrial fibrillation (HCC) CBC Routine 01/10/2024 2:42 PM EDT Paroxysmal atrial fibrillation (HCC) documented in this encounter Results * DIFFERENTIAL, AUTOMATED (01/10/2024 2:42 PM EDT) WBC 6.17 4.00 - 10.80 K/uL 01/10/2024 2:55 PM EDT LAB[facility]ATORY [facility] 56-02 Neutrophils % 52.3 40.0 - 75.0 % 01/10/2024 2:55 PM EDT LAB[facility]ATORY [facility] 56-02 Lymphocytes % 33.7 18.0 - 42.0 % 01/10/2024 2:55 PM EDT [facility]ORY [facility] 56-02 Monocytes % 9.6 1.0 - 11.0 % 01/10/2024 2:55 PM EDT [facility] 56-02 Eosinophils % 4.1 0.0 - 6.0 % 01/10/2024 2:55 PM EDT [facility]ORY [facility] 56-02 Basophils % 0.3 0.0 - 2.0 % 01/10/2024 2:55 PM EDT [facility]ORY [facility] 56-02 Absolute Neutrophils 3.23 1.80 - 7.70 K/uL 01/10/2024 2:55 PM EDT [facility] 56-02 Absolute Lymphocytes 2.08 1.00 - 4.80 K/ul 01/10/2024 2:55 PM EDT [facility] 56 Absolute Monocytes 0.59 0.00 - 1.10 K/uL 01/10/2024 2:55 PM EDT [facility] Absolute Eosinophils 0.25 0.00 - 0.70 K/uL 01/10/2024 2:55 PM EDT [facility] Absolute Basophils 0.02 0.00 - 0.20 K/uL 01/10/2024 2:55 PM EDT [facility] 56 Blood Venous blood specimen / Unknown Venipuncture / Unknown 01/10/2024 2:42 PM EDT 01/10/2024 2:42 PM EDT Alex Crisostomo MD LAB BLOOD ORDERA BLES [facility] [address] [place] [address] * CBC (01/10/2024 2:42 PM EDT) WBC 6.17 4.00 - 10.80 K/uL 01/10/2024 2:55 PM EDT [facility] RBC 4.60 3.85 - 5.15 M/uL 01/10/2024 2:55 PM EDT [facility] HGB 14.0 12.0 - 15.3 g/dL 01/10/2024 2:55 PM EDT [facility] HCT 43.3 36.0 - 45.2 % 01/10/2024 2:55 PM EDT [facility] MCV 94.1 81.5 - 97.5 fL 01/10/2024 2:55 PM EDT [facility] MCH 30.4 27.0 - 34.0 pg 01/10/2024 2:55 PM EDT [facility] MCHC 32.3 32.0 - 36.0 g/dL 01/10/2024 2:55 PM EDT [facility] RDW 15.4 11.5 - 15.5 % 01/10/2024 2:55 PM EDT [facility] PLT 214 140 - 400 K/uL 01/10/2024 2:55 PM EDT [facility] MPV 9.3 6.6 - 11.1 fL 01/10/2024 2:55 PM EDT [facility] Blood Venous blood specimen / Unknown Venipuncture / Unknown 01/10/2024 2:42 PM EDT 01/10/2024 2:42 PM EDT Alex Crisostomo MD LAB BLOOD ORDERA BLES [facility] 200 [facility] [place] [address] documented in this encounter Visit Diagnoses Diagnosis Stage 3a chronic kidney disease (HCC) Paroxysmal atrial fibrillation (HCC) Atrial fibrillation Hypothyroidism due to acquired atrophy of thyroid documented in this encounter Advance Directives * Full Code (Latest Code Status on File) Date Activated Date Inactivated Comments 12/19/2009 3:59 PM 12/21/2009 4:23 PM This order r eflects the patients wishes and were consensually agreed upon. Question Answer Comments Discussion of Advance Directives occurred with: Patient Care Teams Chute Operator Relationship Specialty Start Date End Date [facility] [address] P[facility] - General Internal Medicine 03/07/21 documented as of this encounter
--- OUTSIDE RECORDS SUMMARY | 2024-02-06 21:03 | External Medical Summary | Summary of Care ---
Author Name Unknown Organization [facility] Address [address] [place] [address] Phone [phone] Care Team Providers Care Water Resources Project Manager Name Role Phone Alex Crisostomo MD Primary Care Provider + Reason for Visit * Reason Comments Outpatient Testing Encounter Details Date Type Department Care Team (Late st Contact Info) Description 01/10/2024 2:40 PM EDT Laboratory Laboratory 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 [address] [place] [address] Pharmacist2, [facility] [address] [place] [address] 04/27/2024 11:00 AM EST Office Visit Cardiology, [facility] [address] [address] Kane Swain MD [address] [address] 07/07/2024 12:00 PM EDT Office Visit Pulmonary Medicine, [facility] [address] [place] [address] Polo Perla MD [address] [place] [address] 07/29/2024 12:00 PM EDT Office Visit General Internal Medicine [facility] 200 [facility] [place] [address] Alex Crisostomo MD 200 [facility] [place], [place] [address] 09/07/2024 3:00 PM EDT Office Visit Nephrology, [facility] [address] [facility] [place], [place] [address] Sierra Newton MD [address] [facility] [place], [place] [address] 09/14/2024 1:00 PM EDT Imaging Radiology [facility] [address] [facility] [address] 10/29/2024 2:40 PM EDT Office Visit General Internal Medicine [facility] 200 [facility] [place], [place] [address] Alex Crisostomo MD [address] [facility] [place], [place] [address] Pending Results Name Type Priority Associated Diagnoses Date /Time COMPREHENSIVE METABOLIC PANEL Lab Routine Stage 3a chronic kidney disease (HCC) 01/10/2024 2:42 PM EDT LIPID PANEL WITH DIRECT LDL IF TG IS HIGH Lab Routine Stage 3a chronic kidney disease (HCC) 01/10/2024 2:42 PM EDT CBC WITH WBC DIFFERENTIAL Lab Routine Paroxysmal atrial fibrillation (HCC) 01/10/2024 2:42 PM EDT PHOSPHORUS Lab Routine Stage 3a chronic kidney disease (HCC) 01/10/2024 2:42 PM EDT TSH Lab Routine Hypothyroidism due to acquired atrophy of thyroid 01/10/2024 2:42 PM EDT CBC Lab Routine Paroxysmal atrial fibrillation (HCC) 01/10/2024 2:42 PM EDT DIFFERENTIAL, AUTOMATED Lab Routine Paroxysmal atrial fibrillation (HCC) 01/10/2024 2:42 PM EDT ALBUMIN / CREATININE [...] Additional history exists CKD HGB USE SMARTSET 78901 09/22/202309/21, 11/09/2021, 11/09/2021, Additional history exists Influenza Vaccine (FLU shot) (#1) 2023 11/13/2019, 12/11/2018, 12/25/2017, Additional history exists Mammogram 11/30/2023 11/29/2022, 11/16, 11/28/2021, Additional history exists CKD PHOS USE SMARTSET 05639 12/08/202311/17, 11/09/2021, 10/18/2020, Additional history exists GFR [...] this encounter Medical Devices Implanted Type Area News Assignment Editor Device Identifier Shelf Expiration Date Model / Serial / Lot Mesh 10 X 14 [id number] - [id number] Implanted:Qty: 1 on 12/19/2009 at [place] [facility] [place] N/A: Pelvis [employer] 08/16/2014 [id number] / / [id number] documented as of this encounter Visit Diagnoses Diagnosis Stage 3a [...] Advance Directives occurred with: Patient Care Teams Water Resources Project Manager Relationship Specialty Start Date End Date Alex Crisostomo MD 200 [place] [address] PCP - General Internal Medicine 03/07/21 documented as of this encounter
--- OUTSIDE RECORDS SUMMARY | 2024-02-06 21:03 | External Medical Summary | Summary of Care ---
Author Name Unknown Organization [facility] Address [address] [place] [address] Phone [phone] Care Team Providers Care Commercial Stripper Name Role Phone Alex Crisostomo MD Primary Care Provider + Reason for Visit * Reason Comments Dosage Adjustment In Person (Anticoag Cl inic) Encounter Details Date Type Department Care Team (Latest Contact Info) Description 01/09/2024 1:50 PM EDT Anticoagulation Pharmacy, [facility] [address] [place] [address] Pharmacist1, [facility] 200 [place] [address] Paroxysmal atrial fibrillation (HCC)*; Patent foramen ovale; History of pulmonary embolism Allergies Active Allergy Reactions Criticality Noted Date Comments Propoxyphene N-Acetaminophen Other (Please comment) 06/01/2008 Fretfull sleep Hydromorphone Hcl Psych complications 4 hallucinations Iodinated Contrast Media Edema airway High 02/13/2011 Levofloxacin 02/21/2016 Oxycodone-Acetaminophen 01/30/2011 Hydrocodone-Acetaminoph en 01/30/2011 Azithromycin Dihydrate 12/20/2008 documented as of this encounter (statuses as of 01/09/2024) Medications Medication Sig Dispensed Refills Start Date [...] Active Warfarin Sodium 5 MG Oral Tablet (Jantoven)Indicatio ns:FPC current use of anticoagulant therapy TAKE ONE [...] Active Citalopram Hydrobromide 20 MG Oral Tablet (CeleXA)Indications :Major depressive disorder, recurrent episode, moderate (HCC) TAKE 1 TABLET BY MOUTH EVERY MORNING 90 Tablet 1 11/20/2023 Active Metoprolol Succinate ER 25 MG Oral Tablet Extended Release 24 Hour (toPROL XL)Indications:Paro xysmal atrial fibrillation (HCC) Take 0.5 Tablets by mouth in the morning. 45 Tablet 2 01/09/2024 Active Pregabalin 25 MG Oral Capsule (Lyrica)Indications :Neuropathy Take 1 Capsule by mouth in the morning and 1 Capsule before bedtime. 60 Capsule 1 01/09/2024 Active Tylenol PM Extra Strength 500-25 MG Oral Tablet (diphenhydrAMINE-AP AP (sleep)) Take 1 Tablet by mouth 3 times a day as needed for Itching. 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 1 04/10/2008 Female stress incontinence 10/28/2008 History of breast cancer 04/09/2008 Overview: left breast SPINAL STENOSIS-LUMBAR 07/02/2005 documented as of this encounter (statuses as of 01/09/2024) Resolved Problems Problem Noted Date Diagnosed Date [...] ICD-10 update of inactive term Follow-up examination, joseluiso wing other surgery 12/19/2009 01/29/2017 Thoracic aortic [...] as of this encounter (statuses as of 01/09/2024) Immunizations Name Administration Dates Next Due H1N1 [...] on file documented as of this encounter Progress Notes * Daniel Mas RPh - 01/09/2024 1:59 PM EDT Medication Therapy Disease Management - Anticoagulation Debbie Jackson 1950 Current Warfarin Dose As of 01/09/2024 Warfarin maintenance plan: 7.5 mg (5 mg x 1.5) every Tue, Mayela, Sat; 5 mg (5 mg x 1) all other days Patient Findings Negatives: Signs/symptoms of thrombosis, Signs/symptoms of bleeding, Change in health, Change in alcohol use, Change in activity, Upcoming invasive procedure, Missed doses, Extra doses, Change in medications, Change in diet/appetite, Bruising INR Result As of 01/09/2024 INR goal: 2.0-3.0 INR used for dosin.2 (01/09/2024) Warfarin Plan As of 01/09/2024 Full warfarin instructions: 7.5 mg every Tue, Mayela, Sat; 5 mg all other days No change documented: Daniel Mas RPh Next INR check: 02/05/2024 Repeat PT/INR in 4 week(s) Weekly dose: not changed I spent a total of 10-19 minutes (exact time 10 mins) on the date of service in preparation, delivery, and documentation of the care provided to Debbie Jackson excluding any time spent in the performance of separately billed services or time spent by another provider/QHP. Daniel Gleason RPh, CACP, CDE Clinical Pharmacist [facility] 01/09/2024 2:08 PM documented in this encounter Plan of Treatment Upcoming Encounters Date Type Department Care Team (Late st Contact Info) Description 02/05/2024 1:30 PM EST Anticoagulation Pharmacy, [facility] [address] [place] [address] Pharmacist2, [facility] [address] [facility] [address] 04/27/2024 11:00 AM EST Office Visit Cardiology, [facility] [address] [place] [address] Kane Swain MD [address] [place] [address] 07/07/2024 12:00 PM EDT Office Visit Pulmonary Medicine, [facility] 132 [facility] [place] [address] Pol[facility] [address] [facility] [address] 09/07/2024 3:00 PM EDT Office Visit Nephrology, [facility] 200 [facility] [place] [address] Sierra Newton MD 200 [facility] [place] [address] 09/14/2024 1:00 PM EDT Imaging Radiology [facility] [address] [place] [address] 10/29/2024 2:40 PM EDT Office Visit General Internal Medicine [facility] 200 [facility] [place] [address] Alex Crisostomo MD 200 [facility] [place] [address] Scheduled Procedures Name Priority Associated Diagnoses Date/Ti me COLONOSCOPY FLEXIBLE PROXIMA L DIAGNOSTIC Recall Encounter for screening colonoscopy Health Maintenance Due Date Last Done Comments Cologuard 1994 Fecal Occult Blood Test 1994 Sigmoidoscopy 1994 DTap/Tdap Vaccines (2 - Td or Tdap) 12/09/2017 12/10/2007 Adult Wellness Visit 08/03/2021 08/03/2020 Albumin/Creatinine Ratio 09/22/2023 023, 11/09/2021, 04/26/2021, Additional history exists CKD HGB USE SMARTSET 98121 09/22/202309/21, 11/09/2021, 11/09/2021, Additional history exists Influenza Vaccine (FLU shot) (#1) 2023 11/13/2019, 12/11/2018, 12/25/2017, Additional history exists Mammogram 11/30/2023 11/29/2022, 11/16, 11/28/2021, Additional history exists CKD PHOS USE SMARTSET 23012 12/08/202311/17, 11/09/2021, 10/18/2020, Additional history exists GFR [...] this encounter Medical Devices Implanted Type Area Carroter Device Identifier Shelf Expiration Date Model / Serial / Lot Mesh 10 X 14 [id number] - [id number] Implanted:Qty: 1 on 12/19/2009 at [facility] N/A: Pelvis [employer] 08/16/2014 [id number] / / [id number] documented as of this encounter Procedures Procedure Name Priority Date/Time Associated Diagnosis Comments INR FINGERSTICK, POINT OF CARE STAT 01/09/2024 2:02 PM EDT Paroxysmal atrial fibrillation (HCC) documented in this encounter Results * INR FINGERSTICK, POINT OF CARE (01/09/2024 2:02 PM EDT) Fingerstick INR 2.2 INR 2:05 PM EDT [facility] 56-02 Blood 01/09/2024 2:02 PM EDT 01/09/2024 2:05 PM EDT [facility]- - 01/09/2024 2:05 PM EDT Therapeutic ranges for non-operative patients: Prophylaxsis/treatment of DVT: (Range:2.0-3.0) Treatment of pulmonary embolism:(Range:2.0-3.0) Prevention of systemic embolism from: -tissue heart valves -acute myocardial infarction -valvular heart disease -atrial fibrillation (Range: 2.0-3.0) Mechanical prosthetic valves: (Range: 2.5-3.5) Farrukh Cartagena [facility] LAB POINT O F CARE TEST DOCKED DEVICE UNSOLICITED RESULTS [facility] [place] 200 [facility] [place] [address] documented in this encounter Visit Diagnoses Diagnosis Paroxysmal atrial fibrillation (HCC)- Primary Atrial fibrillation Patent foramen ovale Ostium secundum type atrial septal defect History of pulmonary embolism Personal history of pulmonary embolism documented in this encounter Advance Directives * Full Code (Latest Code Status on File) Date Activated Date Inactivated Comments 12/19/2009 3:59 PM 12/21/2009 4:23 PM This order r eflects the patients wishes and were consensually agreed upon. Question Answer Comments Discussion of Advance Directives occurred with: Patient Care Teams Commercial Stripper Relationship Specialty Start Date End Date Alex Crisostomo MD 200 [facility] [place] [address] PCP - General Internal Medicine 03/07/21 documented as of this encounter
--- OUTSIDE RECORDS SUMMARY | 2024-02-06 21:03 | External Medical Summary ---
Author Name Unknown Address Unknown Organization [id number]:[facility] [place] [address] [place] [address] Laboratory Report Ordering Provider Test Date Status SCOTTGIGI 01/10/2024 14:49:55 Final Normal: <30 mg/g creatinine< br/>High: 30-300 mg/g creatinine
Very High: >300 mg/g creatinine
Nephrotic: >2200 mg/g creatinine Observation Date Value Abnormality Reference (Units ) Status Albumin, Urine 01/10/2024 14:49:55 <1.20 (mg/dL) Final Creatinine, Urine 01/10/2024 14:49:55 123 (mg/dL) Final Albumin/Creatinine [Mass Ratio] in Urine 01/10/2024 14:49:55 <10 <30 (mg/g Creat) Final Performing Location [facility] [place] [facility] [place] [address]
--- OUTSIDE RECORDS SUMMARY | 2024-02-06 21:03 | External Medical Summary ---
Author Name Unknown Address Unknown Organization [id number]:[facility] - [address] [place] [address] Laboratory Report Ordering Provider Test Date Status ARTEMIO CHAVEZ 01/10/2024 14:42:11 Final Observation Date Value Abnormality Reference (Units ) Status BUN 01/10/2024 14:42:11 21 Above high normal 6-20 (mg/dL) Final Creatinine 01/10/2024 14:42:11 1.1 Above high normal 0.5-1.0 (mg/dL) Final Glomerular filtration rate/1.73 sq M.predicted [Volume Rate/Area] in Serum, Plasma or Blood by Creatinine-based formula (CKD-EPI) 01/10/2024 14:42:11 56 Below low normal >=60 (mL/min) Final eGFR is calculated based on the CKD-EPI 2020 equation. Sodium 01/10/2024 14:42:11 142 135-146 (m mol/L) Final Potassium 01/10/2024 14:42:11 4.7 3.5-5.1 (m mol/L) Final Cl 01/10/2024 14:42:11 104 98-107 (mm ol/L) Final CO2 01/10/2024 14:42:11 27 22-32 (mmo l/L) Final Anion gap 01/10/2024 14:42:11 11 7-15 (mmol /L) Final Glucose 01/10/2024 14:42:11 102 70-120 (mg /dL) Final Albumin 01/10/2024 14:42:11 4.1 3.8-5.0 (g /dL) Final AST (Aspartate aminotransferase) 01/10/2024 14:42:11 23 10-35 (U/L) Final Alk Phos 01/10/2024 14:42:11 54 35-130 (U/ L) Final Bilirubin, Total 01/10/2024 14:42:11 0.7 <=1 .2 (mg/dL) Final Calcium 01/10/2024 14:42:11 9.6 8.4-10.2 ( mg/dL) Final Protein 01/10/2024 14:42:11 6.5 6.0-8.3 (g /dL) Final ALT (Alanine aminotransferase) 01/10/2024 14:42:11 19 10-35 (U/L) Final Performing Location [facility] - [address] [place] [address]
--- OUTSIDE RECORDS SUMMARY | 2024-02-06 21:03 | External Medical Summary | Summary of Care ---
Author Name Unknown Organization [facility] Address [address] [place] [address] Phone [phone] Care Team Providers Care Color Control Supervisor Name Role Phone Alex Crisostomo MD Primary Care Provider + Reason for Visit * Reason Comments Dosage Adjustment In Person (Anticoag Cl inic) Encounter Details Date Type Department Care Team (Latest Contact Info) Description 11/28/2023 1:20 PM EDT Anticoagulation Pharmacy, [facility] [address] [place] [address] Pharmacist1, [facility] 200 [facility] [place] [address] Anticoagulation management encounter*; Paroxysmal atrial fibrillation (HCC); Patent foramen ovale; History of pulmonary embolism Allergies Active Allergy Reactions Criticality Noted Date Comments Propoxyphene N-Acetaminophen Other (Please comment) 06/01/2008 Fretfull sleep Hydromorphone Hcl Psych complications 4 hallucinations Iodinated Contrast Media Edema airway High 02/13/2011 Levofloxacin 02/21/2016 Oxycodone-Acetaminophen 01/30/2011 Hydrocodone-Acetaminoph en 01/30/2011 Azithromycin Dihydrate 12/20/2008 documented as of this encounter (statuses as of 11/28/2023) Medications Medication Sig Dispensed Refills Start Date [...] OTHER DAY 45 Tablet 3 03/27/2023 Active Metoprolol Succinate ER 25 MG Oral Tablet Extended Release 24 Hour (toPROL XL)Indications:Parox ysmal atrial fibrillation (HCC) Take 0.5 Tablets by mouth in the morning. 45 Tablet 2 06/19/2023 Active Additional Information Patient taking differently:12.5 mg OralQ-1999, Reported on 09/18/2023 Warfarin Sodium 5 MG Oral Tablet (Jantoven)Indication s:correction current use of anticoagulant therapy TAKE ONE [...] Active Citalopram Hydrobromide 20 MG Oral Tablet (CeleXA)Indications: Major depressive disorder, recurrent episode, moderate (HCC) TAKE 1 TABLET BY MOUTH EVERY MORNING 90 Tablet 1 11/20/2023 Active documented as of this encounter (statuses as of 11/28/2023) Active Problems Problem Noted Date Diagnosed Date [...] LDL below 70 08/09/2009 Pulmonary sarcoidosis 03/02/2009 Lymphadenopathy 03/02/2009 Cerebrovascular disease, arteriosclerotic, post- stroke 02/18/2009 Patent foramen ovale 02/08/2009 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 1 04/10/2008 Female stress incontinence 10/28/2008 History of breast cancer 04/09/2008 Overview: left breast SPINAL STENOSIS-LUMBAR 07/02/2005 documented as of this encounter (statuses as of 11/28/2023) Resolved Problems Problem Noted Date Diagnosed Date [...] surgery 12/19/2009 01/29/2017 Thoracic aortic aneurysm 08/09/200905/2020 Dyslipidemia, goal to be determined 03/01/2009 08/09/2009 [...] as of this encounter (statuses as of 11/28/2023) Immunizations Name Administration Dates Next Due H1N1 2009 Influenza, IM 04/15/2009 Pneumococcal Conjugate Vacc, 13 Valent (Prevnar) 06/27/2016 Pneumococcal Polysaccharide PPV23 (Pneumovax) 03/15/2015 Seasonal Influenza, PF, 6 M & above, IM , (FluLaval or Fluzone) 12/25/2017 Seasonal Influenza, Quadriva lent, No Preserve, IM 12/04/2016,01/10/2016,01/05/2015 Seasonal Influenza, Trivalen t, (IIV3), with Preserv, (Fluzone) 12/31/2013,01/08/2013,11/26/2011,12/04,01/05/2010,03/10/2009 Seasonal Influenza, Trivalen t, Adjuvanted, 65+ YRS, [...] of this encounter Progress Notes * Daniel Mas, [facility] - 11/28/2023 1:15 PM EDT Images from the original note were not included. Medication Therapy Disease Management - Anticoagulation Debbie Jackson 1950 Current Warfarin Dose As of 11/28/2023 Warfarin maintenance plan: 7.5 mg (5 mg x 1.5) every Tue, Mayela, Sat; 5 mg (5 mg x 1) all other days Patient Findings Negatives: Signs/symptoms of thrombosis, Signs/symptoms of bleeding, Change in health, Change in alcohol use, Change in activity, Upcoming invasive procedure, Missed doses, Extra doses, Change in medications, Change in diet/appetite, Bruising INR Result As of 11/28/2023 INR goal: 2.0-3.0 INR used for dosin.4 (11/28/2023) Warfarin Plan As of 11/28/2023 Full warfarin instructions: 11/27: Hold; Otherwise 7.5 mg every Sat, Mayela, Sat; 5 mg all other days Next INR check: 01/09/2024 Repeat PT/INR in 6 week(s) Weekly dose: decreased I spent a total of 10-19 minutes (exact time 13 mins) on the date of service in preparation, delivery, and documentation of the care provided to Debbie Jackson excluding any time spent in the performance of separately billed services or time spent by another provider/QHP. Daniel Gleason RPh, CACP, CDE Clinical Pharmacist Med[facility] 11/28/2023 1:22 PM documented in this encounter Plan of Treatment Upcoming Encounters Date Type Department Care Team (Late st Contact Info) Description 01/09/2024 1:00 PM EDT Office Visit General Internal Medicine [facility] [address] [facility] [place] [address] Alex Crisostomo MD [address] [facility] [place] [address] 01/09/2024 1:50 PM EDT Anticoagulation Pharmacy, [facility] [address] [facility] [place] [address] Pharmacist1, [facility] 200 [facility] [place] [address] 04/17/2024 4:00 PM EST Office Visit Cardiology, [facility] [address] [place] [address] Kane Swain MD [address] [place] [address] 07/07/2024 12:00 PM EDT Office Visit Pulmonary Medicine, [facility] [place] [address] Polo Perla MD [address] [facility] [place] [address] 09/07/2024 3:00 PM EDT Office Visit Nephrology, [facility] [address] [facility] [place] [address] [place] MD [address] [place] [address] 09/14/2024 1:00 PM EDT Imaging Radiology [facility] [address] [place] [address] Scheduled Procedures Name Priority Associated Diagnoses Date/Ti me COLONOSCOPY FLEXIBLE PROXIMA L DIAGNOSTIC Recall Encounter for screening colonoscopy Health Maintenance Due Date Last Done Comments Cologuard 1994 Fecal Occult Blood Test 1994 Sigmoidoscopy 1994 DTap/Tdap Vaccines (2 - Td or Tdap) 12/09/2017 12/10/2007 Adult Wellness Visit 08/03/2021 08/03/2020 Albumin/Creatinine Ratio 09/22/2023 023, 11/09/2021, 04/26/2021, Additional history exists CKD HGB USE SMARTSET 51003 09/22/202309/21, 11/09/2021, 11/09/2021, Additional history exists COVID-19 Vaccine ( season) 2023 Influenza Vaccine (FLU shot) (#1) 2023 11/13/2019, 12/11/2018, 12/25/2017, Additional history exists Mammogram 11/30/2023 11/29/2022, 11/16, 11/28/2021, Additional history exists Depression Monitoring 12/06/2023 12/05/2022 CKD PHOS USE SMARTSET 32347 12/08/202311/17, 11/09/2021, 10/18/2020, Additional history exists GFR 12/19/2023 06/19/2023, 11/17, 09/21/2022, Additional history exists TSH 06/18/2024 06/19/2023, 11/17, 11/09/2021, Additional history exists DXA Scan 08/23/2025 08/23/2020, [...] this encounter Medical Devices Implanted Type Area Chest Painting Leader Device Identifier Shelf Expiration Date Model / Serial / Lot Mesh 10 X 14 [id number] - [id number] Implanted:Qty: 1 on 12/19/2009 at [facility] N/A: Pelvis [employer] 08/16/2014 [id number] / / [id number] documented as of this encounter Procedures Procedure Name Priority Date/Time Associated Diagnosis Comments INR FINGERSTICK, POINT OF CARE STAT 11/28/2023 1:18 PM EDT Paroxysmal atrial fibrillation (HCC) documented in this encounter Results * INR FINGERSTICK, POINT OF CARE (11/28/2023 1:18 PM EDT) Fingerstick INR 3.4 INR 1:20 PM EDT LAB[facility]ORY [place] [facility] Blood 11/28/2023 1:18 PM EDT 11/28/2023 1:20 PM EDT Narrative [facility] - 11/28/2023 1:20 PM EDT Therapeutic ranges for non-operative patients: Prophylaxsis/treatment of DVT: (Range:2.0-3.0) Treatment of pulmonary embolism:(Range:2.0-3.0) Prevention of systemic embolism from: -tissue heart valves -acute myocardial infarction -valvular heart disease -atrial fibrillation (Range: 2.0-3.0) Mechanical prosthetic valves: (Range: 2.5-3.5) Farrukh Cartagena [facility] LAB POINT O F CARE TEST DOCKED DEVICE UNSOLICITED RESULTS [facility] [address] [address] documented in this encounter Visit Diagnoses Diagnosis Anticoagulation management encounter- Primary Encounter for therapeutic drug monitoring Paroxysmal atrial fibrillation (HCC) Atrial fibrillation Patent foramen ovale Ostium secundum [...] Advance Directives occurred with: Patient Care Teams Color Control Supervisor Relationship Specialty Start Date End Date Alex Crisostomo [facility] [address] [facility] [address] PCP - General Internal Medicine 03/07/21 documented as of this encounter
--- OUTSIDE RECORDS SUMMARY | 2024-02-06 21:03 | External Medical Summary | Summary of Care ---
Author Name Unknown Organization [facility] Address [address] [place] [address] Phone [phone] Care Team Providers Care Digital Analytics Manager Name Role Phone Alex Ulloa MD Primary Care Provider + Reason for Visit * Reason Comments eRx-Medication Refill Encounter Details Date Type Department Care Team (Late st Contact Info) Description 11/04/2023 Refill General Internal Medicine [facility] [address] [place] [address] Alex Ulloa MD 200 [facility] [place] [address] Allergies Active Allergy Reactions Criticality Noted Date Comments Propoxyphene N-Acetaminophen Other (Please comment) 06/01/2008 Fretfull sleep Hydromorphone Hcl Psych complications 4 hallucinations Iodinated Contrast Media Edema airway High 02/13/2011 Levofloxacin 02/21/2016 Oxycodone-Acetaminophen 01/30/2011 Hydrocodone-Acetaminoph en 01/30/2011 Azithromycin Dihydrate 12/20/2008 documented as of this encounter (statuses as of 11/04/2023) Medications Medication Sig Dispensed Refills Start Date [...] OTHER DAY 45 Tablet 3 4 Active Citalopram Hydrobromide 20 MG Oral Tablet (CeleXA)Indication s:Major depressive disorder, recurrent episode, moderate (HCC) TAKE 1 TABLET BY MOUTH EVERY MORNING 90 Tablet 1 4 Active Metoprolol Succinate ER 25 MG Oral Tablet Extended Release 24 Hour (toPROL XL)Indications:Par oxysmal atrial fibrillation (HCC) Take 0.5 Tablets by mouth in the morning. 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 TAKE ONE [...] ONCE DAILY 90 Tablet 2 4 Active Levothyroxine Sodium 100 MCG Oral Tablet (Levoxyl) TAKE 1 TABLET BY MOUTH ONCE DAILY 90 Tablet 2 3 11/04/19 24 Discontinued documented as of this encounter (statuses as of 11/04/2023) Active Problems Problem Noted Date Diagnosed Date [...] foramen ovale 02/08/2009 Anticoagulation management encounter 02/08/2009 senior living current use of anticoagulant therapy 1 04/10/2008 Female stress incontinence 10/28/2008 History of breast cancer 04/09/2008 Overview: left breast SPINAL STENOSIS-LUMBAR 07/02/2005 documented as of this encounter (statuses as of 11/04/2023) Resolved Problems Problem Noted Date Diagnosed Date [...] as of this encounter (statuses as of 11/04/2023) Immunizations Name Administration Dates Next Due H1N1 2009 Influenza, IM 04/15/2009 Pneumococcal Conjugate Vacc, 13 Valent (Prevnar) 06/27/2016 Pneumococcal Polysaccharide PPV23 (Pneumovax) 03/15/2015 Seasonal Influenza, PF, 6 M & above, IM , (FluLaval or Fluzone) 12/25/2017 Seasonal Influenza, Quadriva lent, No Preserve, IM 12/04/2016,01/10/2016,01/05/2015 Seasonal Influenza, Split, I IV3, With Preserve, Inj 12/31/2013,01/08/2013,11/26/2011,12/04,01/05/2010,03/10/2009 Seasonal Influenza, Trivalen t, Adjuvanted, 65+ yrs 11/13/2019,12/11/2018 TDAP, Age 7 and older, IM [...] encounter Miscellaneous Notes * Telephone Encounter - Angelique Lorenzana [facility] - 11/04/2023 9:20 PM EDTSigned Prescriptions: Disp Refills Levothyroxine Sodium 100 MCG Oral Tablet (*90 Tab*2 Sig: TAKE 1 TABLET BY MOUTH ONCE DAILYAuthorizing Provider: ALEX ULLOA User: ANGELIQUE LORENZANA documented in this encounter Plan of Treatment Upcoming Encounters Date Type Department Care Team (Late st Contact Info) Description 11/28/2023 1:20 PM EDT Anticoagulation Pharmacy, [facility] [address] [facility] [place] [address] Pharmacist1, [facility] [address] [facility] [place] [address] 01/09/2024 1:00 PM EDT Office Visit General Internal Medicine [facility] [address] [place] [address] Alex Ulloa MD [address] [facility] [place] [address] 04/17/2024 4:00 PM EST Office Visit Cardiology, [facility] [address] [place] [address] Kane Swain MD 132 [place] [address] 07/07/2024 12:00 PM EDT Office Visit Pulmonary Medicine, [facility] [address] [place] [address] Polo Perla MD [address] [place] [address] 09/07/2024 3:00 PM EDT Office Visit Nephrology, [facility] 200 [facility] [place] [address] Sierra Newton MD [address] [place] [address] 09/14/2024 1:00 PM EDT Imaging Radiology [facility] [address] [place] [address] Scheduled Procedures Name Priority Associated Diagnoses Date/Ti me COLONOSCOPY FLEXIBLE PROXIMA L DIAGNOSTIC Recall Encounter for screening colonoscopy Health Maintenance Due Date Last Done Comments Cologuard 1994 Fecal Occult Blood Test 1994 Sigmoidoscopy 1994 DTaP,Tdap,and Td Vaccines (2 - Td or Tdap) 12/09/2017 12/10/2007 Adult Wellness Visit 08/03/2021 08/03/2020 COVID-19 Vaccine ( - season) 2022 Albumin/Creatinine Ratio 09/22/2023 023, 11/09/2021, 04/26/2021, Additional history exists CKD HGB USE SMARTSET 97317 09/22/202309/21, 11/09/2021, 11/09/2021, Additional history exists Influenza Vaccine (FLU shot) (#1) 2023 11/13/2019, 12/11/2018, 12/25/2017, Additional history exists Mammogram 11/30/2023 11/29/2022, 11/16, 11/28/2021, Additional history exists Depression Monitoring 12/06/2023 12/05/2022 CKD PHOS USE SMARTSET 58446 12/08/202311/17, 11/09/2021, 10/18/2020, Additional history exists GFR [...] this encounter Medical Devices Implanted Type Area Cdl A Driver Device Identifier Shelf Expiration Date Model / Serial / Lot Mesh 10 X 14 [id number] - [id number] Implanted:Qty: 1 on 12/19/2009 at OR [facility] N/A: Pelvis [employer] 08/16/2014 [id number] / / [id number] documented as of this encounter Advance Directives * Full Code (Latest Code Status on File) Date Activated Date Inactivated Comments 12/19/2009 3:59 PM 12/21/2009 4:23 PM This order r eflects the patients wishes and were consensually agreed upon. Question Answer Comments Discussion of Advance Directives occurred with: Patient Care Teams Digital Analytics Manager Relationship Specialty Start Date End Date Alex Ulloa MD 200 [facility] [place] [address] PCP - General Internal Medicine 03/07/21 documented as of this encounter
--- OUTSIDE RECORDS SUMMARY | 2024-02-06 21:03 | External Medical Summary ---
Author Name Unknown Address Unknown Organization [id number]:[facility] [place] [address] [place] [address] Laboratory Report Ordering Provider Test Date Status ARTEMIO CHAVEZ 01/10/2024 14:42:11 Final Observation Date Value Abnormality Reference (Units ) Status TSH 01/10/2024 14:42:11 2.49 0.27-4.20 (uIU/mL) Final Performing Location [facility] [address] [facility] [address]
--- OUTSIDE RECORDS SUMMARY | 2024-02-06 21:03 | External Medical Summary | Summary of Care ---
Author Name Unknown Organization [facility] Address [address] [place] [address] Phone [phone] Care Team Providers Care Event Marketing Intern Name Role Phone Alex Crisostomo MD Primary Care Provider + Reason for Visit * Reason Comments Dosage Adjustment In Person (Anticoag Cl inic) Encounter Details Date Type Department Care Team (Latest Contact Info) Description 11/01/2023 1:30 PM EDT Anticoagulation Pharmacy, [facility] [address] [place] [address] Pharmacist1, [facility] [address] [place] [address] Anticoagulation management encounter*; Paroxysmal atrial fibrillation (HCC); Patent foramen ovale; History of pulmonary embolism Allergies Active Allergy Reactions Criticality Noted Date Comments Propoxyphene N-Acetaminophen Other (Please comment) 06/01/2008 Fretfull sleep Hydromorphone Hcl Psych complications 4 hallucinations Iodinated Contrast Media Edema airway High 02/13/2011 Levofloxacin 02/21/2016 Oxycodone-Acetaminophen 01/30/2011 Hydrocodone-Acetaminoph en 01/30/2011 Azithromycin Dihydrate 12/20/2008 documented as of this encounter (statuses as of 11/01/2023) Medications Medication Sig Dispensed Refills Start Date [...] by mouth in the morning. 01/29/2017 Active Levothyroxine Sodium 100 MCG Oral Tablet (Levoxyl) TAKE 1 TABLET BY MOUTH ONCE DAILY 90 Tablet 2 02/02/2023 Active Rosuvastatin Calcium 5 MG Oral Tablet (Crestor) TAKE ONE TABLET BY MOUTH EVERY OTHER DAY 45 Tablet 3 03/27/2023 Active Citalopram Hydrobromide 20 MG Oral Tablet (CeleXA)Indications: Major depressive disorder, recurrent episode, moderate (HCC) TAKE 1 TABLET BY MOUTH EVERY MORNING 90 Tablet 1 05/23/2023 Active Metoprolol Succinate ER 25 MG Oral Tablet Extended Release 24 Hour (toPROL XL)Indications:Parox ysmal atrial fibrillation (HCC) Take 0.5 Tablets by mouth in the morning. 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 Active Melatonin 10 MG Oral Tablet Take 1 Tablet by mouth at bedtime. Active documented as of this encounter (statuses as of 11/01/2023) Active Problems Problem Noted Date Diagnosed Date [...] foramen ovale 02/08/2009 Anticoagulation management encounter 02/08/2009 [facility]ent[facility] current use of anticoagulant therapy 1 04/10/2008 Female stress incontinence 10/28/2008 History of breast cancer 04/09/2008 Overview: left breast SPINAL STENOSIS-LUMBAR 07/02/2005 documented as of this encounter (statuses as of 11/01/2023) Resolved Problems Problem Noted Date Diagnosed Date [...] as of this encounter (statuses as of 11/01/2023) Immunizations Name Administration Dates Next Due H1N1 [...] Description 11/28/2023 1:20 PM EDT Anticoagulation Pharmacy, [facility] [address] [place] [address] Pharmacist1, [facility] [address] [facility] [place] [address] 01/09/2024 1:00 PM EDT Office Visit General Internal Medicine [facility] [address] [place] [address] Alex Crisostomo MD [address] [facility] [place] [address] 04/17/2024 4:00 PM EST Office Visit Cardiology, [facility] [address] [place] [address] Kane Swain MD [address] [place] [address] 07/07/2024 12:00 PM EDT Office Visit Pulmonary Medicine, [facility] [address] [place] [address] Pol[facility] Perla [facility] [address] [facility] [address] 09/07/2024 3:00 PM EDT Office Visit Nephrology, [facility] 200 [facility] [place] [address] Sierra Newton MD 200 [facility] [place] [address] 09/14/2024 1:00 PM EDT Imaging Radiology [facility] [place] [address] Scheduled Procedures Name Priority Associated Diagnoses Date/Ti me COLONOSCOPY FLEXIBLE PROXIMA L DIAGNOSTIC Recall Encounter for screening colonoscopy Health Maintenance Due Date Last Done Comments Cologuard 1994 Fecal Occult Blood Test 1994 Sigmoidoscopy 1994 DTaP,Tdap,and Td Vaccines (2 - Td or Tdap) 12/09/2017 12/10/2007 Adult Wellness Visit 08/03/2021 08/03/2020 COVID-19 Vaccine ( season) 2022 Albumin/Creatinine Ratio 09/22/2023 023, 11/09/2021, 04/26/2021, Additional history exists CKD HGB USE SMARTSET 21638 09/22/202309/21, 11/09/2021, 11/09/2021, Additional history exists Influenza Vaccine (FLU shot) (#1) 2023 11/13/2019, 12/11/2018, 12/25/2017, Additional history exists Mammogram 11/30/2023 11/29/2022, 11/16, 11/28/2021, Additional history exists Depression Monitoring 12/06/2023 12/05/2022 CKD PHOS USE SMARTSET 69341 12/08/202311/17, 11/09/2021, 10/18/2020, Additional history exists GFR [...] this encounter Medical Devices Implanted Type Area Balancing Machine Set Up Worker Device Identifier Shelf Expiration Date Model / Serial / Lot Mesh 10 X 14 [id number] - [id number] Implanted:Qty: 1 on 12/19/2009 at OR [facility] [place] N/A: Pelvis [employer] 08/16/2014 [id number] / / [id number] documented as of this encounter Procedures Procedure Name Priority Date/Time Associated Diagnosis Comments INR FINGERSTICK, POINT OF CARE STAT 11/01/2023 1:30 PM EDT Paroxysmal atrial fibrillation (HCC) documented in this encounter Results * INR FINGERSTICK, POINT OF CARE (11/01/2023 1:30 PM EDT) Fingerstick INR 3.9 INR 1:33 PM EDT [facility]02 Blood 11/01/2023 1:30 PM EDT 11/01/2023 1:33 PM EDT Narrative [facility]-02 - 11/01/2023 1:33 PM EDT Therapeutic ranges for non-operative patients: Prophylaxsis/treatment of DVT: (Range:2.0-3.0) Treatment of pulmonary embolism:(Range:2.0-3.0) Prevention of systemic embolism from: -tissue heart valves -acute myocardial infarction -valvular heart disease -atrial fibrillation (Range: 2.0-3.0) Mechanical prosthetic valves: (Range: 2.5-3.5) Farrukh Cartagena [facility] LAB POINT O F CARE TEST DOCKED DEVICE UNSOLICITED RESULTS [facility] 56- 200 [facility] [place] [address] documented in this encounter Visit Diagnoses Diagnosis [...] Advance Directives occurred with: Patient Care Teams Event Marketing Intern Relationship Specialty Start Date End Date Alex Crisostomo MD 200 [facility] [place] [address] PCP - General Internal Medicine 03/07/21 documented as of this encounter
--- OUTSIDE RECORDS SUMMARY | 2024-02-06 21:03 | External Medical Summary ---
Author Name Unknown Address Unknown Organization [id number]:[facility] [place] [address] Laboratory Report Ordering Provider Test Date Status ARTEMIO CHAVEZ 01/10/2024 14:42:11 Final Observation Date Value Abnormality Reference (Units ) Status WBC, Total 01/10/2024 14:42:11 6.17 4.00-10.8 0 (K/uL) Final RBC 01/10/2024 14:42:11 4.60 3.85-5.15 (M/uL) Final Hemoglobin 01/10/2024 14:42:11 14.0 12.0-15.3 (g/dL) Final HCT 01/10/2024 14:42:11 43.3 36.0-45.2 (%) Final MCV 01/10/2024 14:42:11 94.1 81.5-97.5 (fL) Final MCH 01/10/2024 14:42:11 30.4 27.0-34.0 (pg) Final MCHC 01/10/2024 14:42:11 32.3 32.0-36.0 (g/dL) Final RDW 01/10/2024 14:42:11 15.4 11.5-15.5 (%) Final Platelets 01/10/2024 14:42:11 214 140-400 (K /uL) Final MPV 01/10/2024 14:42:11 9.3 6.6-11.1 ( fL) Final Performing Location [facility] [place] [address]
--- OUTSIDE RECORDS SUMMARY | 2024-02-06 21:03 | External Medical Summary ---
Author Name Unknown Address Unknown Organization K09:[facility] [place] [address] Laboratory Report Ordering Provider Test Date Status ARTEMIO CHAVEZ 01/10/2024 14:42:11 Final Observation Date Value Abnormality Reference (Units ) Status SYNC LEUKOCYTES IN BLOOD BY AUTOMATED COUNT 01/10/2024 14:42:11 6.17 4.00-10.80 (K/uL) Final Segs 01/10/2024 14:42:11 52.3 40.0-75.0 (%) Final Lymphs % 01/10/2024 14:42:11 33.7 18.0-42.0 (%) Final Monos 01/10/2024 14:42:11 9.6 1.0-11.0 (%) Final Eosinophils 01/10/2024 14:42:11 4.1 0.0-6.0 (%) Final Basos 01/10/2024 14:42:11 0.3 0.0-2.0 (%) Final Absolute Segs 01/10/2024 14:42:11 3.23 1.80-7.70 (K/uL) Final Lymphs, absolute 01/10/2024 14:42:11 2.08 1.00-4.80 (K/ul) Final Monos, Abs 01/10/2024 14:42:11 0.59 0.00-1.10 (K/uL) Final Eos, Abs 01/10/2024 14:42:11 0.25 0.00-0.70 (K/uL) Final Basos, Abs 01/10/2024 14:42:11 0.02 0.00-0.20 (K/uL) Final Performing Location [facility] [place] [address]
--- OUTSIDE RECORDS SUMMARY | 2024-02-06 21:03 | External Medical Summary ---
Author Name Unknown Address Unknown Organization K09:[facility] [place] [address] Laboratory Report Ordering Provider Test Date Status HELENE PENA 01/09/2024 14:02:16 Final Therapeutic ranges for non-o perative patients:
Prophylaxsis/treatment of DVT: (Range:2.0-3.0)
Treatment of pulmonary embolism:(Range:2.0-3.0)
Prevention of systemic embolism from:
-tissue heart valves
-acute myocardial infarction
-valvular heart disease
-atrial fibrillation
(Range: 2.0-3.0)
Mechanical prosthetic valves: (Range: 2.5-3.5) Observation Date Value Abnormality Reference (Units ) Status INR in Capillary blood by Coagulation assay 01/09/2024 14:02:16 2.2 (INR) Final Performing Location [facility] [place] [address]
--- OUTSIDE RECORDS SUMMARY | 2024-02-06 21:03 | External Medical Summary ---
Author Name Unknown Address Unknown Organization K09:[facility] [place] [address] Laboratory Report Ordering Provider Test Date Status HELENE PENA 11/28/2023 13:18:52 Final Therapeutic ranges for non-o perative patients:
Prophylaxsis/treatment of DVT: (Range:2.0-3.0)
Treatment of pulmonary embolism:(Range:2.0-3.0)
Prevention of systemic embolism from:
-tissue heart valves
-acute myocardial infarction
-valvular heart disease
-atrial fibrillation
(Range: 2.0-3.0)
Mechanical prosthetic valves: (Range: 2.5-3.5) Observation Date Value Abnormality Reference (Units ) Status INR in Capillary blood by Coagulation assay 11/28/2023 13:18:52 3.4 (INR) Final Performing Location [facility] [place] [address]
--- OUTSIDE RECORDS SUMMARY | 2024-02-06 21:03 | External Medical Summary ---
Author Name Unknown Address Unknown Organization K01:[facility] [place] [address] [facility] [address] Laboratory Report Ordering Provider Test Date Status ARTEMIO CHAVEZ 01/10/2024 14:42:11 Final Observation Date Value Abnormality Reference (Units ) Status Triglyceride 01/10/2024 14:42:11 211 Above high normal <=174 (mg/dL) Final Triglyceride Reference Range s (mg/dL):
<150 Acceptable
150-174 Borderline high
175-499 High
>=500 Very high Cholesterol 01/10/2024 14:42:11 213 Above high normal <200 (mg/dL) Final Total Cholesterol Reference Ranges (mg/dL):
<200 Desirable
200-239 Borderline high
>=240 High HDL 01/10/2024 14:42:11 49 Below low normal >49 (mg/dL) Final HDL Cholesterol Reference Ra nges (mg/dL):
>=60 High (Desirable)
<50 Low (Undesirable) For Females
<40 Low (Undesirable) For Males NON-HDL CHOLESTEROL 01/10/2024 14:42:11 164 Above high normal <=159 (mg/dL) Final Non-HDL Cholesterol Referenc e Range (mg/dL):
<100 Target level for high risk ASCVD patient
<130 Optimal for general population
130-159 Near optimal for general population
160-189 Borderline High
190-219 High
>=220 Very High LDL, (calculated) 01/10/2024 14:42:11 122 <= 129 (mg/dL) Final LDL Cholesterol Reference Ra nges (mg/dL):
<70 Target level for high risk ASCVD patient
<100 Optimal for general population
100-129 Near optimal for general population
130-159 Borderline high
160-189 High
>=190 Very high Performing Location [facility] [place] [address] [facility] [address]
--- OUTSIDE RECORDS SUMMARY | 2024-02-06 21:03 | External Medical Summary | Summary of Care ---
Author Name Unknown Organization [facility] Address [address] [place] [address] Phone [phone] Care Team Providers Care Neurology Physician Name Role Phone Alex Crisostomo MD Primary Care Provider + Reason for Visit * Reason Comments Appointment No Show Encounter Details Date Type Department Care Team (Latest Contact Info) Description 10/28/2023 6:10 PM EDT Anticoagulation Pharmacy, [facility] [address] [facility] [place] [id number] Pharmacist1, [facility] 200 [facility] [place] [id number] Anticoagulation management encounter* Allergies Active Allergy Reactions Criticality Noted Date Comments Propoxyphene N-Acetaminophen Other (Please comment) 06/01/2008 Fretfull sleep Hydromorphone Hcl Psych complications 4 hallucinations Iodinated Contrast Media Edema airway High 02/13/2011 Levofloxacin 02/21/2016 Oxycodone-Acetaminophen 01/30/2011 Hydrocodone-Acetaminoph en 01/30/2011 Azithromycin Dihydrate 12/20/2008 documented as of this encounter (statuses as of 10/28/2023) Medications Medication Sig Dispensed Refills Start Date [...] Active Additional Information Patient taking differently:12.5 mg OralQPM-1999, Reported on 09/18/2023 Warfarin Sodium 5 MG Oral Tablet (Jantoven)Indication s:detention current use of anticoagulant therapy TAKE ONE AND A HALF TABLETS BY MOUTH EVERY DAY 135 Tablet 3 06/27/2023 Active Naproxen Sodium 220 MG Oral Tablet (Aleve) Take 1 Tablet by mouth every 12 hours as needed. Active Melatonin 10 MG Oral Tablet Take 1 Tablet by mouth at bedtime. 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 1 04/10/2008 Female stress incontinence 10/28/2008 History of breast cancer 04/09/2008 Overview: left breast SPINAL STENOSIS-LUMBAR 07/02/2005 documented as of this encounter (statuses as of 10/28/2023) Resolved Problems Problem Noted Date Diagnosed Date [...] as of this encounter (statuses as of 10/28/2023) Immunizations Name Administration Dates Next Due H1N1 2008 Influenza, IM 04/15/2009 Pneumococcal Conjugate Vacc, 13 [...] as of this encounter Progress Notes * Sondra Fontanez PHARM Tech - 10/28/2023 8:54 AM EDT Patient Phone Numbers Spoke with patient to schedule [facility] appointment for coag management. Appointment scheduled as notedbelow. 11/01/2023 Thank you, Sondra Fontanez [facility] System Archive Analyst II [facility] 10/28/2023,8:54 AM documented in this encounter Plan of Treatment Upcoming Encounters Date Type Department Care Team (Late st Contact Info) Description 11/01/2023 1:30 PM EDT Anticoagulation Pharmacy, [facility] [address] [place] [address] Pharmacist1, [facility] [address] [place] [address] 01/09/2024 1:00 PM EDT Office Visit General Internal Medicine [facility] [address] [place] [address] Alex Crisostomo MD 200 [facility] [place] [address] 04/17/2024 4:00 PM EST Office Visit Cardiology, [facility] [address] [place] [address] Kane Swain MD [address] [place] [address] 07/07/2024 12:00 PM EDT Office Visit Pulmonary Medicine, [facility] [address] [place] [address] Polo Perla MD [address] [place] [address] 09/07/2024 3:00 PM EDT Office Visit Nephrology, [facility] [address] [facility] [place] [address] Sierra Newton MD [address] [facility] [place] [address] 09/14/2024 1:00 PM EDT Imaging Radiology [facility] [address] [place] [address] Scheduled Procedures Name Priority Associated Diagnoses Date/Ti [...] Additional history exists CKD HGB USE SMARTSET 42221 09/22/202309/21, 11/09/2021, 11/09/2021, Additional history exists Influenza Vaccine (FLU shot) (#1) 2023 11/13/2019, 12/11/2018, 12/25/2017, Additional history exists Mammogram 11/30/2023 11/29/2022, 11/16, 11/28/2021, Additional history exists Depression Monitoring 12/06/2023 12/05/2022 CKD PHOS USE SMARTSET 52037 12/08/202311/17, 11/09/2021, 10/18/2020, Additional history exists GFR [...] this encounter Medical Devices Implanted Type Area Machine Packer Device Identifier Shelf Expiration Date Model / Serial / Lot Mesh 10 X 14 [id number] - [id number] Implanted:Qty: 1 on 12/19/2009 at OR [facility] N/A: Pelvis [employer] 08/16/2014 [id number] / / [id number] documented as of this encounter Visit Diagnoses Diagnosis Anticoagulation management encounter- Primary Encounter for therapeutic drug monitoring documented in this encounter Advance Directives * Full Code (Latest Code Status on File) Date Activated Date Inactivated Comments 12/19/2009 3:59 PM 12/21/2009 4:23 PM This order r eflects the patients wishes and were consensually agreed upon. Question Answer Comments Discussion of Advance Directives occurred with: Patient Care Teams Neurology Physician Relationship Specialty Start Date End Date Alex Crisostomo MD [address] [facility] [place] [address] PCP - General Internal Medicine 03/07/21 documented as of this encounter
--- OUTSIDE RECORDS SUMMARY | 2024-02-06 21:03 | External Medical Summary | Summary of Care ---
Author Name Unknown Organization [facility] Address [address] [place] [address] Phone [phone] Care Team Providers Care Implementation Director Name Role Phone Alex Ulloa MD Primary Care Provider + Reason for Visit * Reason Comments eRx-Medication Refill Encounter Details Date Type Department Care Team (Late st Contact Info) Description 11/19/2023 Refill General Internal Medicine [facility] 200 [place] [address] Alex Ulloa MD [address] [place] [address] Major depressive disorder, recurrent episode, moderate (HCC) Allergies Active Allergy Reactions Criticality Noted Date Comments Propoxyphene N-Acetaminophen Other (Please comment) 06/01/2008 Fretfull sleep Hydromorphone Hcl Psych complications 4 hallucinations Iodinated Contrast Media Edema airway High 02/13/2011 Levofloxacin 02/21/2016 Oxycodone-Acetaminophen 01/30/2011 Hydrocodone-Acetaminoph en 01/30/2011 Azithromycin Dihydrate 12/20/2008 documented as of this encounter (statuses as of 11/20/2023) Medications Medication Sig Dispensed Refills Start Date [...] OTHER DAY 45 Tablet 3 4 Active Metoprolol Succinate ER 25 MG Oral Tablet Extended Release 24 Hour (toPROL XL)Indications:Par oxysmal atrial fibrillation (HCC) Take 0.5 Tablets by mouth in the morning. 45 Tablet 2 4 Active Additional Information Patient taking differently:12.5 mg OralQ-1999, Reported on 09/18/2023 Warfarin Sodium 5 MG Oral Tablet (Jantoven)Indicati ons:MCFP current use of anticoagulant therapy TAKE ONE [...] EVERY MORNING 90 Tablet 1 4 Active Citalopram Hydrobromide 20 MG Oral Tablet (CeleXA)Indication s:Major depressive disorder, recurrent episode, moderate (HCC) TAKE 1 TABLET BY MOUTH EVERY MORNING 90 Tablet 1 4 11/20/19 24 Discontinued documented as of this encounter (statuses as of 11/20/2023) Active Problems Problem Noted Date Diagnosed Date [...] foramen ovale 02/08/2009 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 1 04/10/2008 Female stress incontinence 10/28/2008 History of breast cancer 04/09/2008 Overview: left breast SPINAL STENOSIS-LUMBAR 07/02/2005 documented as of this encounter (statuses as of 11/20/2023) Resolved Problems Problem Noted Date Diagnosed Date [...] as of this encounter (statuses as of 11/20/2023) Immunizations Name Administration Dates Next Due H1N1 [...] encounter Miscellaneous Notes * Telephone Encounter - Samantha Larson [facility] - 11/20/2023 3:39 PM EDTSigned Prescriptions: Disp Refills Citalopram Hydrobromide 20 MG Oral Tablet *90 Tab*1 Sig: TAKE 1 TABLET BY MOUTH EVERY MORNINGAuthorizing Provider: ALEX ULLOA User: SAMANTHA LARSON documented in this encounter Plan of Treatment Upcoming Encounters Date Type Department Care Team (Late st Contact Info) Description 11/28/2023 1:20 PM EDT Anticoagulation Pharmacy, [facility] [address] [facility] [place] [address] Pharmacist1, [facility] [address] [facility] [place] [place] [address] 01/09/2024 1:00 PM EDT Office Visit General Internal Medicine [facility] [address] [facility] [place] [address] Alex Ulloa MD [address] [facility] [place] [address] 04/17/2024 4:00 PM EST Office Visit Cardiology, [facility] [address] [place] [address] Kane Swain MD [address] [facility] [place] [address] 07/07/2024 12:00 PM EDT Office Visit Pulmonary Medicine, [facility] [address] [place] [address] Polo Perla MD [address] [place] [address] 09/07/2024 3:00 PM EDT Office Visit Nephrology, [facility] [address] [facility] [place] [address] Sierra Newton MD 200 [facility] [place] [address] 09/14/2024 1:00 PM EDT Imaging Radiology [facility] [address] [place] [address] Scheduled Procedures Name Priority Associated Diagnoses Date/Ti me COLONOSCOPY FLEXIBLE PROXIMA L DIAGNOSTIC Recall Encounter for screening colonoscopy Health Maintenance Due Date Last Done Comments Cologuard 1994 Fecal Occult Blood Test 1994 Sigmoidoscopy 1994 DTap/Tdap Vaccines (2 - Td or Tdap) 12/09/2017 12/10/2007 Adult Wellness Visit 08/03/2021 08/03/2020 Albumin/Creatinine Ratio 09/22/2023 023, 11/09/2021, 04/26/2021, Additional history exists CKD HGB USE SMARTSET 13505 09/22/202309/21, 11/09/2021, 11/09/2021, Additional history exists COVID-19 Vaccine ( season) 2023 Influenza Vaccine (FLU shot) (#1) 2023 11/13/2019, 12/11/2018, 12/25/2017, Additional history exists Mammogram 11/30/2023 11/29/2022, 11/16, 11/28/2021, Additional history exists Depression Monitoring 12/06/2023 12/05/2022 CKD PHOS USE SMARTSET 76062 12/08/202311/17, 11/09/2021, 10/18/2020, Additional history exists GFR [...] this encounter Medical Devices Implanted Type Area Official Court Interpreter Device Identifier Shelf Expiration Date Model / Serial / Lot Mesh 10 X 14 [id number] - [id number] Implanted:Qty: 1 on 12/19/2009 at [place] [facility] [place] N/A: Pelvis [employer] 08/16/2014 [id number] / / [id number] documented as of this encounter Visit Diagnoses Diagnosis Major depressive disorder, recurrent episode, moderate (HCC) Major depressive disorder, recurrent episode, moderate documented in this encounter Advance Directives * Full Code (Latest Code Status on File) Date Activated Date Inactivated Comments 12/19/2009 3:59 PM 12/21/2009 4:23 PM This order r eflects the patients wishes and were consensually agreed upon. Question Answer Comments Discussion of Advance Directives occurred with: Patient Care Teams Implementation Director Relationship Specialty Start Date End Date Alex Ulloa MD [address] [place] [address] PCP - General Internal Medicine 03/07/21 documented as of this encounter
--- OUTSIDE RECORDS SUMMARY | 2024-02-06 21:03 | External Medical Summary ---
Author Name Unknown Address Unknown Organization K09:[facility] [place] [address] Laboratory Report Ordering Provider Test Date Status HELENE PENA 11/01/2023 13:30:26 Final Therapeutic ranges for non-o perative patients:
Prophylaxsis/treatment of DVT: (Range:2.0-3.0)
Treatment of pulmonary embolism:(Range:2.0-3.0)
Prevention of systemic embolism from:
-tissue heart valves
-acute myocardial infarction
-valvular heart disease
-atrial fibrillation
(Range: 2.0-3.0)
Mechanical prosthetic valves: (Range: 2.5-3.5) Observation Date Value Abnormality Reference (Units ) Status INR in Capillary blood by Coagulation assay 11/01/2023 13:30:26 3.9 (INR) Final Performing Location [facility] [place] [address]
--- OUTSIDE RECORDS SUMMARY | 2024-02-06 21:03 | External Medical Summary | Summary of Care ---
Author Name Unknown Organization [facility] Address [address] [place] [address] Phone [phone] Care Team Providers Care Ordnance Keeper Name Role Phone Alex Crisostomo MD Primary Care Provider + Reason for Visit * Reason Comments Follow Up 6 month follow up. Jose Luis cortez has concerns with weight gain and thinks it may be related to a new tea she has been trying. Also has concerns about lack of sleep at night.Reports her neuropathy has been waking her up in the middle of the night, have becoming extra cold. This occurred last night. Encounter Details Date Type Department Care Team (Late st Contact Info) Description 01/09/2024 1:00 PM EDT Office Visit General Internal Medicine [facility] [address] [place] [address] Alex Crisostomo MD [address] [place] [address] Neuropathy*; Chronic insomnia; Pulmonary sarcoidosis (HCC); Paroxysmal atrial fibrillation (HCC); Hypothyroidism due to acquired atrophy of thyroid; Stage 3a chronic kidney disease (HCC); H/O thoracic aortic aneurysm repair; Major depressive disorder, recurrent episode, moderate (HCC); Dyslipidemia, goal LDL below 70; Encounter for screening mammogram for malignant neoplasm of breast Allergies Active Allergy Reactions Criticality Noted Date [...] Warfarin Sodium 5 MG Oral Tablet (Jantoven)Indicatio ns:remote computer terminal operator current use of anticoagulant therapy TAKE ONE [...] before bedtime. 60 Capsule 1 01/09/2024 Active Metoprolol Succinate ER 25 MG Oral Tablet Extended Release 24 Hour (toPROL XL)Indications:Paro xysmal atrial fibrillation (HCC) Take 0.5 Tablets by mouth in the morning. 45 Tablet 2 06/19/2023 01/09/2024 Discontinue d(Refill) Tylenol PM Extra Strength 500-25 MG Oral [...] foramen ovale 02/08/2009 Anticoagulation management encounter 02/08/2009 remote computer terminal operator current use of anticoagulant therapy 1 [...] ICD-10 update of inactive term Follow-up examination, [facility] wing other surgery 12/19/2009 01/29/2017 Thoracic aortic [...] on file documented as of this encounter Last Filed Vital Signs Vital Sign Reading Time Taken Comments Blood Pressure 116/64 01/09/2024 1:11 PM EDT Pulse 87 01/09/2024 1:11 PM EDT Temperature 36.9 C (98.4 F) 01/09/2024 1:11 PM ED T Respiratory Rate - - Oxygen Saturation 95% 01/09/2024 1:11 PM EDT Inhaled Oxygen Concentration - - Weight 91.4 kg (201 lb 8 oz) 01/09/2024 1:11 PM EDT Height - - Body Mass Index 31.56 07/01/2023 2:47 PM EDT documented in this encounter Progress Notes * Alex Crisostomo MD - 01/09/2024 1:35 PM EDT Chief Complaint Patient presents with Follow Up 6 month follow up. Patient has concerns with weight gain and thinks it may be related to a new tea she has been trying. Also has concerns about lack of sleep at night. Reports her neuropathy has been waking her up in the middle of the night, have becoming extra cold.This occurred last night. SUBJECTIVE: Debbie Jackson is a 73 year old female with PMH as below who presents for follow up insomnia, hypothyroidism, ckd 3, depression, atrial fib. No cp,or change in breathing. Mood is stable, biggest issue is insomnia, can't sleep well, feels triggered by "neuropathy" she has had chronically for years, feet tingle/cold at night. Gabapentin caused fatigued, wants to try Lyrica. Taking coumadin for atrial fib, sees cardiology. Weight is up despite diet compliance. Patient Active Problem List Diagnosis SPINAL STENOSIS-LUMBAR History of breast cancer Female stress incontinence Patent foramen ovale Anticoagulation management encounter remote computer terminal operator current use of anticoagulant therapy Cerebrovascular disease, arteriosclerotic, post-stroke Pulmonary sarcoidosis (HCC) Lymphadenopathy Dyslipidemia, goal LDL below 70 Migraine Neuropathy Paroxysmal atrial fibrillation (HCC) Vocal cord paralysis, unilateral complete Cervical spinal stenosis Hx of melanoma of skin History of basal cell carcinoma Insomnia History of pulmonary embolism Hypothyroidism due to acquired atrophy of thyroid Major depressive disorder, recurrent episode, moderate (HCC) Stage 3a chronic kidney disease (HCC) H/O thoracic aortic aneurysm repair Allergic to IV contrast History of CVA (cerebrovascular accident) Reactive airway disease with wheezing without complication AAA (abdominal aortic aneurysm) ([facility]) Primary hypercoagulable state ([facility]) Current Outpatient Medications Medication Sig Dispense Refill MULTIPLE VITAMIN PO TABS PROBIOTIC PO CAPS one cap daily ACETAMINOPHEN 500 MG PO TABS as needed. 100 Tab 0 OMEGA 3 1000 MG PO CAPS once daily (1200mg) COQ-10 200 MG PO CAPS daily ASPIR-LOW 81 MG PO TBEC one pill each day Red Yeast Rice 600 MG TABS Tablet Take 1 Tablet by mouth in the morning. Turmeric 500 MG Capsule Take 1 Capsule by mouth in the morning. Rosuvastatin Calcium 5 MG Oral Tablet (Crestor) TAKE ONE TABLET BY MOUTH EVERY OTHER DAY 45 Tablet 3 Warfarin Sodium 5 MG Oral Tablet (Jantoven) TAKE ONE AND A HALF TABLETS BY MOUTH EVERY DAY 135 Tablet 3 Naproxen Sodium 220 MG Oral Tablet (Aleve) Take 1 Tablet by mouth every 12 hours as needed. Melatonin 10 MG Oral Tablet Take 1 Tablet by mouth at bedtime. Levothyroxine Sodium 100 MCG Oral Tablet (Levoxyl) TAKE 1 TABLET BY MOUTH ONCE DAILY 90 Tablet 2 Citalopram Hydrobromide 20 MG Oral Tablet (CeleXA) TAKE 1 TABLET BY MOUTH EVERY MORNING 90 Tablet 1 Tylenol PM Extra Strength 500-25 MG Oral Tablet (diphenhydrAMINE-APAP (sleep)) Take 1 Tablet by mouth 3 times a day as needed for Itching. Metoprolol Succinate ER 25 MG Oral Tablet Extended Release 24 Hour (toPROL XL) Take 0.5 Tablets by mouth in the morning. 45 Tablet 2 Pregabalin 25 MG Oral Capsule (Lyrica) Take 1 Capsule by mouth in the morning and 1 Capsule before bedtime. 60 Capsule 1 No current facility-administered medications for this visit. Review of patient's allergies indicates: Allergen Reactions Iodinated Contrast Media Edema airway Darvocet-N [Propoxyphene N-Acetaminophen] Other (Please comment) Fretfull sleep Dilaudid [Hydromorphone Hcl] Psych complications hallucinations Levaquin [Levofloxacin] Percocet [Oxycodone-Acetaminophen] Vicodin [Hydrocodone-Acetaminophen] Zithromax [Azithromycin Dihydrate] Health Maintenance Due Topic Date Due DTap/Tdap Vaccines (2 - Td or Tdap) 12/09/2017 Adult Wellness Visit 08/03/2021 Albumin/Creatinine Ratio 09/22/2023 CKD HGB USE SMARTSET 51981 09/22/2023 Influenza Vaccine (FLU shot) (1) 11/17/2023 Mammogram 11/30/2023 CKD PHOS USE SMARTSET 04012 12/08/2023 GFR 12/19/2023 ROS: CONSTITUTIONAL: No fevers, sweats, or chills PULMONARY: No recent change in breathing CARDIOVASCULAR: No chest pain, No orthopnea, No paroxysmal nocturnal dyspnea, No edema, No palpitations, and No syncope GASTROINTESTINAL: No abdominal pain, No change in bowel habits, No significant heartburn, No significant change in appetite, No nausea, vomiting, diarrhea, or constipation, No hematemesis, No blood in stools or black tarry stools, No abdominal bloating or early satiety, and No dysphagia ALL OTHER SYSTEMS NEGATIVE I reviewed social, PMH, PSH, and family history and updated where needed. Social History Socioeconomic History Marital status: Spouse name: Not on file Number of children: Not on file Years of education: Not on file Highest education level: Not on file Occupational History Occupation: OFFICER Employer: [employer] ([place]) Comment: on medical leave Tobacco Use Smoking status: Never Smokeless tobacco: Never Vaping Use Vaping status: Never Used Substance and Sexual Activity Alcohol use: No Drug use: No Sexual activity: Not Currently Other Topics Concern Not on file Social History Narrative No pets in her home. No mold. Social Determinants of Health Financial Resource Strain: Not on file Food Insecurity: No Food Insecurity (11/04/2021) Hunger Vital Sign Worried About Running Out of Food in the Last Year: Never true Ran Out of Food in the Last Year: Never true Transportation Needs: Not on file Social Connections: Unknown (09/03/2023) Social Connections How often do you feel lonely or isolated from those around you? 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 Pulmonary nodules 10/14/2012 Pulmonary sarcoidosis (HCC) 03/02/2009 Sarcoidosis Spinal stenosis of lumbar region without neurogenic claudication Stroke (HCC) 01/2009 Past Surgical History: Procedure Laterality Date ANGIOPLASTY, AORTA, OPEN COLONOSCOPY, DIAGNOSTIC (RECTUM) 08/08/2016 hyperplastic polyp, repeat 10 yrs/[facility] EGD, FLEXIBLE, DIAGNOSTIC 08/08/2016 normal bx/[facility] EGD, FLEXIBLE, W/BIOPSY 02/10/08 esophageal reflux EGD, FLEXIBLE,W/US GUIDE FNA TO JEJUNUM 01/27/09 await cytology LAP;URETHRAL SUSPENSION 12/19/2009 ROBOTIC LAPOROSCOPIC SURGICAL URETHRAL SUSPENSION FOR STRESS INCONTINENCE performed by DINA ORR at [facility] LAPAROSCOPY,SURG,COLPOPEXY 12/19/2009 ROBOTIC LAPAROSCOPY SURGICAL COLPOPEXY performed by DINA ORR at [facility] MASTECTOMY, PARTIAL 04/26/2008 PM/SLNB - Left Dr. Burch - 04/26/2008 MASTECTOMY, PARTIAL 06/08/[address] Burch MISCELLANEOUS ORDER ([facility] ONLY) 196 appy MISCELLANEOUS ORDER ([facility] ONLY) 1966 tonsilectomy and adenoids MISCELLANEOUS ORDER ([facility] ONLY) 01/19/11 right subclavian side graft and replacement of ascending aorta/ aortic arch- [facility] ( MD Dm. PHD.) MISCELLANEOUS ORDER ([facility] ONLY) 02/17/2014 Endovascular thoracic Aorta repair PARAVAGINAL DEFECT, OPEN ABDOMINAL REPAIR 12/19/2009 PARAVAGINAL DEFECT REPAIR performed by DINA ORR at [facility] REPAIR BLADDER & VAGINA, CYSTOCELE 12/19/2009 ANTERIOR COLPORRHAPHY performed by DINA ORR at [facility] REPAIR RECTUM & VAGINA, RECTOCELE 12/19/2009 POSTERIOR COLPORRHAPHY performed by DINA ORR at [facility] TEAR DUCT SYSTEM SURGERY NEC 02/01/2015 left-done in [place] US GUIDED BREAST BIOPSY 04/09/08 Left breast (IDC) at [facility] Family History Problem Relation Name Age of Onset Arthritis Mother Cancer Mother lung Diabetes Mother Ear Problems Mother Eye Problems Mother Heart Disorder Mother CHF Hypertension Mother Thyroid Disorder Mother Neurological Disorder Father dementia Hypertension Father Thyroid Disorder Father Thyroid Disorder Sister Fibromyalgia Sister Heart disease Brother No Known Problems Brother Other (CKD, ESRD, nephrolithiasis) None Other (Other) Other no family hx of AAA/thoracic aortic aneurysm OBJECTIVE: PHYSICAL EXAM: BP 116/64 | Pulse 87 | Temp 36.9 C (98.4 F) (Tympanic) | Wt 91.4 kg (201 lb 8 oz) | SpO2 95% | BMI 31.56 kg/m | BSA 2.08 m General: alert, healthy, and no distress Head: Normocephalic, No masses, lesions, or abnormalities Eye Exam: conjunctiva are pink and non-injected, sclera clear Heart: regular rate & rhythm, no murmur, no gallops, S-1 normal, and S-2 normal Lungs: normal respiratory rate and rhythm, lungs clear to auscultation Extremities: no clubbing, no cyanosis, legs well perfused Psych: normal affect, no flight of ideas or tangential thought, good eye contact, no pressured speech 09/18/23 cardiology: Very complex constellation of issues including thoracic and aortic arch aneurysm status post surgical and procedural intervention. Appears stable historically and by recent CT though formal interpretation by [facility] pending. No cardiac symptoms PLAN: Patient willing to continue current medical regimen without adjustment currently clinically stable Discussed potential for increase in lipid-lowering therapy or addition of ezetimibe Patient to remain on warfarin, aspirin 81 mg per day. Recommended discontinuing leave DISPOSITION: Continue chronic anticoagulation with warfarin return 6 months ASSESSMENT: (G62.9) Neuropathy (primary encounter diagnosis) (F51.04) Chronic insomnia (D86.0) Pulmonary sarcoidosis (HCC) (I48.0) Paroxysmal atrial fibrillation (HCC) (E03.4) Hypothyroidism due to acquired atrophy of thyroid (N18.31) Stage 3a chronic kidney disease (HCC) (Z98.890, Z86.79) H/O thoracic aortic aneurysm repair (F33.1) Major depressive disorder, recurrent episode, moderate (HCC) (E78.5) Dyslipidemia, goal LDL below 70 (Z12.31) Encounter for screening mammogram for malignant neoplasm of breast PLAN: Neuropathy (Primary) - Pregabalin 25 MG Oral Capsule (Lyrica); Take 1 Capsule by mouth in the morning and 1 Capsule before bedtime. Discussed options, referral, declines, will do trial med above, discussed higher dose, she declines, wants only 25 mg, will let me know how it goes, will monitor for side effects I have reviewed the patients controlled substance dispensing history in the Prescription Drug Monitoring Program in compliance with the [facility] regulations before prescribing a controlled substance. Chronic insomnia Discussed sleep evaul, declines Perhaps lyrica, treating neuropathy, may help Pulmonary sarcoidosis (HCC) Sees pulm Paroxysmal atrial fibrillation (HCC) - Metoprolol Succinate ER 25 MG Oral Tablet Extended Release 24 Hour (toPROL XL); Take 0.5 Tablets by mouth in the morning. - CBC WITH WBC DIFFERENTIAL; Future; Expected date: 01/09/2024 Cont f/u cardiology On coumadin Hypothyroidism due to acquired atrophy of thyroid - TSH; Future; Expected date: 01/09/2024 Cont levothyroxine Check labs soon given weight gain Stage 3a chronic kidney disease (HCC) - COMPREHENSIVE METABOLIC PANEL; Future; Expected date: 01/09/2024 - LIPID PANEL WITH DIRECT LDL IF TG IS HIGH; Future; Expected date: 01/09/2024 - ALBUMIN / CREATININE RATIO, URINE; Future; Expected date: 01/09/2024 - PHOSPHORUS; Future; Expected date: 01/09/2024 H/O thoracic aortic aneurysm repair Discussed surgery evaul, told due in 3 years from last (2025) Major depressive disorder, recurrent episode, moderate (HCC) Seems stable Cont citalopram Dyslipidemia, goal LDL below 70 Await labs Cont rosuvastatin Encounter for screening mammogram for malignant neoplasm of breast - MAMMOGRAM SCREENING ALINA BILATERAL; Future; Expected date: 01/09/2024 Follow Up: Return in about 6 months (around 07/09/2024), or if symptoms worsen or fail to improve, for Fasting Labs Soon. | For: Fasting Labs Soon Alex Crisostomo MD documented in this encounter Nursing Notes * Estee Zamudio, MED ASSIST - 01/09/2024 1:15 PM EDT Chief Complaint Patient presents with Follow Up 6 month follow up. Patient has concerns with weight gain and thinks it may be related to a new tea she has been trying. Also has concerns about lack of sleep at night. Reports her neuropathy has been waking her up in the middle of the night, have becoming extra cold.This occurred last night. Patient has been verbally educated on the need or importance of Flu Vaccine and Tdap Vaccine and has declined topic(s). documented in this encounter Plan of Treatment Upcoming Encounters Date Type Department Care Team (Late st Contact Info) Description 04/27/2024 11:00 AM EST Office Visit Cardiology, [facility] [address] [facility] [place] [address] Kane Swain MD [address] [facility] [place] [address] 07/07/2024 12:00 PM EDT Office Visit Pulmonary Medicine, [facility] [address] [facility] [place] [address] Polo Perla MD [address] [facility] [address] 09/07/2024 3:00 PM EDT Office Visit Nephrology, [facility] [address] [place] [address] Sierra Newton MD [address] [place] [address] 09/14/2024 1:00 PM EDT Imaging Radiology [facility] [address] [facility] [place] [address] 10/29/2024 2:40 PM EDT Office Visit General Internal Medicine [facility] [place] [address] [place] [address] Alex Crisostomo MD [address] [place] [id number] Scheduled Orders Name Type Priority Associated Diagnoses Orde r Schedule MAMMOGRAM SCREENING ALINA BILATERAL Medical Imaging Routine Encounter for screening mammogram for malignant neoplasm of breast Expected: 01/09/2024, Expires: 02/08/2025 COMPREHENSIVE METABOLIC PANEL Lab Routine Stage 3a chronic kidney disease (HCC) Expected: 01/09/2024 (Approximate), Expires: 01/08/2025 LIPID PANEL WITH DIRECT LDL IF TG IS HIGH Lab Routine Stage 3a chronic kidney disease (HCC) Expected: 01/09/2024, Expires: 01/08/2025 ALBUMIN / CREATININE RATIO, URINE Lab Routine Stage 3a chronic kidney disease (HCC) Expected: 01/09/2024 (Approximate), Expires: 01/08/2025 CBC WITH WBC DIFFERENTIAL Lab Routine Paroxysmal atrial fibrillation (HCC) Expected: 01/09/2024 (Approximate), Expires: 01/08/2025 PHOSPHORUS Lab Routine Stage 3a chronic kidney disease (HCC) Expected: 01/09/2024 (Approximate), Expires: 01/08/2025 TSH Lab Routine Hypothyroidism due to acquired atrophy of thyroid Expected: 01/09/2024 (Approximate), Expires: 01/08/2025 Scheduled Procedures Name Priority Associated Diagnoses Date/Ti me COLONOSCOPY FLEXIBLE PROXIMA L DIAGNOSTIC Recall Encounter for screening colonoscopy Health Maintenance Due Date Last Done Comments Cologuard 1994 Fecal Occult Blood Test 1994 Sigmoidoscopy 1994 DTap/Tdap Vaccines (2 - Td or Tdap) 12/09/2017 12/10/2007 Adult Wellness Visit 08/03/2021 08/03/2020 Albumin/Creatinine Ratio 09/22/2023 023, 11/09/2021, 04/26/2021, Additional history exists CKD HGB USE SMARTSET 18158 09/22/202309/21, 11/09/2021, 11/09/2021, Additional history exists Influenza Vaccine (FLU shot) (#1) 2023 11/13/2019, 12/11/2018, 12/25/2017, Additional history exists Mammogram 11/30/2023 11/29/2022, 11/16, 11/28/2021, Additional history exists CKD PHOS USE SMARTSET 93988 12/08/202311/17, 11/09/2021, 10/18/2020, Additional history exists GFR [...] this encounter Medical Devices Implanted Type Area Partner Integration Planner Device Identifier Shelf Expiration Date Model / Serial / Lot Mesh 10 X 14 [id number] - [id number] Implanted:Qty: 1 on 12/19/2009 at [place] [facility] [facility] [place]A: Pelvis [employer] 08/16/2014 [id number] / / [id number] documented as of this encounter Visit Diagnoses Diagnosis Neuropathy- Primary Mononeuritis of unspecified site Chronic insomnia Insomnia, unspecified Pulmonary sarcoidosis (HCC) Sarcoidosis Paroxysmal atrial fibrillation (HCC) Atrial fibrillation Hypothyroidism due to acquired atrophy of thyroid Stage 3a chronic kidney disease (HCC) H/O thoracic aortic aneurysm repair Other postprocedural status Major depressive disorder, recurrent episode, moderate (HCC) Major depressive disorder, recurrent episode, moderate Dyslipidemia, goal LDL below 70 Other and unspecified hyperlipidemia Encounter for screening mammogram for malignant neoplasm of breast Other screening mammogram documented in this encounter Advance Directives * Full Code (Latest Code Status on File) Date Activated Date Inactivated Comments 12/19/2009 3:59 PM 12/21/2009 4:23 PM This order r eflects the patients wishes and were consensually agreed upon. Question Answer Comments Discussion of Advance Directives occurred with: Patient Care Teams Ordnance Keeper Relationship Specialty Start Date End Date Alex Crisostomo MD [address] [place], [place] [id number] PCP - General Internal Medicine 03/07/21 documented as of this encounter
--- OUTSIDE RECORDS SUMMARY | 2024-02-06 21:04 | External Medical Summary | Summary of Care ---
Author Name Unknown Organization [facility] Address [address] [place] [address] Phone [phone] Care Team Providers [employer] General Sales Manager Name Role Phone Alex Ulloa MD Primary Care Provider + Reason for Visit * Reason Comments Follow Up Encounter Details Date Type Department Care Team (Late st Contact Info) Description 09/18/2023 4:00 PM EDT Office Visit Cardiology, [facility] [address] [place] [address] Kane Swain MD [address] [address] Paroxysmal atrial fibrillation (HCC)* Allergies Active Allergy Reactions Criticality Noted Date Comments Propoxyphene N-Acetaminophen Other (Please comment) 06/01/2008 Fretfull sleep Hydromorphone Hcl Psych complications 4 hallucinations Iodinated Contrast Media Edema airway High 02/13/2011 Levofloxacin 02/21/2016 Oxycodone-Acetaminophen 01/30/2011 Hydrocodone-Acetaminoph en 01/30/2011 Azithromycin Dihydrate 12/20/2008 documented as of this encounter (statuses as of 09/18/2023) Medications Medication Sig Dispensed Refills Start Date [...] Warfarin Sodium 5 MG Oral Tablet (Jantoven)Indication s:[facility]DC current use of anticoagulant therapy TAKE ONE AND A HALF TABLETS BY MOUTH EVERY DAY 135 Tablet 3 06/27/2023 Active Naproxen Sodium 220 MG Oral Tablet (Aleve) Take 1 Tablet by mouth every 12 hours as needed. Active Melatonin 10 MG Oral Tablet Take 1 Tablet by mouth at bedtime. 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 1 04/10/2008 Female stress incontinence 10/28/2008 History of breast cancer 04/09/2008 Overview: left breast SPINAL STENOSIS-LUMBAR 07/02/2005 documented as of this encounter (statuses as of 09/18/2023) Resolved Problems Problem Noted Date Diagnosed Date [...] as of this encounter (statuses as of 09/18/2023) Immunizations Name Administration Dates Next Due H1N1 [...] Date Smoking Tobacco: Never Smokeless Tobacco: Never Tobacco Cessation:Counseling Given: Not Answered Alcohol Use Standard Drinks/Week Comments No 0 [...] Sign Reading Time Taken Comments Blood Pressure 116/60 09/18/2023 4:05 PM EDT Pulse 88 09/18/2023 4:05 PM EDT Temperature - - Respiratory Rate 24 09/18/2023 4:05 PM EDT Oxygen Saturation - - Inhaled Oxygen Concentration - - Weight 88.4 kg (194 lb 14.4 oz) 09/18/2023 4:05 PM EDT Height - - Body Mass Index 30.53 07/01/2023 2:47 PM EDT documented in this encounter Progress Notes * Kane Swain MD - 09/18/2023 4:00 PM EDT September 18, 2023 Cardiology Follow Up Referring Provider: PCP: [place] [address] [phone] Chief Complaint: Follow-up aortic disease SUBJECTIVE: Debbie Jackson is a 73 year old year old female with ongoing cardiac issues 1. Ascending aortic aneurysm, large pseudoaneurysm of distal aortic arch s/p right subclavian side graft and replacement of the ascending aorta and arch with elephant trunk procedure beyond the left subclavian artery 12/2010. Completion of the elephant trunk procedure with a sequential endovascularstent beginning at the isthmus and extending to the distal descending aorta 02/2014. Follows with [facility] 2. Dyslipidemia goal LDL less than 100mg/dL 3. HTN - 4. Paroxysmal atrial fibrillation 5. Mild non-obstructive CAD 6. Prior CVA with MRI/MRA revealing left MCA distribution felt to be cardioembolic secondary to paroxysmal atrial fibrillation. 7. DVT and PE on chronic Coumadin therapy. I8. Recurrent breast cancer s/p partial mastectomy and radiation therapy 9. Sarcoidosis, pulmonary 10. MTHFR mutation, homozygous Patient presents today in routine follow-up.Denies any acute cardiac complaints. Predominant issue is insomnia chronic myalgias and arthralgias. No chest pains, tachy palpitations, orthopnea or worsening peripheral edema. She remains appropriately anticoagulated. Most recent imaging 12/2022 stable A Complete Review of Systems is as stated above or negative. 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 Cerebrovascular disease, [...] wheezing without complication AAA (abdominal aortic aneurysm) (HCC) Primary hypercoagulable state (HCC) Review of patient's allergies indicates: Allergen Reactions Iodinated Contrast Media Edema airway Darvocet-N [Propoxyphene N-Acetaminophen] Other (Please comment) Fretfull sleep Dilaudid [Hydromorphone Hcl] Psych complications hallucinations Levaquin [Levofloxacin] Percocet [Oxycodone-Acetaminophen] Vicodin [Hydrocodone-Acetaminophen] Zithromax [Azithromycin Dihydrate] Current Outpatient Medications Medication Sig Dispense Refill [...] 1 Capsule by mouth in the morning. Levothyroxine Sodium 100 MCG Oral Tablet (Levoxyl) TAKE 1 TABLET BY MOUTH ONCE DAILY 90 Tablet 2 Rosuvastatin Calcium 5 MG Oral Tablet (Crestor) TAKE ONE TABLET BY MOUTH EVERY OTHER DAY 45 Tablet 3 Citalopram Hydrobromide 20 MG Oral Tablet (CeleXA) TAKE 1 TABLET BY MOUTH EVERY MORNING 90 Tablet 1 Metoprolol Succinate ER 25 MG Oral Tablet Extended Release 24 Hour (toPROL XL) Take 0.5 Tablets by mouth in the morning. (Patient taking differently: Take 0.5 Tablets by mouth every evening.) 45 Tablet 2 Warfarin Sodium 5 MG Oral Tablet (Jantoven) TAKE ONE AND A HALF TABLETS BY MOUTH EVERY DAY 135 Tablet 3 Naproxen Sodium 220 MG Oral Tablet (Aleve) Take 1 Tablet by mouth every 12 hours as needed. Melatonin 10 MG Oral Tablet Take 1 Tablet by mouth at bedtime. (Patient not taking: Reported on 09/18/2023) No current facility-administered medications for this visit. OBJECTIVE/PHYSICAL EXAMINATION: BP 116/60 (BP Site: Left Arm, BP Position: Sitting, BP Cuff Size: Large) | Pulse 88 | Resp 24 | Wt 88.4 kg (194 lb 14.4 oz) | BMI 30.53 kg/m | BSA 2.04 m General: Age appropriate in no acute distress Head: normocephalic, no masses, lesions, tenderness or abnormalities Eyes: conjunctiva are pink and non-injected, sclera clear Throat: clear Nares: without discharge Neck: supple, no adenopathy, normal jugular venous pulse, no hepatojugular reflux, no carotid bruits Chest: normal shape and normal respiratory effort Lungs: clear to auscultation and percussion Cardiac Exam: - regular rate & rhythm, no murmur, gallop or rub - normal S-1, normal S-2 Abdomen: abdomen soft, non-tender, no abnormal masses, no hepatosplenomegaly, no abdominal bruit, no femoral bruit Musculoskeletal: no gait disturbance, no joint inflammation, no deforming arthritis Extremities: no edema, no cyanosis, pulses intact 2+/4 Neuro: grossly normal exam Data: EKG performed September 18, 2023, and reviewed personally : Normal sinus rhythm at 86 beats per minute with poor R-wave progression no acute changes Lipid Panel Results: Results for orders placed or performed in visit on 12/07/22 LIPID PANEL WITH DIRECT LDL IF TG IS HIGH Result Value Ref Range Triglycerides 195 (H) <=174 mg/dL Cholesterol 197 <200 mg/dL HDL Cholesterol 47 (L) >49 mg/dL Non-HDL Cholesterol 150 <=159 mg/dL LDL Cholesterol 111 <=129 mg/dL CT chest November 2022 MPRESSION Status post elephant trunk repair of ascending aorta and aortic arch with descending aortic stent graft placement. There is contrast external to the distal end of the stent graft with aneurysmal dilatation of the descending aorta measuring up to 44 millimeter. ASSESSMENT: 73 year old year old female Very complex constellation of issues including thoracic and aortic arch aneurysm status post surgical and procedural intervention. Appears stable historically and by recent CT though formal interpretation by [facility] pending. No cardiac symptoms PLAN: Patient willing to continue current medical regimen without adjustment currently clinically stable Discussed potential for increase in lipid-lowering therapy or addition of ezetimibe Patient to remain on warfarin, aspirin 81 mg per day. Recommended discontinuing leave DISPOSITION: Continue chronic anticoagulation with warfarin return 6 months Kane Swain MD Cardiology, [address] [address] documented in this encounter Nursing Notes * Stephany Johnson CMA - 09/18/2023 4:38 PM EDT Examination Room: 14 Name: Debbie Jackson Date of : (1950). Reason for Visit: 6M f/u Interim Hospitalization(s): none Problems/Concerns: Denies new concerns at this time. Chest Pain/SOB: Denies CP or unusual SOB [facility] Discussed: Not applicable [facility] is a way you can talk to your provider online through e-mail. Would you like to sign up? I can activate it for you? ALREADY ACTIVE Patient was instructed to not get up on the exam table until directed and assisted by their provider; patient is to remain seated in the chair/ wheelchair/ exam table for fall prevention and safety reasons. Patient is aware to have assistance to step down off exam table with personnel. Patient voiced full comprehension of instructions. documented in this encounter Plan of Treatment Upcoming Encounters Date Type Department Care Team (Late st Contact Info) Description 10/17/2023 1:00 PM EDT Anticoagulation Pharmacy, [facility] [address] [facility] [place] [address] Pharmacist1, [facility] [address] [facility] [place] [address] 01/09/2024 1:00 PM EDT Office Visit General Internal Medicine [facility] [address] [facility] [place] [address] Alex Ulloa MD [address] [facility] [place] [address] 04/17/2024 4:00 PM EST Office Visit Cardiology, [facility] [address] [place] [address] Kane Swain MD [address] [facility] [place] [address] 07/07/2024 12:00 PM EDT Office Visit Pulmonary Medicine, [facility] [address] [facility] [place] [address] Polo Perla MD [address] [place] [address] 09/07/2024 3:00 PM EDT Office Visit Nephrology, [facility] [address] [facility] [place] [address] Sierra Newton MD [address] [facility], [place] [address] 09/14/2024 1:00 PM EDT Imaging Radiology [facility] [address] [place] [address] Scheduled Orders Name Type Priority Associated Diagnoses Orde r Schedule EKG EKG Routine Paroxysmal atrial fibrillation (HCC) Ordered: 09/18/2023 Scheduled Procedures Name Priority Associated Diagnoses Date/Ti me COLONOSCOPY FLEXIBLE PROXIMA L DIAGNOSTIC Recall Encounter for screening colonoscopy Health Maintenance Due Date Last Done Comments Cologuard 1994 Fecal Occult Blood Test 1994 Sigmoidoscopy 1994 DTaP,Tdap,and Td Vaccines (2 - Td or Tdap) 12/09/2017 12/10/2007 COVID-19 Vaccine ( season) 2022 Albumin/Creatinine Ratio 09/22/2023 023, 11/09/2021, 04/26/2021, Additional history exists CKD HGB USE SMARTSET 60217 09/22/202309/21, 11/09/2021, 11/09/2021, Additional history exists Influenza Vaccine (FLU shot) (#1) 2023 11/13/2019, 12/11/2018, 12/25/2017, Additional history exists Mammogram 11/30/2023 11/29/2022, 11/16, 11/28/2021, Additional history exists Depression Monitoring 12/06/2023 12/05/2022 CKD PHOS USE SMARTSET 94371 12/08/202311/17, 11/09/2021, 10/18/2020, Additional history exists GFR [...] this encounter Medical Devices Implanted Type Area Physical Fitness Teacher Device Identifier Shelf Expiration Date Model / Serial / Lot Mesh 10 X 14 [id number] - [id number] Implanted:Qty: 1 on 12/19/2009 at [facility] N/A: Pelvis [employer] 08/16/2014 [id number] / / [id number] documented as of this encounter Visit Diagnoses Diagnosis Paroxysmal atrial fibrillation (HCC)- Primary Atrial fibrillation documented in this encounter Advance Directives * Full Code (Latest Code Status on File) Date Activated Date Inactivated Comments 12/19/2009 3:59 PM 12/21/2009 4:23 PM This order r eflects the patients wishes and were consensually agreed upon. Question Answer Comments Discussion of Advance Directives occurred with: Patient Care Teams Automotive General Sales Manager Relationship Specialty Start Date End Date Alex Ulloa MD [address] [facility] [place] [address] PCP - General Internal Medicine 03/07/21 documented as of this encounter"
--- OUTSIDE RECORDS SUMMARY | 2024-02-06 21:04 | External Medical Summary | Summary of Care ---
Author Name Unknown Organization [facility] Address [address] [place] [address] Phone [phone] Care Team Providers Care Narcotics Detective Name Role Phone Alex Ulloa MD Primary Care Provider + Reason for Visit * Reason Comments Chronic Kidney Disease (CKD) Encounter Details Date Type Department Care Team (Late st Contact Info) Description 07/31/2023 4:00 PM EDT Office Visit [facility]rology[facility] 200 [facility] [place] [address] Sierra Newton MD 200 [facility] [place] [address] Stage 3a chronic kidney disease (HCC)*; Angiomyolipoma of left kidney; Sarcoidosis; Nocturia Allergies Active Allergy Reactions Criticality Noted Date Comments Propoxyphene N-Acetaminophen Other (Please comment) 06/01/2008 Fretfull sleep Hydromorphone Hcl Psych complications 4 hallucinations Iodinated Contrast Media Edema airway High 02/13/2011 Levofloxacin 02/21/2016 Oxycodone-Acetaminophen 01/30/2011 Hydrocodone-Acetaminoph en 01/30/2011 Azithromycin Dihydrate 12/20/2008 documented as of this encounter (statuses as of 08/26/2023) Medications Medication Sig Dispensed Refills Start Date End Date Status MULTIPLE VITAMIN PO TABS One daily Active PROBIOTIC PO CAPS one cap daily 07/13/2010 Acti ve ACETAMINOPHEN 500 MG PO TABS Take by mouth. 100 Tab 0 05/07/2013 Active OMEGA 3 [...] the morning. 45 Tablet 2 06/19/2023 Active Warfarin Sodium 5 MG Oral Tablet (Jantoven)Indications: senior living current use of anticoagulant therapy TAKE ONE AND A HALF TABLETS BY MOUTH EVERY DAY 135 Tablet 3 06/27/2023 Active documented as of this encounter (statuses as of 08/26/2023) Active Problems Problem Noted Date Diagnosed Date [...] as of this encounter (statuses as of 08/26/2023) Resolved Problems Problem Noted Date Diagnosed Date [...] as of this encounter (statuses as of 08/26/2023) Immunizations Name Administration Dates Next Due H1N1 [...] money to get more. Never true 11/04/2021 Sex and Gender Information Value Date Recorded Sex Assigned at Female 07/09/2018 10:19 AM EDT Gender Identity Female 07/09/2018 10:19 AM EDT Sexual Orientation Straight 07/09/2018 10 :19 AM EDT Job Start Date Occupation Industry Not on file Not on file Not on file documented as of this encounter Last Filed Vital Signs Vital Sign Reading Time Taken Comments Blood Pressure 117/74 07/31/2023 3:48 PM EDT Pulse 87 07/31/2023 3:48 PM EDT Temperature 36.8 C (98.3 F) 07/31/2023 3:48 PM ED T Respiratory Rate - - Oxygen Saturation - - Inhaled Oxygen Concentration - - Weight 88.3 kg (194 lb 11.2 oz) 07/31/2023 3:48 PM EDT Height - - Body Mass Index 30.49 07/01/2023 2:47 PM EDT documented in this encounter Patient Instructions * Patient Instructions* Sierra Newton MD - 07/31/2023 4:42 PM EDT -minimize best you can medicines like aleve, advil, ibuprofen, aspirin more than 81 mg daily and other NSAIDS which are not good for kidney patients. Take only tylenol (acetaminophen) up to 2000 mg daily as needed for pain or as directed by your primary care provider. -talk to Dr Gamboa about your concerns w/ MRI -stay as active as you can safely be -recommend you drink less water after supper -melatonin is ok for renal -get an ultrasound before I see you next time documented in this encounter Progress Notes * Sierra Newton MD - 07/31/2023 4:24 PM EDT NEPHROLOGY CLINIC NOTE [facility] [address] 07/31/2023, 4:24 PM Patient Name: Debbie Jackson BACKGROUND: 73 year old female presents for f/u of nonproteinuric CKD3A. PMH includes stroke remotely, HL, HTN on one agent and w/o hx of urgency, hypercoagulable state>hx DVT/PE + for MTHFR homozygous, spinal stenosis, fibromyalgia, stress incontinence and cystocele s/p failed tacking procedure, hypothyroidism, GERD, sarcoidosis, thoracic aortic aneurysm s/p surgical repairs x 2 which per pt are incomplete most recently 02/2014, BRCA s/p XRT & 2011 mastectomy also had another form of BRCA remotely. Sarcoidosis managed by [facility] pul now and at [facility] in past. Follows w/ [facility] cardiology. No hx of nephrolithiasis. No longer on prednisone. Has had sarcoid in eyes in past. 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 TODAY 07/31/2023: had ER eval since last year >> around December; not admitted. Cont to work w/care trainer; but missed several txs since December b/c of excessive fatigue; and often w/ JASON and N. For JASON to have some imaging MRI. Est w/ Dr Swain for cardiology. Gets exhausted w/ multiple activities in a day > Today just to wash her hair and get ready for appt exhausts her, gets shocks of pain down BL arms to fingers. She has cancelled MRI x 2 b/c of worries about metal in the contrast material; has not d/w Dr Gamboa having BL knee pain which is new; Can't sleep and using melatonin 10 mg ; having nocturia and this helps her wake up, sometimes not sleeping Drinking tea > and can't take the tea daily and having facial break out and nipples sore Back sore ; started aleve again for a few doses Drinks 16 oz water bottles x 3 plus green tea/mct/collagen > 1-2 x 8 oz and one 12 oz coffee REVIEW OF SYSTEMS: No F/C, intended wt loss ongoing energy level and appetite acceptable No palpitations, angina, orthopnea, LE edema Cough from earlier this year resolved; no wheeze, or dyspnea No N/V/D/C/abd pain No dysuria, hematuria; marked nocturia/ 5X which is stable; no new/worrisome voiding sx No rash or generalized itch Mostly controlled focal joint/muscle aches No inappropriate bleeding or bruising No presyncopal or orthostatic symptoms; no falls but does have poor balance swerves at times Current Outpatient Medications Medication Sig Dispense Refill MULTIPLE VITAMIN PO TABS One daily PROBIOTIC PO CAPS one cap daily ACETAMINOPHEN 500 MG PO TABS Take by mouth. 100 Tab 0 OMEGA 3 1000 MG [...] mouth in the morning. 45 Tablet 2 Warfarin Sodium 5 MG Oral Tablet (Jantoven) TAKE ONE AND A HALF TABLETS BY MOUTH EVERY DAY 135 Tablet 3 No current facility-administered medications for this visit. Review of patient's allergies indicates: Allergen Reactions Iodinated Contrast Media Edema airway Darvocet-N [Propoxyphene N-Acetaminophen] Other (Please comment) Fretfull sleep Dilaudid [Hydromorphone Hcl] Psych complications hallucinations Levaquin [Levofloxacin] Percocet [Oxycodone-Acetaminophen] Vicodin [Hydrocodone-Acetaminophen] Zithromax [Azithromycin Dihydrate] PHYSICAL EXAMINATION: BP Readings from Last 6 Encounters: 07/31/23 117/74 07/01/23 122/74 06/19/23 118/70 01/30/23 124/66 12/05/22 122/74 07/19/22 109/65 Wt Readings from Last 6 Encounters: 07/31/23 88.3 kg (194 lb 11.2 oz) 07/01/23 87.5 kg (193 lb) 06/19/23 87.5 kg (193 lb) 01/30/23 84.6 kg (186 lb 8 oz) 12/05/22 84.9 kg (187 lb 1.6 oz) 07/19/22 88.2 kg (194 lb 6.4 oz) Pulse Readings from Last 6 Encounters: 07/31/23 87 07/01/23 74 06/19/23 71 01/30/23 68 12/05/22 68 07/19/22 76 NAD, oriented x 3, ambulatory w/o asst, not invited onto table Normocephalic, atraumatic, eomi nonicteric sclerae MMM Supple neck RRR w/o m/g/r; no edema CTAB w/ reasonable air mvt NT abd, +BS, soft No cyanosis or clubbing No rash No tremor, focal or global weakness; fluent and perseverant/pressured speech LABS: Recent Labs Units 06/19/23 1514 12/07/22 1304 09/21/22 1200 05/23/22 1609 SODIUM - [facility] mmol/L 138 141 139 139 POTASSIUM - [facility] mmol/L 4.4 4.4 4.3 5.0 CHLORIDE - [facility] mmol/L 101 103 102 101 CO2 - [facility] mmol/L 28 28 24 28 BUN - [facility] mg/dL 21* 21* 17 27* CREATININE - [facility] mg/dL 1.1* 1.0 1.0 1.2* ESTIMATED GLOMERULAR FILTRATION RATE - [facility] mL/min 54* 60 63 50* Recent Labs Units 09/21/22 1200 11/09/21 1013 HGB g/dL 13.8 14.3 Recent Labs Units 06/19/23 1514 12/07/22 1304 09/21/22 1200 05/23/22 1609 11/09/21 1013 CALCIUM - [facility] mg/dL 10.1 9.7 9.3 10.1 9.8 PHOSPHORUS - [facility] mg/dL -- 3.1 -- -- 3.1 25-HYDROXY VITAMIN D - [facility] ng/mL -- -- -- -- 33 PTH - [facility] pg/mL -- -- -- -- 53 No results for input(s): "HGBA1C" in the last 09603 hours. Recent Labs Units 09/21/22 1204 11/09/21 1021 ALBUMIN/CREATININE RATIO, HIDE mg/g Creat Uninterpretable Albumin/Creatinine ratio due to very low albumin and creatinine values. -- ALBUMIN / CREATININE RATIO, URINE - [facility] mg/g Creat -- <10 Recent Labs Units 09/21/22 1204 11/09/21 1021 CLARITY, URINE - [facility] Clear Clear GLUCOSE, URINE - [facility] mg/dL Negative Negative BILIRUBIN, URINE - [facility] Negative Negative KETONE, URINE - [facility] mg/dL Negative Negative SPECIFIC GRAVITY, URINE - [facility] 1.004 1.015 BLOOD, URINE - [facility] Negative Negative PH, URINE - [facility] Units 6.5 6.0 PROTEIN, URINE - [facility] mg/dL Negative Negative UROBILINOGEN, URINE - [facility] mg/dL Normal Normal NITRITE, URINE - [facility] Negative Negative ESTERASE, URINE - [facility] Large* Moderate* BACTERIA, URINE - [facility] /HPF 0-25 101-150* WBC, URINE - [facility] /HPF 30-49* 10-19* RBC, URINE - [facility] /HPF 0-2 0-2 Renal u/s 09/2022 Right kidney: Hyperechoic lesion measuring 12 x 10 x 14 mm in the lower pole consistent with angiomyolipoma. No stones. No hydronephrosis. Left kidney: 7 mm hyperechoic lesion in the midpole and 38 mm hyperechoic lesion in the superior pole consistent with an angiomyolipoma. Inferior pole cyst measuring 14 mm. No stones. No hydronephrosis. Urinary bladder: Partially filled with no mass, stone or wall thickening. The aorta measures up to 2.8 by 3 cm in the midportion. No dissection. IMPRESSION IMPRESSION: Bilateral renal angiomyolipomas and left lower pole simple cyst appear stable. Infrarenal abdominal aortic aneurysm measuring 30 x 28 mm which is slightly increased in size from 10/03/2021. ASSESSMENT AND PLAN: Stage 3a chronic kidney disease (HCC) (Primary) Angiomyolipoma of left kidney Sarcoidosis Nocturia Follow Up: Return in about 13 months (around 08/30/2024) for clinic visit w/ . | For: clinic visitw/ | Check-out note: only waitlist Labile renal function > probably early ckd 3 A w/ acceptble chemistrie sand volume status -no ARB/joanna Stable BL AML > reimage August 2024 Nocturia for conservative measures >> as per urogyn's last note -do recommend less water intake late in day Patient Instructions -minimize best you can medicines like aleve, advil, ibuprofen, aspirin more than 81 mg daily and other NSAIDS which are not good for kidney patients. Take only tylenol (acetaminophen) up to 2000 mg daily as needed for pain or as directed by your primary care provider. -talk to Dr Gamboa about your concerns w/ MRI -stay as active as you can safely be -recommend you drink less water after supper -melatonin is ok for renal -get an ultrasound before I see you next time Sierra Newton MD Nephrology, [facility] [address] [facility] [address] CC: Ref: ALEX ULLOA[[id number]] [address] [facility] [place] [address] (office) [phone] (fax) PCP: ALEX ULLOA [address] [facility] [place] [address] [phone] This chart was completed in part utilizing [employer] Speech Voice Recognition Software. Randomword insertions, pronoun errors, and incomplete sentences are an occasional consequence of this system due to software limitations, and ambient noise. Any questions or concerns about the content, text, or information contained within the body of this dictation should be directly addressed to the provider for clarification. documented in this encounter Nursing Notes * Yoon Reeves LPN - 07/31/2023 3:47 PM EDT Pt stated no recent illness or hospitalizations. Pt tated she has swelling around right knee. documented in this encounter Plan of Treatment Upcoming Encounters Date Type Department Care Team (Late st Contact Info) Description 09/06/2023 1:00 PM EDT Anticoagulation Pharmacy, [facility] [address] [facility] [place] [address] Pharmacist2, [facility] [address] [place] [address] 09/18/2023 4:00 PM EDT Office Visit Cardiology, [facility] [address] [facility] [place] [address] Kane Swain [facility] [address] 01/09/2024 1:00 PM EDT Office Visit General Internal Medicine [facility] [place] [address] Alex Ulloa MD 200 [facility] [place] [address] 07/07/2024 12:00 PM EDT Office Visit Pulmonary Medicine, [facility] [address] [facility] [place] [address] Polo Perla [facility] [address] [facility] [address] 09/07/2024 3:00 PM EDT Office Visit Nephrology, [facility] [address] [facility] [place] [address] Sierra Newton MD 200 [facility] [place] [address] Scheduled Orders Name Type Priority Associated Diagnoses Orde r Schedule US RENAL Medical Imaging Routine Stage 3a chronic kidney disease (HCC) Angiomyolipoma of left kidney Expected: 09/14/2024, Expires: 09/24/2024 Scheduled Procedures Name Priority Associated Diagnoses Date/Ti me COLONOSCOPY FLEXIBLE PROXIMA L DIAGNOSTIC Recall Encounter for screening colonoscopy Health Maintenance Due Date Last Done Comments Cologuard 1994 Fecal Occult Blood Test 1994 Sigmoidoscopy 1994 DTaP,Tdap,and Td Vaccines (2 - Td or Tdap) 12/09/2017 12/10/2007 COVID-19 Vaccine (1 - season) 2022 Albumin/Creatinine Ratio 09/22/2023 023, 11/09/2021, 04/26/2021, Additional history exists CKD HGB USE SMARTSET 58608 09/22/202309/21, 11/09/2021, 11/09/2021, Additional history exists Influenza Vaccine (FLU shot) (Season Ended) 2023 11/13/2019, 12/11/2018, 12/25/2017, Additional history exists Mammogram 11/30/2023 11/29/2022, 11/16, 11/28/2021, Additional history exists Depression Monitoring 12/06/2023 12/05/2022 CKD PHOS USE SMARTSET 45057 12/08/202311/17, 11/09/2021, 10/18/2020, Additional history exists GFR 12/19/2023 06/19/2023, 11/17, 09/21/2022, Additional history exists TSH 06/18/2024 06/19/2023, 11/17, 11/09/2021, Additional history exists DXA Scan 08/23/2025 08/23/2020, 07/17, 07/29/2013, Additional history exists Colonoscopy 08/08/2026 08/08/2016, 05/02/2004 Colorectal Cancer Screening 08/08/2026 Pneumococcal Vaccine: 65+ Years Completed 06/27/2016, 03/15/2015 Zoster Vaccines Completed 11/11/2019, 05/17/2019 GARDASIL-HPV IMMUNIZATION SERIES Aged Out No longer eligible based on patient's age to complete this topic Hepatitis B Aged Out No longer eligi ble based on patient's age to complete this topic MENINGOCOCCAL (MENACTRA/MENVEO) Aged Out No longer eligible based on patient's age to complete this topic documented as of this encounter Medical Devices Implanted Type Area Remelt Pan Tank Operator Device Identifier Shelf Expiration Date Model / Serial / Lot Mesh 10 X 14 [id number] - [id number] Implanted:Qty: 1 on 12/19/2009 at [place] [facility] N/A: Pelvis [employer] 08/16/2014 [id number] / / [id number] documented as of this encounter Visit Diagnoses Diagnosis Stage 3a chronic kidney disease (HCC)- Primary Angiomyolipoma of left kidney Sarcoidosis Nocturia documented in this encounter Advance Directives * Full Code (Latest Code Status on File) Date Activated Date Inactivated Comments 12/19/2009 3:59 PM 12/21/2009 4:23 PM This order r eflects the patients wishes and were consensually agreed upon. Question Answer Comments Discussion of Advance Directives occurred with: Patient Care Teams Narcotics Detective Relationship Specialty Start Date End Date Alex Ulloa MD [address] [place] [address] PCP - General Internal Medicine 03/07/21 documented as of this encounter
--- OUTSIDE RECORDS SUMMARY | 2024-02-06 21:04 | External Medical Summary | Summary of Care ---
Author Name Unknown Organization [facility] Address [address] [place] [address] Phone [phone] Care Team Providers Care Acid Pumper Name Role Phone Alex Crisostomo MD Primary Care Provider + Reason for Visit * Reason Comments Dosage Adjustment In Person (Anticoag Cl inic) Encounter Details Date Type Department Care Team (Latest Contact Info) Description 09/06/2023 1:00 PM EDT Anticoagulation Pharmacy, [facility] [address] [place] [address] Pharmacist2, [facility] 200 [place] [address] Paroxysmal atrial fibrillation (HCC)*; Patent foramen ovale; History of pulmonary embolism Allergies Active Allergy Reactions Criticality Noted Date Comments Propoxyphene N-Acetaminophen Other (Please comment) 06/01/2008 Fretfull sleep Hydromorphone Hcl Psych complications 4 hallucinations Iodinated Contrast Media Edema airway High 02/13/2011 Levofloxacin 02/21/2016 Oxycodone-Acetaminophen 01/30/2011 Hydrocodone-Acetaminoph en 01/30/2011 Azithromycin Dihydrate 12/20/2008 documented as of this encounter (statuses as of 09/06/2023) Medications Medication Sig Dispensed Refills Start Date [...] Warfarin Sodium 5 MG Oral Tablet (Jantoven)Indications: intermediate frame tender current use of anticoagulant therapy TAKE ONE AND A HALF TABLETS BY MOUTH EVERY DAY 135 Tablet 3 06/27/2023 Active documented as of this encounter (statuses as of 09/06/2023) Active Problems Problem Noted Date Diagnosed Date [...] as of this encounter (statuses as of 09/06/2023) Resolved Problems Problem Noted Date Diagnosed Date [...] as of this encounter (statuses as of 09/06/2023) Immunizations Name Administration Dates Next Due H1N1 [...] as of this encounter Progress Notes * Farrukh Cartagena RPh - 09/06/2023 1:05 PM EDT Medication Therapy Disease Management - Anticoagulation Patient: Debbie Jackson | : 1950 Subjective Patient-Reported Symptoms: Patient Findings Negatives: Signs/symptoms of thrombosis, Signs/symptoms of bleeding, Change in health, Change in alcohol use, Change in activity, Upcoming invasive procedure, Missed doses, Extra doses, Change in medications, Change in diet/appetite, Bruising Objective Current Warfarin Dose As of 09/06/2023 Warfarin maintenance plan: 5 mg (5 mg x 1) every Sun, Wed; 7.5 mg (5 mg x 1.5) all other days INR Result As of 09/06/2023 INR goal: 2.0-3.0 INR used for dosin.0 (09/06/2023) Assessment & Plan Warfarin Plan As of 09/06/2023 Full warfarin instructions: 5 mg every Sun, Wed; 7.5 mg all other days No change documented: Farrukh Cartagena RPh Next INR check: 10/17/2023 Repeat PT/INR in 6 week(s) Weekly dose: not changed Additional Dosing Information: Farrukh Cartagena [facility] Clinical Pharmacist 09/06/2023, 1:06 PM documented in this encounter Plan of Treatment Upcoming Encounters Date Type Department Care Team (Late st Contact Info) Description 09/18/2023 4:00 PM EDT Office Visit Cardiology, [facility] 132 [facility] [place] [address] Kane Swain MD 132 [facility] [place] [address] 10/17/2023 1:00 PM EDT Anticoagulation Pharmacy, [facility] 200 [facility] [place] [address] Pharmacist1, [facility] 200 [facility] [place] [address] 01/09/2024 1:00 PM EDT Office Visit General Internal Medicine [facility] 200 [facility] [place] [address] Alex Crisostomo MD 200 [facility] [place] [address] 07/07/2024 12:00 PM EDT Office Visit Pulmonary Medicine, [facility] 132 [facility] [place] [address] Polo Perla MD [address] [place] [facility] [place] [address] 09/07/2024 3:00 PM EDT Office Visit Nephrology, [facility] 200 [facility] [place] [address] Sierra Newton MD 200 [facility] [place] [address] 09/14/2024 1:00 PM EDT Imaging Radiology [facility] [address] [facility] [place] [address] Scheduled Procedures Name Priority Associated Diagnoses Date/Ti me COLONOSCOPY FLEXIBLE PROXIMA L DIAGNOSTIC Recall Encounter for screening colonoscopy Health Maintenance Due Date Last Done Comments Cologuard 1994 Fecal Occult Blood Test 1994 Sigmoidoscopy 1994 DTaP,Tdap,and Td Vaccines (2 - Td or Tdap) 12/09/2017 12/10/2007 COVID-19 Vaccine (1 - season) 2022 Albumin/Creatinine Ratio 09/22/2023 023, 11/09/2021, 04/26/2021, Additional history exists CKD HGB USE SMARTSET 38619 09/22/202309/21, 11/09/2021, 11/09/2021, Additional history exists Influenza Vaccine (FLU shot) (Season Ended) 2023 11/13/2019, 12/11/2018, 12/25/2017, Additional history exists Mammogram 11/30/2023 11/29/2022, 11/16, 11/28/2021, Additional history exists Depression Monitoring 12/06/2023 12/05/2022 CKD PHOS USE SMARTSET 22072 12/08/202311/17, 11/09/2021, 10/18/2020, Additional history exists GFR [...] this encounter Medical Devices Implanted Type Area Credit Collection Associate Device Identifier Shelf Expiration Date Model / Serial / Lot Mesh 10 X 14 [id number] - [id number] Implanted:Qty: 1 on 12/19/2009 at [facility] [place] N/A: Pelvis [employer] 08/16/2014 [id number] / / [id number] documented as of this encounter Procedures Procedure Name Priority Date/Time Associated Diagnosis Comments INR FINGERSTICK, POINT OF CARE STAT 09/06/2023 1:08 PM EDT Paroxysmal atrial fibrillation (HCC) documented in this encounter Results * INR FINGERSTICK, POINT OF CARE (09/06/2023 1:08 PM EDT) Fingerstick INR 3.0 INR 1:13 PM EDT [facility] Blood 09/06/2023 1:08 PM EDT 09/06/2023 1:13 PM EDT Narrative [facility] - 09/06/2023 1:13 PM EDT Therapeutic ranges for non-operative patients: Prophylaxsis/treatment of DVT: (Range:2.0-3.0) Treatment of pulmonary embolism:(Range:2.0-3.0) Prevention of systemic embolism from: -tissue heart valves -acute myocardial infarction -valvular heart disease -atrial fibrillation (Range: 2.0-3.0) Mechanical prosthetic valves: (Range: 2.5-3.5) Farrukh Cartagena [facility] LAB POINT O F CARE TEST DOCKED DEVICE UNSOLICITED RESULTS [facility] [place] [address] documented in this encounter Visit Diagnoses Diagnosis [...] Advance Directives occurred with: Patient Care Teams Acid Pumper Relationship Specialty Start Date End Date Alex Crisostomo MD 200 [place] [address] PCP - General Internal Medicine 03/07/21 documented as of this encounter"
--- OUTSIDE RECORDS SUMMARY | 2024-02-06 21:04 | External Medical Summary | Summary of Care ---
Author Name Unknown Organization [facility] Address [address] [place] [address] Phone [phone] Care Team Providers Care Liberal Arts Dean Name Role Phone Alex Crisostomo MD Primary Care Provider + Encounter Details Date Type Department Care Team (Late st Contact Info) Description 09/09/2023 Orders Only Outcomes Research Department [address] [place] [address] Jennyfer Silva CHRA MyCode Research Other*[id number] Allergies Active Allergy Reactions Criticality Noted Date Comments Propoxyphene N-Acetaminophen Other (Please comment) 06/01/2008 Fretfull sleep Hydromorphone Hcl Psych complications 4 hallucinations Iodinated Contrast Media Edema airway High 02/13/2011 Levofloxacin 02/21/2016 Oxycodone-Acetaminophen 01/30/2011 Hydrocodone-Acetaminoph en 01/30/2011 Azithromycin Dihydrate 12/20/2008 documented as of this encounter (statuses as of 09/09/2023) Medications Medication Sig Dispensed Refills Start Date [...] Warfarin Sodium 5 MG Oral Tablet (Jantoven)Indications: half-way current use of anticoagulant therapy TAKE ONE AND A HALF TABLETS BY MOUTH EVERY DAY 135 Tablet 3 06/27/2023 Active documented as of this encounter (statuses as of 09/09/2023) Active Problems Problem Noted Date Diagnosed Date [...] foramen ovale 02/08/2009 Anticoagulation management encounter 02/08/2009 half-way current use of anticoagulant therapy 1 04/10/2008 Female stress incontinence 10/28/2008 History of breast cancer 04/09/2008 Overview: left breast SPINAL STENOSIS-LUMBAR 07/02/2005 documented as of this encounter (statuses as of 09/09/2023) Resolved Problems Problem Noted Date Diagnosed Date [...] as of this encounter (statuses as of 09/09/2023) Immunizations Name Administration Dates Next Due H1N1 [...] 09/18/2023 4:00 PM EDT Office Visit Cardiology, [facility] [address] [facility] [place] [address] Kane Swain MD [address] [facility] [place] [address] 10/17/2023 1:00 PM EDT Anticoagulation Pharmacy, [facility] [address] [place] [address] Pharmacist1, [facility] [address] [place] [address] 01/09/2024 1:00 PM EDT Office Visit General Internal Medicine [facility] [address] [place] [address] Alex Crisostomo MD [address] [place] [address] 07/07/2024 12:00 PM EDT Office Visit Pulmonary Medicine, [facility] [address] [facility] [place] [address] Polo Perla MD [address] [place] [address] 09/07/2024 3:00 PM EDT Office Visit Nephrology, [facility] [address] [place], [place] [address] Sierra Newton MD [address] [place] [address] 09/14/2024 1:00 PM EDT Imaging Radiology [facility] [address] [facility] [place] [address] Scheduled Orders Name Type Priority Associated Diagnoses Orde r Schedule MYCODE SUBSEQUENT ADULT Lab Routine MyCode Research Other*[id number] Every 6 Months for 2 Occurrences starting 09/09/2023 until 09/28/2024 Scheduled Procedures Name Priority Associated Diagnoses Date/Ti me COLONOSCOPY FLEXIBLE PROXIMA L DIAGNOSTIC Recall Encounter for screening colonoscopy Health Maintenance Due Date Last Done Comments Cologuard 1994 Fecal Occult Blood Test 1994 Sigmoidoscopy 1994 DTaP,Tdap,and Td Vaccines (2 - Td or Tdap) 12/09/2017 12/10/2007 COVID-19 Vaccine ( - season) 2022 Albumin/Creatinine Ratio 09/22/2023 023, 11/09/2021, 04/26/2021, Additional history exists CKD HGB USE SMARTSET 75133 09/22/202309/21, 11/09/2021, 11/09/2021, Additional history exists Influenza Vaccine (FLU shot) (Season Ended) 2023 11/13/2019, 12/11/2018, 12/25/2017, Additional history exists Mammogram 11/30/2023 11/29/2022, 11/16, 11/28/2021, Additional history exists Depression Monitoring 12/06/2023 12/05/2022 CKD PHOS USE SMARTSET 22948 12/08/202311/17, 11/09/2021, 10/18/2020, Additional history exists GFR [...] this encounter Medical Devices Implanted Type Area Ovens Supervisor Device Identifier Shelf Expiration Date Model / Serial / Lot Mesh 10 X 14 [id number] - [id number] Implanted:Qty: 1 on 12/19/2009 [place] [facility] [place] Pelvis [employer] 08/16/2014 [id number] / / [id number] documented as of this encounter Visit Diagnoses Diagnosis MyCode Research Other*[id number] documented in this encounter Advance Directives * Full Code (Latest Code Status on File) Date Activated Date Inactivated Comments 12/19/2009 3:59 PM 12/21/2009 4:23 PM This order r eflects the patients wishes and were consensually agreed upon. Question Answer Comments Discussion of Advance Directives occurred with: Patient Care Teams Liberal Arts Dean Relationship Specialty Start Date End Date Alex Crisostomo MD [address] [facility] [place] [address] PCP - General Internal Medicine 03/07/21 documented as of this encounter
--- OUTSIDE RECORDS SUMMARY | 2024-02-06 21:04 | External Medical Summary ---
Author Name Unknown Address Unknown Organization K09:[facility] [place] [address] Laboratory Report Ordering Provider Test Date Status HELENE PENA 09/06/2023 13:08:55 Final Therapeutic ranges for non-o perative patients:
Prophylaxsis/treatment of DVT: (Range:2.0-3.0)
Treatment of pulmonary embolism:(Range:2.0-3.0)
Prevention of systemic embolism from:
-tissue heart valves
-acute myocardial infarction
-valvular heart disease
-atrial fibrillation
(Range: 2.0-3.0)
Mechanical prosthetic valves: (Range: 2.5-3.5) Observation Date Value Abnormality Reference (Units ) Status INR in Capillary blood by Coagulation assay 09/06/2023 13:08:55 3.0 (INR) Final Performing Location [facility] [place] [address]
--- NOTE | 2024-02-07 05:37 | Electrocardiogram Report ---
Test Reason : Blood Pressure : */* mmHG Vent. Rate : 115 BPM Atrial Rate : 102 BPM P-R Int : * ms QRS Dur : 78 ms QT Int : 308 ms P-R-T Axes : * -19 107 degrees QTcB Int : 426 ms Atrial fibrillation with rapid ventricular response Inferior infarct , age undetermined Nonspecific T wave abnormality Abnormal ECG When compared with ECG of 05-Feb-2024 15:27, Minimal criteria for Anterior infarct are no longer Present Inferior infarct is now Present Confirmed by Telly Plasencia ([id number]) on 02/07/2024 5:37:12 AM Referred By: Alex Crisostomo Confirmed By: Telly Plasencia
[2024-02-07 07:22] LABS: Hematocrit (blood only) 42.5 % (37.0-47.0); Hemoglobin 14.1 g/dl (12.0-16.0); Mean Corpuscular Hemoglobin 29.7 pg (25.0-34.0); Mean Corpuscular Hgb Conc 33.2 g/dL (32.0-36.0); Mean Corpuscular Volume 89.5 fL (80.0-100.0); Mean Platelet Volume 9.4 fL (9.4-12.4); Platelet Count 241 K/uL (130-400); RDW Coefficient of Variation 13.5 % (11.5-14.5); RDW Standard Deviation 44.7 fL (36.4-46.3); Red Blood Count 4.75 M/uL (4.20-5.40); White Blood Count 8.51 K/ul (4.8-10.8)
[2024-02-07 07:43] LABS: Albumin Globulin Ratio 1.3 (0.9-2); Albumin Level 3.8 gm/dl (3.4-5.0); BUN Creatinine Ratio 17.1 (10-20); Bilirubin,Total 0.9 mg/dl (0.2-1.0); Calcium 9.6 mg/dl (8.6-10.3); Creatinine Clr Calc Pharmacy 54.8 ml/min; Globulin 2.9 gm/dl (2.5-4.0); Potassium 4.1 mmol/L (3.5-5.1); Total Protein 6.7 gm/dl (6.0-8.3)
--- NOTE | 2024-02-07 07:46 | Hospitalist Progress Note ---
Date of Service February 06, 2024 (late entry) Assessment & Plan (1) Atrial fibrillation with rapid ventricular response: Plan: History of paroxysmal atrial fibrillation and presented with rapid irregular heart rate which was seen in [facility] without any significant symptoms She received 2 doses of Lopressor 5 mg each in the emergency room with some improvement of the heart rate Has been on 12.5 mg metoprolol succinate daily. On IV heparin metoprolol increased to 25 mg bid Cardiology consulted, possible cardioversion tmrw (2) Sarcoidosis: Plan: History of sarcoidosis No acute symptoms to suggest flare up of sarcoidosis (3) DVT (deep venous thrombosis): Plan: History of DVT and pulmonary embolism on Coumadin monitor INR (4) Pulmonary emboli: (5) Hypothyroidism: Plan: Will continue with thyroid medications TSH 1.8 DVT prophylaxis, On Coumadin, iv heparin CODE STATUS Full Admission and Anticipated Discharge Date Admission Date: February 05, 2024 Subjective Pt seen in follow up of Afib w/ RVR Pt is sitting up in bed in NAD on iv heparin Denies any fever, chills, chest pain, shortness of breath Reports she is chronically very tired but denies any palpitations and reports she only knew she was in Afib from her smart watch Review of Systems Review of Systems: All systems reviewed & are unremarkable except as noted in Subjective Physical Exam Physical Exam: Physical Exam: Lying in bed with out any apparent d istress Constitutional: average body habit us; not ill appear ing Eyes: EOMI, conjunctivae normal, anicteric sclerae ENMT: external ear and n ose normal, oropha rynx normal Neck: supple Respiratory: no respiratory dis tress Auscultatio n: lungs clear to auscultation bilat erally Cardiovascular: + irregularly irre gular ,no murmur Extremities: + Tra ce edema bilateral ly Gastrointestinal ( Abdomen): Inspection/Auscult ation: normal krishan l sounds; abdomen not distended Per cussion/Palpation: abdomen soft; abd omen nontender Musculoskeletal: moves extremities Neurologic: awake, alert, orie nted, answers appr opriately, no faci al asymmetry, move s extremities Psychiatric: A+Ox3, euthymic af fect Results & Data Results & Data Vital Signs (Past 12 Hours) Vital Signs Temp Pulse Pulse Resp BP Pulse Ox O2 Del Method 02/06/24 23:03 36.8 C 86 18 151/78 H 91 Room Air 02/06/24 21:50 87 Medications Administered Current Inpatient Medications Acetaminophen (Acetaminophen 325 Mg Tab) 650 mg PO Q6H PRN PRN Reason: Pain or Fever Stop: 03/07/24 19:55 Last Admin: 02/06/24 20:12 Dose: 650 mg Aspirin (Aspirin 81 Mg Ectab) 81 mg PO DAILY GIOVANNA Stop: 03/07/24 08:59 Last Admin: 02/06/24 07:54 Dose: 81 mg Citalopram Hydrobromide (Citalopram 20 Mg Tab) 20 mg PO QAM GIOVANNA Stop: 03/07/24 08:59 Last Admin: 02/06/24 07:53 Dose: 20 mg Diphenhydramine HCl (Diphenhydramine Capsule 25 Mg Cap) 25 mg PO HS PRN PRN Reason: Insomnia Stop: 03/07/24 19:55 Last Admin: 02/06/24 20:12 Dose: 25 mg Fish Oil ([place]-3 (Purified Fish Oil) 1 Gm Cap) 1 cap PO DAILY GIOVANNA Stop: 03/07/24 08:59 Last Admin: 02/06/24 07:55 Dose: 1 cap Heparin Sodium/Dextrose (Heparin Sodium/Dextrose) 25,000 units in 500 mls @ 27 mls/hr IV .[id number] [facility]; Protocol Stop: 03/07/24 11:44 Last Admin: 02/07/24 06:56 Dose: 1,350 units/hr, 27 mls/hr Diltiazem HCl 125 mg/ Dextrose 125 mls @ 5 mls/hr IV .Q24H [facility]; Protocol Stop: 03/07/24 15:29 Last Titration: 02/07/24 06:57 Dose: 5 mg/hr, 5 mls/hr Lactobacillus Acidophilus (Advanced Probiotic 625 Mg Capsule) 1,250 mg PO DAILY GIOVANNA Stop: 03/07/24 08:59 Last Admin: 02/06/24 07:55 Dose: 1,250 mg Levothyroxine Sodium (Levothyroxine Sodium 100 Mcg Tablet) 100 mcg PO DAILYBB GIOVANNA Stop: 03/07/24 06:29 Last Admin: 02/07/24 06:02 Dose: 100 mcg Melatonin (Melatonin 3 Mg Tab) 9 mg PO HS GIOVANNA Stop: 03/06/24 22:17 Last Admin: 02/06/24 20:13 Dose: 9 mg Metoprolol Succinate (Metoprolol Succ 25mg Ext Rel Tab) 25 mg PO BID GIOVANNA Stop: 03/07/24 20:59 Last Admin: 02/06/24 20:13 Dose: 25 mg Multivitamins (Multivitamin Tab) 1 tab PO DAILY GIOVANNA Stop: 03/07/24 08:59 Last Admin: 02/06/24 07:56 Dose: 1 tab Pregabalin (Pregabalin 25 Mg Cap) 25 mg PO AMHS GIOVANNA Stop: 03/06/24 22:17 Last Admin: 02/06/24 20:13 Dose: Not Given Rosuvastatin Calcium (Rosuvastatin Calcium 5 Mg Tab) 5 mg PO Q48H GIOVANNA Stop: 03/07/24 08:59 Last Admin: 02/06/24 07:55 Dose: 5 mg Warfarin Sodium (Warfarin Sod 7.5 Mg Tab) 7.5 mg PO DAILY@1600 [facility] Stop: 03/07/24 15:59 Last Admin: 02/06/24 15:10 Dose: 7.5 mg
[2024-02-07 07:49] LABS: INR 2.1 (0.9-1.1); Prothrombin Time 21.6 Seconds (9.0-12.0)
[2024-02-07 08:01] LABS: ANTI-Xa, UFH(UnfractionatedHep 0.76 IU/ml (0.3-0.7)
--- NOTE | 2024-02-07 08:33 | Cardiology Progress Note ---
Date of Service February 07, 2024 Assessment & Plan (1) Atrial fibrillation with rapid ventricular response: (2) Nonobstructive atherosclerosis of coronary artery: (3) Sarcoidosis: (4) Thoracic aortic aneurysm: (5) HTN, goal below 130/80: (6) PAF (paroxysmal atrial fibrillation): (7) History of CVA (cerebrovascular accident): (8) Personal history of DVT (deep vein thrombosis): (9) Personal history of pulmonary embolism: (10) MTHFR mutation: Plan 73 year old female admitted with atrial fibrillation with a rapid ventricular response observed via her smart watch starting on Sunday, February 04, 2024. Patient with a history of paroxysmal atrial fibrillation, chronically prescribed Coumadin anticoagulation with history of prior cardioembolic left MCA distribution CVA, homozygous MTHFR mutation, past DVT and PE. [id number] 6 points. Recommendation: * INR 2.1. Discontinue heparin infusion * Discontinue diltiazem infusion * Continue increased dose of metoprolol succinate 25 mg 2 times per day * Keep n.p.o. for EDIE cardioversion today. Admission and Anticipated Discharge Date Admission Date: February 05, 2024 Subjective Patient seen cardiology follow-up. Remains in rate controlled atrial fibrillation having been on a diltiazem infusion overnight. Rate in the 70s to 80s. No symptoms at rest, but she has mostly been bedbound. Physical Exam Constitutional: WD/WN, vitals as above Eyes: PERRL, conjunctivae normal, anicteric sclerae Respiratory: normal respiratory effort, lungs clear to auscultation Cardiovascular: Rate/Rhythm: + irregularly irregular Heart Sounds: no murmur Vessels: no JVD Extremities: no edema Gastrointestinal (Abdomen): normal bowel sounds, soft, nontender, no hepatosplenomegaly Neurologic: PERRL, EOMI, accommodation nl, no face palsy, no dysarthria Results & Data Vital Signs (Past 12 Hours) Vital Signs Temp Pulse Pulse Resp BP Pulse Ox O2 Del Method 02/07/24 07:42 36.6 C 79 18 143/76 H 92 Room Air 02/07/24 07:36 86 02/07/24 03:51 36.6 C 79 18 125/81 92 Room Air 02/06/24 23:03 36.8 C 86 18 151/78 H 91 Room Air 02/06/24 21:50 87 Laboratory Results INR 2.1 Diagnostic Findings EKG performed 02/06/2024: Atrial fibrillation 115 bpm. Diffuse nonspecific T wave flattening. Echocardiogram performed 02/06/2024. Atrial fibrillation with rate between 100 to 110 bpm. LVEF in the range of 55 to 60%. Mild left atrial enlargement No significant valvular disease.
--- NOTE | 2024-02-07 13:15 | History & Physical Bridge Note ---
Date of Service February 07, 2024 History & Physical Bridge Note I have examined the patient, reviewed the History & Physical and in the interval since the performance of the History & Physical I have noted the following changes of clinical significance: no changes noted
[2024-02-07] MEDS ORDERED: LIDOCAINE 2% 2 ML VIAL/AMP(20MG/ML) INFIL ONE (13:31)
[2024-02-07] MEDS ORDERED: PROPOFOL IV EMULSION 10 MG/ML 20 ML VIAL IV ONE (13:31)
--- NOTE | 2024-02-07 13:32 | Anesthesiology Consultation ---
Date of Service February 07, 2024 Assessment & Plan (1) Encounter for pre-operative examination: Chart Review Chart Review: Acceptable Risk for Surgery and Patient NOT seen in Pre Admission Testing Consults Requested none History Surgery Operation Date: 02/07/24 12:00 Proposed Procedures p Transesophageal Echo w/Anesthesia - Perry Macedo DO s Cardioversion - Perry Macedo DO Height/Weight Height: 5 ft 7 in Weight: 92.1 kg Allergies Allergy/AdvReac Type Severity Reaction Status Date / Time Iodinated Contrast Media Allergy Mild Rash Verified 02/05/24 18:44 hydrocodone Allergy Unknown other Verified 02/05/24 18:44 levofloxacin Allergy Unknown RASH Verified 02/05/24 18:44 propoxyphene Allergy Unknown UNKNOWN. Verified 02/05/24 18:44 azithromycin AdvReac Intermediate Deafness Verified 02/05/24 18:44 for several weeks hydromorphone AdvReac Intermediate Hallucinati Verified 02/05/24 18:44 ons oxycodone AdvReac Mild other Verified 02/05/24 18:44 Medications Home Medications Medication Instructions Recorded Confirmed Last Taken Lactobacillus 1 cap PO DAILY 09/08/19 02/05/24 Unknown acidophilus-Bifidobac.animalis 31 billion cell capsule citalopram 20 mg tablet 20 mg PO QAM 09/08/19 02/05/24 Unknown coenzyme Q10 100 mg capsule 100 mg PO .TAKE DIRECTED. 09/08/19 02/05/24 Unknown metoprolol succinate 25 mg 12.5 mg PO QAM 09/08/19 02/05/24 Unknown tablet,extended release 24 hr multivitamin (Daily Multi-Vitamin 1 tab PO DAILY 09/08/19 02/05/24 Unknown tablet) rosuvastatin 5 mg tablet 5 mg PO Q OTHER DAY 09/08/19 02/05/24 Unknown red yeast rice 600 mg tablet 600 mg PO QAM 09/10/19 02/05/24 Unknown warfarin 5 mg tablet (Jantoven) 7.5 mg PO DAILY 04/27/20 02/05/24 Unknown aspirin 81 mg tablet,delayed 81 mg PO DAILY 02/05/24 02/05/24 Unknown release coQ10 (ubiquinol) 200 mg capsule 200 mg PO DAILY 02/05/24 02/05/24 Unknown levothyroxine 100 mcg tablet 100 mcg PO DAILYBB 02/05/24 02/05/24 Unknown melatonin 10 mg tablet 10 mg PO HS 02/05/24 02/05/24 Unknown omega-3 fatty acids 1,250 mg 1,250 mg PO DAILY 02/05/24 02/05/24 Unknown capsule pregabalin 25 mg capsule 25 mg PO AMHS 02/05/24 02/05/24 Unknown turmeric root extract 500 mg 500 mg PO QAM 02/05/24 02/05/24 Unknown capsule Active Medications Generic Name Dose Route Start Last Admin Trade Name Fre PRN Reason Stop Dose Admin Acetaminophen 650 mg 02/06/24 19:56 02/06/24 20:12 Acetaminophen 325 Mg Tab PO 03/07/24 19:55 650 mg Q6H PRN Administration Pain or Fever Aspirin 81 mg 02/06/24 09:00 02/07/24 08:17 Aspirin 81 Mg Ectab PO 03/07/24 08:59 81 mg DAILY GIOVANNA Administration Citalopram Hydrobromide 20 mg 02/06/24 09:00 02/07/24 08:18 Citalopram 20 Mg Tab PO 03/07/24 08:59 20 mg QAM GIOVANNA Administration Diphenhydramine HCl 25 mg 02/06/24 19:56 02/06/24 20:12 Diphenhydramine Capsule 25 Mg Cap PO 03/07/24 19:55 25 mg HS PRN Administration Insomnia Fish Oil 1 cap 02/06/24 09:00 02/07/24 08:17 [place]-3 (Purified Fish Oil) 1 Gm Cap PO 03/07/24 08:59 1 cap DAILY GIOVANNA Administration Lactobacillus Acidophilus 1,250 mg 02/06/24 09:00 02/07/24 08:17 Advanced Probiotic 625 Mg Capsule PO 03/07/24 08:59 1,250 mg DAILY GIOVANNA Administration Levothyroxine Sodium 100 mcg 02/06/24 06:30 02/07/24 06:02 Levothyroxine Sodium 100 Mcg Tablet PO 03/07/24 06:29 100 mcg DAILYBB GIOVANNA Administration Melatonin 9 mg 02/05/24 22:18 02/06/24 20:13 Melatonin 3 Mg Tab PO 03/06/24 22:17 9 mg HS GIOVANNA Administration Metoprolol Succinate 25 mg 02/06/24 21:00 02/07/24 08:14 Metoprolol Succ 25mg Ext Rel Tab PO 03/07/24 20:59 25 mg BID GIOVANNA Administration Multivitamins 1 tab 02/06/24 09:00 02/07/24 08:17 Multivitamin Tab PO 03/07/24 08:59 1 tab DAILY GIOVANNA Administration Pregabalin 25 mg 02/05/24 22:18 02/07/24 08:12 Pregabalin 25 Mg Cap PO 03/06/24 22:17 Not Given AMHS GIOVANNA Rosuvastatin Calcium 5 mg 02/06/24 09:00 02/06/24 07:55 Rosuvastatin Calcium 5 Mg Tab PO 03/07/24 08:59 5 mg Q48H GIOVANNA Administration Warfarin Sodium 7.5 mg 02/06/24 16:00 02/06/24 15:10 Warfarin Sod 7.5 Mg Tab PO 03/07/24 15:59 7.5 mg DAILY@1600 GIOVANNA Administration Past Medical History Medical History (Updated 02/07/24 @ 14:56 by Jai Ohara MD) Encounter for pre-operative examination Peripheral neuropathy Esophageal reflux Chronic bronchitis Cerebral artery occlusion with cerebral infarction Breast cancer MTHFR mutation Personal history of pulmonary embolism Personal history of DVT (deep vein thrombosis) PAF (paroxysmal atrial fibrillation) Atrial fibrillation with rapid ventricular response Sarcoidosis Cerebral embolism without cerebral infarction (08/06/12) Benign tumor of kidney Aorta aneurysm Exercise / Class Metabolic Activity II 4-5 Yardwork/Stairs/Walk up hill Past Family History Family History Other Family history non-contributory Past Surgical History Surgical History History of heart surgery History of bilateral mastectomy History of bladder surgery 2010 History of heart surgery aorta - 2011 Social History Smoking Status: Never smoker Do You Dip or Chew Tobacco: No Hx Alcohol Use: No Hx Substance Use: No substance use type: does not use Physical Exam Vital Signs Last Vital Signs Temp 36.7 C 02/07/24 14:50 Pulse 68 02/07/24 14:50 Resp 17 02/07/24 14:50 BP 109/63 02/07/24 14:50 Pulse Ox 98 02/07/24 14:50 O2 Del Method Room Air 02/07/24 14:50 Testing Laboratory Results 02/07/24 07:06 02/07/24 07:06 PT 21.6 Seconds (9.0-12.0) H 02/07/24 07:06 INR 2.1 (0.9-1.1) H 02/07/24 07:06 APTT 34 Seconds (21-31) H 02/05/24 15:36 Electrocardiogram Date: 02/05/24 DICTATED BY: Telly Plasencia MD Test Reason : Blood Pressure : */* mmHG Vent. Rate : 115 BPM Atrial Rate : 102 BPM P-R Int : * ms QRS Dur : 78 ms QT Int : 308 ms P-R-T Axes : * -19 107 degrees QTcB Int : 426 ms Atrial fibrillation with rapid ventricular response Inferior infarct , age undetermined Nonspecific T wave abnormality Abnormal ECG When compared with ECG of 05-Feb-2024 15:27, Minimal criteria for Anterior infarct are no longer Present Inferior infarct is now Present Confirmed by Telly Plasencia ([id number]) on 02/07/2024 5:37:12 AM Chest X-Ray Date: 02/05/24 XR chest 1V portable HISTORY: 73 years-old Female Chest pain, nonspecific COMPARISON: 12/20/2022 TECHNIQUE: AP view of the chest FINDINGS: Cardiac silhouette is mildly enlarged. Median sternotomy with thoracic aortic graft. Right axillary surgical clips. No pneumothorax, pleural effusion or airspace consolidation. IMPRESSION: No acute process of the chest.
--- NOTE | 2024-02-07 14:00 | Post Operative Brief Note ---
Cardiology Brief Post Op Date of Surgery February 07, 2024 Pre & Post Diagnosis Operation Date: 02/07/24 12:00 Procedure Preprocedure diagnosis: Rule out left atrial appendage thrombus, symptomatic atrial fibrillation Postprocedure diagnosis: Transesophageal echocardiogram negative for left atrial or left atrial appendage thrombus successful conversion to sinus rhythm Transesophageal echocardiogram guided direct-current cardioversion procedure note the patient's vital signs were monitored via the standard fashion. After informed consent was obtained a timeout was performed the patient received pro pofol and lidocaine as administered by the anesthesia service. A focused, goal-directed transesophageal echocardiogram was performed. Trace to mild mitral regurgitation is present. The left atrial appendage was visualized with no evidence of left atrial or left atrial appendage thrombus. The patient then underwent direct-current cardioversion receiving 150 J of synchronized biphasic energy x 1 dose with successful conversion to sinus rhythm. Recommendations: Continue metoprolol succinate 25 mg daily Continue Coumadin, 7.5 mg daily, goal INR 23 Patient successfully completes the Po sedation recovery protocol, can perhaps be discharged later today. Entertainment Production Professional Perry Macedo DO Salvage Engineering Technician Janny Kennedy, DARRYL Estimated Blood Loss 0 Findings Consistent with Post-Op Diagnosis Anesthesia Type MAC Complications none
[2024-02-07] MEDS: BENZOCAINE/TETRACAIN/BUTAM 50 APPLN/5 GM CAN EXT ONE (14:27)
--- NOTE | 2024-02-07 14:58 | Anesthesiology Progress Note ---
Date of Service February 07, 2024 Anesthesia Post Procedure Vital Signs Vital Signs: Temp Pulse Pulse Pulse Resp BP Pulse Ox 02/07/24 14:50 36.7 C 68 17 109/63 98 02/07/24 14:25 37.1 C 68 16 130/69 92 02/07/24 14:08 74 14 94/64 L 95 02/07/24 10:48 37 C 100 H 15 132/90 92 02/07/24 07:42 36.6 C 79 18 143/76 H 92 02/07/24 07:36 86 02/07/24 03:51 36.6 C 79 18 125/81 92 02/06/24 23:03 36.8 C 86 18 151/78 H 91 02/06/24 21:50 87 02/06/24 19:42 36.7 C 91 H 18 142/81 H 91 02/06/24 19:15 02/06/24 16:51 98 H 143/72 H 02/06/24 16:15 36.9 C 104 H 18 126/90 92 02/06/24 16:12 111 H 143/72 H 02/06/24 15:37 127 H 02/06/24 15:15 36.5 C 97 H 18 125/73 91 O2 Del Method 02/07/24 14:50 Room Air 02/07/24 14:25 Room Air 02/07/24 14:08 Room Air 02/07/24 10:48 Room Air 02/07/24 07:42 Room Air 02/07/24 07:36 02/07/24 03:51 Room Air 02/06/24 23:03 Room Air 02/06/24 21:50 02/06/24 19:42 Room Air 02/06/24 19:15 Room Air 02/06/24 16:51 02/06/24 16:15 Room Air 02/06/24 16:12 02/06/24 15:37 02/06/24 15:15 Room Air Transfer of Care Handoff Completed per policy Notes Mental Status: alert / awake / arousable and participated in evaluation Patient Amnestic to Procedure: Yes Nausea / Vomiting: adequately controlled Pain: adequately controlled Airway Patency, RR, SpO2: stable & adequate BP & HR: stable & adequate Hydration State: stable & adequate Anesthetic Complications: no major complications apparent and Pt Satisfied with anesthetic care
--- NOTE | 2024-02-07 15:39 | Electrocardiogram Report ---
Test Reason : Blood Pressure : */* mmHG Vent. Rate : 67 BPM Atrial Rate : 67 BPM P-R Int : 154 ms QRS Dur : 80 ms QT Int : 404 ms P-R-T Axes : 34 -1 65 degrees QTcB Int : 426 ms Normal sinus rhythm with sinus arrhythmia Inferior infarct (cited on or before 30-Jan-2011) Nonspecific T wave abnormality Abnormal ECG When compared with ECG of 06-Feb-2024 10:11, Sinus rhythm has replaced Atrial fibrillation Vent. rate has decreased by 48 bpm Nonspecific T wave abnormality now evident in Inferior leads Nonspecific T wave abnormality now evident in Anterior leads Confirmed by Telly Plasencia ([id number]) on 02/07/2024 3:39:15 PM Referred By: Alex Crisostomo Confirmed By: Telly Plasencia
--- NOTE | 2024-02-07 16:39 | Discharge Summary ---
Date of Service February 07, 2024 Admission HPI Per Admitting Provider She is a 73-year-old female with significant past medical history of she is a 73-year-old female with significant past medical history of paroxysmal atrial fibrillation,DVT with pulmonary emboli DVT with pulmonary emboli,, sarcoidosis, history of stroke, hypothyroidism and hyperlipidemia and also history of thoracic aortic aneurysm repair and apparently noted to have irregular and high heart rate in her Watch since yesterday. She contacted her doctor's office and was advised to come to the emergency room. Denies any palpitation, chest pain or discomfort and no dizziness. She has been taking her metoprolol succinate 12.5 mg daily and also has been taking her other medications regularly. She denies any fever and or chills and does not have any problem with urine or bowel habit. She received 2 doses of intravenous metoprolol 5 mg x 2 with some improvement of her heart rate was admitted to telemetry unit for continuation of care. Admission Exam Per Admitting Provider Physical Exam: Lying in bed without any apparent distress Constitutional: average body habitus; not ill appearing Eyes: PERRL, conjunctivae normal, anicteric sclerae ENMT: external ear and nose normal, oropharynx normal Neck: trachea midline, no thyromegaly Respiratory: no respiratory distress Auscultation: lungs clear to auscultation bilaterally Cardiovascular: Rate/Rhythm: regular rate, + tachycardic and + irregularly irregular Heart Sounds: normal S1 and normal S2; no murmur Extremities: + edema (Trace edema bilaterally) Gastrointestinal (Abdomen): Inspection/Auscultation: normal bowel sounds; abdomen not distended Percussion/Palpation: abdomen soft; abdomen nontender Musculoskeletal: No acute arthritis involving any of the joint Neurologic: normal touch/pain/proprioception and moves all extremities; no focal motor deficits Psychiatric: A+Ox3, euthymic affect Lymphatic: no cervical or axillary lymphadenopathy Principal Diagnosis Atrial fibrillation w/ RVR Discharge Exam Physical Exam: Constitutional: WD/WN F in NAD Eyes: EOMI, conjunctivae normal, anicteric sclerae ENMT: external ear and nose normal, oropharynx normal Neck: supple Respiratory: no respiratory distress Auscultation: lungs clear to auscultation bilaterally Cardiovascular: regular ,no murmur Gastrointestinal (Abdomen): normal bowel sounds; abdomen not distended Percussion/Palpation: abdomen soft; abdomen nontender Musculoskeletal: moves extremities Neurologic: awake, alert, oriented, answers appropriately, no facial asymmetry, moves extremities Psychiatric: A+Ox3, euthymic affect Discharge Data Allergies Allergy/AdvReac Type Severity Reaction Status Date / Time Iodinated Contrast Media Allergy Mild Rash Verified 02/05/24 18:44 hydrocodone Allergy Unknown other Verified 02/05/24 18:44 levofloxacin Allergy Unknown RASH Verified 02/05/24 18:44 propoxyphene Allergy Unknown UNKNOWN. Verified 02/05/24 18:44 azithromycin AdvReac Intermediate Deafness Verified 02/05/24 18:44 for several weeks hydromorphone AdvReac Intermediate Hallucinati Verified 02/05/24 18:44 ons oxycodone AdvReac Mild other Verified 02/05/24 18:44 Consultations 02/05/24 18:09 ED Decision to Admit Stat 02/05/24 18:55 Consult Cardiology Routine 02/07/24 08:33 Consult Anesthesiology Routine Procedures Performed Operation Date: 02/07/24 12:00 Actual Procedures p Echo Transesophageal - DO alvin Chavez Cardioversion - DO alvin Chavez Doppler Echo Limited/Follow Up - DO alvin Chavez Echo Color Flow - Perry Macedo DO Hospital Course (1) Atrial fibrillation with rapid ventricular response: History of paroxysmal atrial fibrillation and presented with rapid irregular heart rate which was seen in [employer] Watch without any significant symptoms She received 2 doses of Lopressor 5 mg each in the emergency room with some improvement of the heart rate Has been on 12.5 mg metoprolol succinate daily. IV heparin and dilt drip stopped metoprolol increased to 25 mg bid Cardiology consulted, pt is s/p cardioversion today 02/06, doing well (2) Sarcoidosis: History of sarcoidosis No acute symptoms to suggest flare up of sarcoidosis (3) DVT (deep venous thrombosis): History of DVT and pulmonary embolism on Coumadin monitor INR (4) Pulmonary emboli: (5) Hypothyroidism: - continue home thyroid medications TSH 1.8 Total Time Total Time Spent Total Time Spent (In Minutes): 40 Discharge Plan Discharge Items Patient Disposition: Home - Self-Care Reason For Visit: AF WITH RVR Discharge Diagnosis: Atrial fibrillation w/ RVR Activity: Per Instructions section Non-emergency contact: Primary Care Provider and Director Patient Call non-emergency contact if: you have any medication questions and your symptoms worsen Follow-up/Referrals: Alex Crisostomo MD [Primary Care Provider] - (Date & Time 02/14/2024 11:00 AM Provider Yanci Wright MD Department General Internal Medicine [facility] ) Diet: Heart Healthy Addtl Attending Provider Instructions: Follow up with primary care doctor and operating room specialist. Take metoprolol succinate 25 mg twice a day. Pending Studies at Discharge: No Stand-Alone Forms: My [facility], Smoking Cessation Medications and DC Order Prescriptions: New metoprolol succinate 25 mg Tablet Extended Release 24 Hr 25 mg PO BID Qty: 60 0RF Continued L. acidophilus/Bifid. animalis 31 billion cell capsule 1 cap PO DAILY coenzyme Q10 100 mg capsule 100 mg PO .TAKE DIRECTED. citalopram 20 mg tablet 20 mg PO QAM multivitamin [Daily Multi-Vitamin] Tablet 1 tab PO DAILY rosuvastatin 5 mg tablet 5 mg PO Q OTHER DAY Rx Instructions: 5 mg PO Every other day; red yeast rice 600 mg tablet 600 mg PO QAM warfarin [Jantoven] 5 mg tablet 7.5 mg PO DAILY levothyroxine 100 mcg tablet 100 mcg PO DAILYBB pregabalin 25 mg capsule 25 mg PO AMHS turmeric root extract 500 mg Capsule 500 mg PO QAM aspirin [Aspir-Low] 81 mg Tablet,Delayed Release (Dr/Ec) 81 mg PO DAILY omega-3 fatty acids 1,250 mg Capsule 1,250 mg PO DAILY coQ10 (ubiquinol) 200 mg Capsule 200 mg PO DAILY melatonin 10 mg Tablet 10 mg PO HS Discontinued metoprolol succinate 25 mg tablet extended release 24 hr 12.5 mg PO QAM Rx Instructions: 1/2 tablet dose Discharge Orders: Discharge Order (Routine); Ordered 02/07/24 Ordered By: Delbert Lopez Admission Data Admit Date/Time: 02/05/24 18:55 Attending Provider: Delbert Lopez Admit Provider: Nisha Lion Primary Care Provider: Alex Crisostomo Other Providers: Nisha Lion; Paty Cordoba; Perry Macedo Sheldon D; Wagner Manuel; Geoff Covarrubias; Abhi Bolaños; Roseanna Castanon; Phoebe Hansen; Gilda Pina; Paty Gaston; Barrett Simons; Elio Gonzalez; Imelda Tello; Alma Murillo; Aniyah Carrillo; Kareem Isbell; Silas Will; Ewa Almonte; Naomi Moreno; Tom Tyler.
[2024-02-07 16:56] VITALS: RESP 16; TEMP 99; O2SAT 93
[2024-02-07 17:00] VITALS: BP 124/75; PULSE 100
== END 2024-02-07 17:30 | disposition home or self-care (01) | DRG 309 ==
LOC: ED 15:03 → 2S 18:55 → SUATTDRO 18:55 → 2S 21:17

== ENCOUNTER 2024-11-21 10:43 | Inpatient (IN) ==
--- NOTE | 2024-11-21 11:05 | Emergency Department Note ---
Impression & Plan Chest pain ED Provider Note NAME: ASHANTI GARCIA AGE: 74 SEX: F : 1950 ARRIVES VIA: Walk-In INFORMANT: Patient, ED PROVIDER(S): Hayden Heaton DO CHIEF COMPLAINT: Chest pain HPI: The patient is a 74-year-old female who presented to the emergency department for an evaluation. The patient states that over the last 24 hours she has been experiencing pain. She notices back pain as well as jaw pain. She is also noticed some left-sided chest pain. The patient has a history of an aortic aneurysm repair. She recently had a CTA of the chest abdomen pelvis done. The patient does take warfarin. She has a history of stroke in the past. She denies having any abdominal pain or lower extremity pain at this time. She did have some cramping in her left leg over the last couple days. The patient denies having any trauma. ROS: See above HPI for pertinent positives & negatives. A total of 10 systems reviewed and were otherwise negative. PAST MEDICAL HISTORY: See Below PAST SURGICAL HISTORY: See Below FAMILY HISTORY: See Below SOCIAL HISTORY: See Below HOME MEDICATIONS: See Below ALLERGIES: See Below VITALS: See Below PHYSICAL EXAMINATION: GENERAL: The patient is awake and alert. The patient is comfortable. EYES: The conjunctivae are clear. The pupils are round and reactive. EARS, NOSE, MOUTH AND THROAT: The nose is without any evidence of any deformity. NECK: The neck is nontender and supple. RESPIRATORY: Normal respiratory effort is noted there is no evidence of wheezing rhonchi or rales CARDIOVASCULAR: Regular rate and rhythm noted there no murmurs rubs or gallops normal S1 normal S2. GASTROINTESTINAL: The abdomen is soft. Abdomen is nontender. MUSCULOSKELETAL/EXTREMITIES: There is no evidence of gross deformity full range of motion is noted in the hips and shoulders. SKIN: There is no obvious evidence of any rash. There are no petechiae, pallor or cyanosis noted. Pulses are symmetric in both wrist. NEUROLOGIC: Patient is awake alert and oriented x3. MEDICAL DECISION MAKING: The patient is a 74-year-old female who presented to the emergency department for an evaluation of chest pain. The patient describes anterior chest pain as well as jaw pain. The patient has a history of thoracic aorta pathology. She has had surgery in the past. She had a recent CT angiography of the chest abdomen pelvis. This was done through the [employer] system. I was able to review this report from November 18. The patient started having symptoms after this CT was done. I discussed the patient's laboratory and radiographic studies with her. She was treated with pain medication in the emergency department. On reevaluation she was feeling much better. Given her history and comorbidities I did feel the patient would be a better candidate for inpatient management. For this reason I discussed her condition with the on-call [facility] Hospitalist. They have agreed to evaluate the patient in the emergency department for further management and disposition. Triage Nursing notes reviewed. Prior medical records reviewed Vital Signs: reviewed and remarkable for no significant abnormalities Differential diagnosis: Cardiac ischemia, aortic dissection, pulmonary embolism, pneumothorax, pneumonia, pericarditis, myocarditis, esophageal rupture, GERD, cholecystitis, pancreatitis, musculoskeletal, as well as other pathologies. ER treatment provided: See below Diagnostics interpreted by me: ECG: EKG was obtained in the emergency department. My interpretation is normal sinus rhythm at 73 bpm. There is no ectopy. Nonspecific ST and T wave abnormalities are noted. This was compared to a tracing from February 07, 2024. No changes were noted. Cardiac Monitoring: An order was placed for continuous cardiac monitoring. The monitor shows a rate of 61 bpm with sinus rhythm. Laboratory studies: As stated above and show below. Imaging studies: See below. Radiographic imaging was reviewed by myself Consultation(s): I discussed this case with Dr. Yen who is on-call for the [facility] Hospitalist. He would prefer a CT angiography be obtained prior to evaluating the patient. Past Med/Surg History Problem List (Updated 11/21/24 @ 14:53 by Hayden Heaton DO) Chest pain (Acute) Depression History of CVA (cerebrovascular accident) HTN, goal below 130/80 Thoracic aortic aneurysm Nonobstructive atherosclerosis of coronary artery Hypothyroidism Chest pain (Acute) Stroke DVT (deep venous thrombosis) Pulmonary emboli Dizziness Medical History Encounter for pre-operative examination Peripheral neuropathy Esophageal reflux Chronic bronchitis Cerebral artery occlusion with cerebral infarction Breast cancer MTHFR mutation Personal history of pulmonary embolism Personal history of DVT (deep vein thrombosis) PAF (paroxysmal atrial fibrillation) Atrial fibrillation with rapid ventricular response Sarcoidosis Cerebral embolism without cerebral infarction (08/06/12) Benign tumor of kidney Aorta aneurysm Surgical History History of heart surgery History of bilateral mastectomy History of bladder surgery 2009 History of heart surgery aorta - 2011 Family History Other Family history non-contributory Social History Smoking Status: Never smoker Second Hand Exposure: No; Do You Dip or Chew Tobacco: No; Hx Alcohol Use: No Hx Substance Use: No Preferred Language: Swiss Communication Ability: Effective Asbestos Abatement Technician Required: No Beliefs That Will Affect Care: None marital status: Current Living Situation: Spouse current occupational status: retired How many Children do You have: 5 Feels Safe at Home: Yes Assistive Devices: None Allergies Allergies Allergy/AdvReac Type Severity Reaction Status Date / Time nickel Allergy Severe Avoids all Unverified 11/21/24 13:26 metals. Diagnosed w/ MTHFR gene mutation Iodinated Contrast Media Allergy Mild Rash Verified 11/21/24 13:26 hydrocodone Allergy Unknown other Verified 11/21/24 13:26 levofloxacin Allergy Unknown RASH Verified 11/21/24 13:26 propoxyphene Allergy Unknown UNKNOWN. Verified 11/21/24 13:26 azithromycin AdvReac Intermediate Deafness Verified 11/21/24 13:26 for several weeks hydromorphone AdvReac Intermediate Hallucinati Verified 11/21/24 13:26 ons oxycodone AdvReac Mild other Verified 11/21/24 13:26 Home Meds Home Medications Medication Instructions Recorded Confirmed Lactobacillus 1 cap PO DAILY 09/08/19 11/21/24 acidophilus-Bifidobac.animalis 31 billion cell capsule citalopram 20 mg tablet 20 mg PO QAM 09/08/19 11/21/24 red yeast rice 600 mg tablet 600 mg PO QAM 09/10/19 11/21/24 warfarin 5 mg tablet (Jantoven) 5 mg PO 4XWK 04/27/20 11/21/24 aspirin 81 mg tablet,delayed 81 mg PO DAILY 02/05/24 11/21/24 release coQ10 (ubiquinol) 200 mg capsule 200 mg PO DAILY 02/05/24 11/21/24 levothyroxine 100 mcg tablet 100 mcg PO DAILYBB 02/05/24 11/21/24 melatonin 10 mg tablet 10 mg PO HS 02/05/24 11/21/24 omega-3 fatty acids 1,250 mg 1,250 mg PO DAILY 02/05/24 11/21/24 capsule turmeric root extract 500 mg 500 mg PO QAM 02/05/24 11/21/24 capsule Moringa oleifera 500 mg capsule 500 mg PO QAM 11/21/24 11/21/24 ascorbic acid (vitamin C) 500 mg 500 mg PO DAILY 11/21/24 11/21/24 tablet (Vitamin C) diphenhydramine 25 1 tab PO HS PRN Sleep 11/21/24 11/21/24 mg-acetaminophen 500 mg tablet (Tylenol PM Extra Strength) metoprolol succinate 25 mg 12.5 mg PO BID 11/21/24 11/21/24 tablet,extended release 24 hr multivitamin with folic acid 400 1 tab PO DAILY 11/21/24 11/21/24 mcg tablet warfarin 5 mg tablet (Jantoven) 7.5 mg PO 3XWK 11/21/24 11/21/24 Results & Data (ED) Vital Signs Vital Signs - 24 hr 11/21/24 10:47 11/21/24 11:06 11/21/24 11:37 Temperature 37.1 C Temperature Source Temporal Artery Scan Pulse Rate 79 66 72 Pulse Rate from SpO2 Sensor Pulse Rhythm Regular Respiratory Rate 18 18 Blood Pressure 167/84 H Blood Pressure Mean 111 Pulse Oximetry 95 90 Oxygen Delivery Method Room Air Room Air Sepsis New/Unexplained Change in Mental Status No Sepsis Action Taken by Nursing No Action Required 11/21/24 11:49 11/21/24 12:00 11/21/24 12:00 Temperature Temperature Source Pulse Rate 68 61 61 Pulse Rate from SpO2 Sensor 62 Pulse Rhythm Respiratory Rate 17 14 13 Blood Pressure 143/76 H 139/78 Blood Pressure Mean 94 102 Pulse Oximetry 91 91 91 Oxygen Delivery Method Room Air Room Air Sepsis New/Unexplained Change in Mental Status Sepsis Action Taken by Intermediate Medications Current Medication List: was personally reviewed by me Laboratory Data Attestation: I reviewed the patient's lab results. 11/21/24 11:00 11/21/24 11:00 Lab Results 11/21/24 Range/Units 11:00 WBC 7.63 (4.8-10.8) K/ul RBC 4.71 (4.20-5.40) M/uL Hgb 13.5 (12.0-16.0) g/dl Hct 41.5 (37.0-47.0) % MCV 88.1 (80.0-100.0) fL MCH 28.7 (25.0-34.0) pg MCHC 32.5 (32.0-36.0) g/dL RDW Std Deviation 46.8 H (36.4-46.3) fL RDW Coeff of Mita 14.5 (11.5-14.5) % Plt Count 208 (130-400) K/uL MPV 9.4 (9.4-12.4) fL Immature Gran % (Auto) 0.3 % Neut % (Auto) 52.9 % Lymph % (Auto) 32.6 % Tucker % (Auto) 9.6 % Eos % (Auto) 3.8 % Baso % (Auto) 0.8 % Neut # (Auto) 4.04 (1.40-6.50) K/uL Lymph # (Auto) 2.49 (1.20-3.40) K/uL Tucker # (Auto) 0.73 H (0.11-0.59) K/uL Eos # (Auto) 0.29 (0.00-0.50) K/uL Baso # (Auto) 0.06 (0.00-0.20) K/uL Immature Gran # (Auto) 0.02 (0.01-0.20) K/uL PT 21.4 H (9.0-12.0) Seconds INR 2.1 H (0.9-1.1) APTT 36 H (21-31) Seconds PTT Ratio 1.3 Sodium 138 (136-145) mmol/L Potassium 4.2 (3.5-5.1) mmol/L Chloride 101 (98-107) mmol/L Carbon Dioxide 30 (21-32) mmol/L Anion Gap 7 (3-11) BUN 25 H (6-23) mg/dl Creatinine 1.19 (0.6-1.2) mg/dl Est Cr Clr Drug Dosing Not Reportable eGFR 47.68 BUN/Creatinine Ratio 21.0 H (10-20) Glucose 99 (70-99(Fasting)) mg/dl Calcium 9.7 (8.6-10.3) mg/dl Total Bilirubin 0.6 (0.2-1.0) mg/dl AST 18 (13-39) U/L ALT 13 (7-52) U/L Alkaline Phosphatase 58 (34-104) U/L Troponin I High Sens 6.2 (0-14) pg/ml Total Protein 7.1 (6.0-8.3) gm/dl Albumin 3.9 (3.4-5.0) gm/dl Globulin 3.2 (2.5-4.0) gm/dl Albumin/Globulin Ratio 1.2 (0.9-2) Lipase 25 (11-82) U/L Administered Medications Discontinued Medications Aspirin (Aspirin Chew 324 Mg) 324 mg PO NOW STA Stop: 11/21/24 11:00 Last Admin: 11/21/24 11:10 Dose: 324 mg Documented By: LARISSA Diphenhydramine HCl (Diphenhydramine 50 Mg/Ml Vial) 50 mg IV ONE ONE Stop: 11/21/24 13:57 Last Admin: 11/21/24 14:31 Dose: 50 mg Documented By: YARI Fentanyl Citrate (Fentanyl Citrate Pf 100 Mcg/2 Ml Vial) 50 mcg IV NOW STA Stop: 11/21/24 11:00 Last Admin: 11/21/24 11:10 Dose: 50 mcg Documented By: LARISSA Methylprednisolone (Methylprednisolone 125 Mg/2 Ml Vial) 40 mg IV NOW ONE Stop: 11/21/24 13:57 Last Admin: 11/21/24 14:31 Dose: 40 mg Documented By: YARI Ondansetron HCl (Ondansetron Inj 2 Mg/Ml 2 Ml Vial) 4 mg IV NOW STA Stop: 11/21/24 11:00 Last Admin: 11/21/24 11:10 Dose: 4 mg Documented By: LARISSA Imaging Data Attestation: I personally reviewed and interpreted this imaging study as follows: My Impression: 1 view chest x-ray was obtained in the emergency department. My interpretation is no free air or definite infiltrate, final report below. Radiologist's Impression: Chest X-Ray 11/21/24 10:59 XR chest 1V portable CLINICAL HISTORY: Chest pain, nonspecific COMPARISON STUDY: Chest radiograph February 04, 2021. Chest CT June 26, 2018. FINDINGS: Right axillary surgical clips, median sternotomy wires and thoracic aortic stent graft are in place. There is no pneumothorax or pleural effusion. There is no evidence for pulmonary edema. There is no consolidation to suggest pneumonia. Mild prominence of the left mediastinal contour along the aortic arch and descending thoracic aorta has developed. IMPRESSION: Thoracic aortic stent graft in place. Mild prominence of the left mediastinal contour along the aortic arch and descending thoracic aorta, as described above. This may be technical however, if chest pain, a CTA of the chest with without contrast could be obtained to exclude aneurysmal dilatation or other aortic pathology. ACT 112: Negative or not required by law. Electronically signed by: Kyle Varner M.D. 11/21/2024 11:21 AM Discharge Plan Visit Data Chief Complaint: Chest Pain Stated Complaint: PAIN IN BACK & CHEST, AFIB ED Provider: Hayden Heaton Discharge Problem: Chest pain Patient Disposition: Being Evaluated by Hospitalist Condition: Fair Forms Stand Alone Forms: My [facility] [employer] Prescriptions Prescriptions: No Action L. acidophilus/Bifid. animalis 31 billion cell capsule 1 cap PO DAILY citalopram 20 mg tablet 20 mg PO QAM red yeast rice 600 mg tablet 600 mg PO QAM warfarin [Jantoven] 5 mg tablet 5 mg PO 4XWK Rx Instructions: Sun/Mon/Wed/Fri in the evenings levothyroxine 100 mcg tablet 100 mcg PO DAILYBB turmeric root extract 500 mg Capsule 500 mg PO QAM aspirin 81 mg Tablet,Delayed Release (Dr/Ec) 81 mg PO DAILY omega-3 fatty acids 1,250 mg Capsule 1,250 mg PO DAILY coQ10 (ubiquinol) 200 mg Capsule 200 mg PO DAILY melatonin 10 mg Tablet 10 mg PO HS ascorbic acid (vitamin C) [Vitamin C] 500 mg Tablet 500 mg PO DAILY warfarin [Jantoven] 5 mg tablet 7.5 mg PO 3XWK Rx Instructions: Tu/Th/Sat in the evenings diphenhydramine-acetaminophen [Tylenol PM Extra Strength] 25-500 mg Tablet 1 tab PO HS PRN (Reason: Sleep) multivitamin with folic acid 400 mcg Tablet 1 tab PO DAILY Moringa oleifera 500 mg Capsule 500 mg PO QAM metoprolol succinate 25 mg tablet extended release 24 hr 12.5 mg PO BID Referrals Referrals: Alex Crisostomo MD [Primary Care Provider] -
[2024-11-21] MEDS: ASPIRIN CHEW 324 MG PO STA (11:10)
[2024-11-21] MEDS: ONDANSETRON INJ 2 MG/ML 2 ML VIAL IV STA (11:10)
[2024-11-21 11:17] LABS: Hematocrit (blood only) 41.5 % (37.0-47.0); Hemoglobin 13.5 g/dl (12.0-16.0); Immature Granulocytes # (auto) 0.02 K/uL (0.01-0.20); Immature Granulocytes % (auto) 0.3 %; Mean Corpuscular Hemoglobin 28.7 pg (25.0-34.0); Mean Corpuscular Volume 88.1 fL (80.0-100.0); Platelet Count 208 K/uL (130-400); RDW Standard Deviation 46.8 fL (36.4-46.3); Red Blood Count 4.71 M/uL (4.20-5.40); White Blood Count 7.63 K/ul (4.8-10.8)
--- NOTE | 2024-11-21 11:23 | XRay Report ---
XR chest 1V portable CLINICAL HISTORY: Chest pain, nonspecific COMPARISON STUDY: Chest radiograph February 04, 2021. Chest CT June 26, 2018. FINDINGS: Right axillary surgical clips, median sternotomy wires and thoracic aortic stent graft are in place. There is no pneumothorax or pleural effusion. There is no evidence for pulmonary edema. The re is no consolidation to suggest pneumonia. Mild prominence of the left mediastinal contour along th e aortic arch and descending thoracic aorta has developed. IMPRESSION: Thoracic aortic stent graft in place. Mild prominence of the left mediastinal contour olivia ng the aortic arch and descending thoracic aorta, as described above. This may be technical however, if chest pain, a CTA of the chest with without contrast could be obtained to exclude aneurysmal dilat ation or other aortic pathology. ACT 112: Negative or not required by law. Electronically signed by: Kyle Varner M.D. 11/21/2024 11:21 AM
[2024-11-21 11:35] LABS: Alanine Aminotransferase 13 U/L (7-52); Albumin Globulin Ratio 1.2 (0.9-2); Alkaline Phosphatase 58 U/L (34-104); Anion Gap 7 (3-11); Bilirubin,Total 0.6 mg/dl (0.2-1.0); Blood Urea Nitrogen 25 mg/dl (6-23); Calcium 9.7 mg/dl (8.6-10.3); Carbon Dioxide 30 mmol/L (21-32); Chloride 101 mmol/L (98-107); Globulin 3.2 gm/dl (2.5-4.0); Glucose 99 mg/dl (70-99(Fasting)); Lipase 25 U/L (11-82); Potassium 4.2 mmol/L (3.5-5.1); Sodium 138 mmol/L (136-145); Total Protein 7.1 gm/dl (6.0-8.3)
[2024-11-21 11:49] LABS: INR 2.1 (0.9-1.1); Partial Thromboplastin Time 36 Seconds (21-31); Prothrombin Time 21.4 Seconds (9.0-12.0)
--- NOTE | 2024-11-21 13:07 | Electrocardiogram Report ---
Test Reason : Blood Pressure : */* mmHG Vent. Rate : 73 BPM Atrial Rate : 73 BPM P-R Int : 174 ms QRS Dur : 82 ms QT Int : 392 ms P-R-T Axes : 34 -8 64 degrees QTcB Int : 431 ms Normal sinus rhythm Inferior infarct (cited on or before 30-Jan-2011) Abnormal ECG When compared with ECG of 07-Feb-2024 15:05, No significant change was found Confirmed by Hayden Armstrong ([id number]) on 11/21/2024 1:06:31 PM Referred By: REFERRED SELF Confirmed By: Hayden Armstrong
[2024-11-21] MEDS: diphenhydrAMINE 50 MG/ML VIAL IV ONE (14:31)
[2024-11-21] MEDS: OPTIRAY 320 125ml IV ONE (15:00)
--- NOTE | 2024-11-21 15:27 | CT Scan Report ---
CT angiogram with IV contrast History: Chest pain COMPARISON: None TECHNIQUE: CT angiography of the chest was performed without IV contrast followed by IV contrast, including 3D post processing CTA image reconstruction. Dose reduction techniques were achieved by using automatic exposure control and/or adjustment of mA and/or kV according to patient size and/or use of iterative reconstruction technique. FINDINGS: Diagnostic quality: Adequate Findings of ascending thoracic aorta repair, with a stent in the proximal descending thoracic aorta were also seen on the noncontrast CT from June 26, 2018. No significant change in the excluded, saccular, nonenhancing aneurysmal outpouching arising from the arch, measuring 4.4 x 3.8 cm in diameter, since 2019. In the proximal descending thoracic aorta, there is an excluded aneurysmal outpouching, which demonstrates some enhancement outside of the stent, possibly representing retrograde flow, through communication with the distal lumen. There is aneurysmal dilatation of the mid descending thoracic aorta beyond the stent, having a diameter of 3.8 cm. There is no evidence for acute dissection in the chest. There is no evidence for pulmonary embolism. The heart is not enlarged. There is no pericardial effusion. There are no abnormally enlarged hilar or mediastinal lymph nodes. The central tracheobronchial tree is clear. The lungs are clear. There is no pleural effusion. Limited visualized upper abdomen. No destructive osseous changes are seen. IMPRESSION: Ascending thoracic aorta repair and descending aortic stent, as above. Aneurysmal dilatation of the thoracic aorta beyond the stent. No evidence for acute dissection. Electronically signed by Farrukh Fontanez 11-21-2024 3:26 PM
--- NOTE | 2024-11-21 15:31 | CT Scan Report ---
EXAMINATION: CT angiogram of the abdomen and pelvis performed after the administration of IV contrast TECHNIQUE: Helical CT images from the lung bases through the symphysis pubis were obtained with contrast. Coronal and sagittal reformatted images were generated at a workstation for further assessment. Dose reduction techniques were achieved by using automatic exposure control and/or adjustment of mA and/or kV according to patient size and/or use of iterative reconstruction technique. COMPARISON: None HISTORY: Abdominal pain FINDINGS: Lower chest: No consolidation. No pleural effusion or pneumothorax. Liver: No suspicious liver lesions. Portal veins appear patent. Gallbladder: No gallstones. No evidence of acute cholecystitis. Spleen: Normal size. Pancreas: No suspicious pancreatic lesions. The pancreatic duct is not dilated. Adrenal glands: No adrenal nodules. Kidneys: No hydronephrosis or obstructing renal stones. Few small left renal cysts. Bladder / Pelvic organs: Unremarkable. Bowel: No bowel obstruction. No abnormal bowel wall thickening. The appendix is unremarkable. Lymph nodes: No retroperitoneal, mesenteric, or pelvic lymphadenopathy. Peritoneum / Retroperitoneum: No free fluid or air within the abdomen. Vessels: No infrarenal aortic aneurysm. There are moderate aortoiliac calcifications. The major mesenteric branch vessels of the aorta, as well as the renal arteries, are patent. Bones and soft tissues: No suspicious lesion in the bones. Small right sided spigelian type fatty hernia. There is no bowel herniation. IMPRESSION: No acute aortic pathology. Electronically signed by Farrukh Fontanez 11-21-2024 3:30 PM
[2024-11-21] MEDS ORDERED: ACETAMINOPHEN 325 MG TAB PO PRN (17:20)
[2024-11-21] MEDS ORDERED: ALUMINUM/MAGNESIUM SUSP 30 ML UDC PO PRN (17:20)
[2024-11-21] MEDS ORDERED: POLYETHYLENE (MIRALAX) 17 GM PACK PO PRN (17:20)
[2024-11-21] MEDS ORDERED: MAGNESIUM HYDROXIDE SUSP 30 ML UDC PO PRN (17:20)
--- NOTE | 2024-11-21 17:34 | History & Physical Report ---
Date of Service November 21, 2024 Assessment & Plan (1) Chest pain: Plan Chest pain, rule out ACS versus aortic dissection Patient comes in with chest pain radiating to jaw and back, not relieved with ice and heat which she usually helps her chronic back pain. Admitting troponin WNL, EKG with no acute ST or T changes. Admitting CTA chest negative for aortic dissection. Patient states she cannot tolerate nitroglycerin due to headache. Trend troponin, get echo, telemetry monitoring. Cardiology consult.N.p.o. midnight. PAF/hypercoagulable state/history of PE: Continue with home Coumadin. Admitting INR of 2.1. Renal angiomyolipoma: noted in OP imaging, above, at left mid upper pole. IR eval come saturday. Other chronic medical conditions: Hypothyroidism, CAD, CVA, pulmonary sarcoidosis, reactive airway disease, hyperlipidemia, hypertensioncontinue with/resume home meds as and when able. DVT prophylaxis: Patient is on warfarin. Full code History of Present Illness Chief Complaint: Chest pain Primary Care Provider: Alex Crisostomo MD 74-year-old lady with PMH of thoracic aortic aneurysm s/p repair, allergy to IV contrast, abdominal aortic aneurysm, reactive airway disease, pulmonary embolism/PAF [s/p EDIE cardioversion Jan, 2024]/primary hypercoagulable state [MTHFR mutation, homozygous] on Coumadin, CAD, breast cancer, female stress incontinence, cervical and lumbar spinal stenosis, patent foramen ovale, CVA, pulmonary sarcoidosis, HLD, migraine, vocal cord paralysis [unilateral complete], basal cell carcinoma, melanoma of skin, insomnia, hypothyroidism due to acquired atrophy of thyroid, major depressive disorder, stage IIIa CKD presents to the ED with complaint of chest pain radiating to jaw and back since yesterday. initially she thought it was her usual back pain and tried ice and heat multiple times with no relief and hence she presented to the ED. Patient reports pain started while at rest, has been mostly constant, was initially associated with nausea. Pt reports improvement in chest pain after aspirin loading dose and fentanyl in the ED. Patient denies fever/sore throat/cough/belly pain/nausea/vomiting/diarrhea/pain or burning while passing urine. Patient denies smoking/alcohol/recreational drug use. Medications reviewed with patient and her at bedside. Plan of care discussed with the patient and her at bedside in detail, they voiced understanding. 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 Completion of the elephant trunk procedure with a sequentialendovascularstent beginning at the isthmusandextending to the distal descending aorta 02/2014. These procedures were performed at [facility]. Outpatient CTA chest/abdomen/pelvis from 11/18/2024: 1. Similar appearance of the descending thoracic aortic stent graft with contrast external to the distal end of the stent graft, extending superiorly alongside the stent graft. The descending aorta at this level previously measured 4.1 x 4.6 cm, now 4.6 x 5.2 cm. 2. Similar appearance of the excluded, thrombosed aneurysm measuring up to approximately 4.4 cm. 3. Similar postsurgical change about the ascending aortic and aortic arch. 4. Nearly 4 cm left mid upper pole renal angiomyolipoma. Recommend IR consultation for evaluation and potential treatment. Allergies Allergy/AdvReac Type Severity Reaction Status Date / Time nickel Allergy Severe Avoids all Unverified 11/21/24 13:26 metals. Diagnosed w/ MTHFR gene mutation Iodinated Contrast Media Allergy Mild Rash Verified 11/21/24 13:26 hydrocodone Allergy Unknown other Verified 11/21/24 13:26 levofloxacin Allergy Unknown RASH Verified 11/21/24 13:26 propoxyphene Allergy Unknown UNKNOWN. Verified 11/21/24 13:26 azithromycin AdvReac Intermediate Deafness Verified 11/21/24 13:26 for several weeks hydromorphone AdvReac Intermediate Hallucinati Verified 11/21/24 13:26 ons oxycodone AdvReac Mild other Verified 11/21/24 13:26 Home Medications Medication Instructions Recorded Confirmed Type Lactobacillus 1 cap PO DAILY 09/08/19 11/21/24 History acidophilus-Bifidobac.animalis 31 billion cell capsule citalopram 20 mg tablet 20 mg PO QAM 09/08/19 11/21/24 History red yeast rice 600 mg tablet 600 mg PO QAM 09/10/19 11/21/24 History warfarin 5 mg tablet (Jantoven) 5 mg PO 4XWK 04/27/20 11/21/24 History aspirin 81 mg tablet,delayed 81 mg PO DAILY 02/05/24 11/21/24 History release coQ10 (ubiquinol) 200 mg capsule 200 mg PO DAILY 02/05/24 11/21/24 History levothyroxine 100 mcg tablet 100 mcg PO DAILYBB 02/05/24 11/21/24 History melatonin 10 mg tablet 10 mg PO HS 02/05/24 11/21/24 History omega-3 fatty acids 1,250 mg 1,250 mg PO DAILY 02/05/24 11/21/24 History capsule turmeric root extract 500 mg 500 mg PO QAM 02/05/24 11/21/24 History capsule Moringa oleifera 500 mg capsule 500 mg PO QAM 11/21/24 11/21/24 History ascorbic acid (vitamin C) 500 mg 500 mg PO DAILY 11/21/24 11/21/24 History tablet (Vitamin C) diphenhydramine 25 1 tab PO HS PRN Sleep 11/21/24 11/21/24 History mg-acetaminophen 500 mg tablet (Tylenol PM Extra Strength) metoprolol succinate 25 mg 12.5 mg PO BID 11/21/24 11/21/24 History tablet,extended release 24 hr multivitamin with folic acid 400 1 tab PO DAILY 11/21/24 11/21/24 History mcg tablet warfarin 5 mg tablet (Jantoven) 7.5 mg PO 3XWK 11/21/24 11/21/24 History Past Med/Surg History Problem List (Updated 11/21/24 @ 14:53 by Hayden Heaton DO) Chest pain (Acute) Depression History of CVA (cerebrovascular accident) HTN, goal below 130/80 Thoracic aortic aneurysm Nonobstructive atherosclerosis of coronary artery Hypothyroidism Chest pain (Acute) Stroke DVT (deep venous thrombosis) Pulmonary emboli Dizziness Medical History Encounter for pre-operative examination Peripheral neuropathy Esophageal reflux Chronic bronchitis Cerebral artery occlusion with cerebral infarction Breast cancer MTHFR mutation Personal history of pulmonary embolism Personal history of DVT (deep vein thrombosis) PAF (paroxysmal atrial fibrillation) Atrial fibrillation with rapid ventricular response Sarcoidosis Cerebral embolism without cerebral infarction (08/06/12) Benign tumor of kidney Aorta aneurysm Surgical History History of heart surgery History of bilateral mastectomy History of bladder surgery 2010 History of heart surgery - 2011 Family History Other Family history non-contributory Social History Smoking Status: Never smoker Second Hand Exposure: No; Do You Dip or Chew Tobacco: No; Hx Alcohol Use: No Hx Substance Use: No Preferred Language: Korean Communication Ability: Effective Analyst Programmer Required: No Beliefs That Will Affect Care: None marital status: Current Living Situation: Spouse current occupational status: retired How many Children do You have: 5 Feels Safe at Home: Yes Assistive Devices: None Review of Systems Review of Systems: Negative otherwise mentioned in HPI. Physical Exam Physical Exam: GENERAL: Alert and oriented x3. NAD, on RA. HEENT: No pallor, no icterus. Pupils equal, round and reactive to light. Oral mucosa moist. NECK: No JVD, no neck masses. HEART: S1 and S2 heard. Regular rate and rhythm. No murmur, no gallop. Old healed midline sternotomy surgical scar noted. RESPIRATORY SYSTEM: Normal AP diameter. No accessory muscle use. No wheezing, no crackles. ABDOMEN: Soft, bowel sounds present, nontender, no distention. CENTRAL NERVOUS SYSTEM: No facial droop. Speech is clear. Obeys simple commands. Moves extremities. EXTREMITIES: No edema, no erythema seen. Results & Data Results & Data Vital Signs (Past 12 Hours) Vital Signs Temp Pulse Pulse Resp BP BP Pulse Ox 11/21/24 17:01 62 21 163/88 H 97 11/21/24 16:12 58 L 22 117/63 97 11/21/24 15:19 92 11/21/24 15:19 88 L 11/21/24 15:15 88 L 11/21/24 15:13 66 22 171/80 H 92 11/21/24 12:00 61 13 91 11/21/24 12:00 61 14 139/78 91 11/21/24 11:49 68 17 143/76 H 91 11/21/24 11:37 72 18 90 11/21/24 11:06 66 11/21/24 10:47 37.1 C 79 18 167/84 H 95 O2 Del Method O2 Flow Rate 11/21/24 17:01 Nasal Cannula 2 11/21/24 16:12 Room Air 11/21/24 15:19 Nasal Cannula 2 11/21/24 15:19 Room Air 11/21/24 15:15 Nasal Cannula 0 11/21/24 15:13 Room Air 11/21/24 12:00 11/21/24 12:00 Room Air 11/21/24 11:49 Room Air 11/21/24 11:37 Room Air 11/21/24 11:06 11/21/24 10:47 Room Air
[2024-11-21] MEDS ORDERED: diphenhydrAMINE Capsule 25 MG CAP PO PRN (21:16)
[2024-11-21] MEDS: METOPROLOL SUCC 25MG EXT REL TAB PO SCH (21:38)
[2024-11-21] MEDS: MELATONIN 3 MG TAB PO SCH (21:38)
[2024-11-21] MEDS: WARFARIN SOD 7.5 MG TAB PO SCH (21:52)
[2024-11-22] MEDS: LEVOTHYROXINE SODIUM 100 MCG TABLET PO SCH (05:24)
[2024-11-22 06:08] LABS: Hematocrit (blood only) 40.8 % (37.0-47.0); Hemoglobin 13.6 g/dl (12.0-16.0); Mean Corpuscular Hemoglobin 29.4 pg (25.0-34.0); Mean Corpuscular Volume 88.3 fL (80.0-100.0); Platelet Count 220 K/uL (130-400); RDW Standard Deviation 45.4 fL (36.4-46.3); Red Blood Count 4.62 M/uL (4.20-5.40); White Blood Count 6.42 K/ul (4.8-10.8)
[2024-11-22 06:32] LABS: Anion Gap 5.0 (3-11); Blood Urea Nitrogen 22.0 mg/dl (6-23); Calcium 9.6 mg/dl (8.6-10.3); Carbon Dioxide 29.0 mmol/L (21-32); Chloride 104.0 mmol/L (98-107); Creatinine Clr Calc Pharmacy 57.6 ml/min; Glucose 123.0 mg/dl (70-99(Fasting)); Magnesium 2.4 mg/dl (1.7-2.4); Potassium 4.8 mmol/L (3.5-5.1); Sodium 138.0 mmol/L (136-145)
[2024-11-22 06:43] LABS: INR 2.1 (0.9-1.1); Prothrombin Time 21.2 Seconds (9.0-12.0)
[2024-11-22] MEDS: CITALOPRAM 20 MG TAB PO SCH (08:34)
[2024-11-22] MEDS: ADVANCED PROBIOTIC 625 MG CAPSULE PO SCH (08:34)
[2024-11-22] MEDS: ASPIRIN 81 MG ECTAB PO SCH (08:34)
--- NOTE | 2024-11-22 09:34 | Cardiology Consultation ---
Date of Consultation November 22, 2024 Assessment & Plan (1) Chest pain: (2) HTN, goal below 130/80: Plan Assessment: 74 year old female with history of Ascending aortic aneurysm with prior repair and chronic back pain presents for acute onset back, chest and jaw pain. EKG with no acute changes. Troponin negative. Cardiology consulted for further assessment and recommendations. Plan: 1. chest pain: -Appears to initiate from the back, reproducible to palpation and radiate. Examined patient's back for any rashes. -EKG obtained during active episode shows no acute changes. Telemetry shows SR with no acute events. -Troponin negative -Obtain echocardiogram to assess overall structure and function. -CTA chest negative for any acute dissection -BP Well above target. Start Losartan 25mg PO QD. check labs in AM as current serum K is 4.8 -Further recommendations pending echo if appropriate. -Continue ASA, Wafarin and Toprol xl Case has been discussed with Dr. Pina. Further recommendations regarding plan of care as per her assessment. I spent a total of 50 minutes on the date of service in preparation, delivery, documentation of the care provided to the patient excluding any time spent in the performance of separately billed services. CLEMENTE Tellez [facility] Supervising Physician Co-Signing Physician Notes I have reviewed the advanced practitioner's documentation on the date of service referenced in note, and I agree with, and take responsibility for the plan of care. I spent a total of [30] minutes coordinating, documenting, and providing care for this patient excluding time spent in the performance of separately billed services or time spent by another provider. 74-year-old female History of hypertension, paroxysmal atrial fibrillation post cardioversion #2023, history of CVA left MCA distribution on anticoagulation, history of pulmonary embolism, homozygous MTHFR mutation, sarcoidosis, thoracic aortic aneurysm with prior repair ascending aortic aneurysm large pseudoaneurysm of the distal aortic arch post right subclavian side graft and replacement of the ascending aorta and arch with elephant trunk B on the left subclavian artery December 2010 followed at the [facility] presents with back and chest pain Patient underwent a routine CTA for monitoring of her aneurysm on midnight stay at [facility]. Later that night started having back pain radiating into the front Episodes occur randomly back pain starts at the back and radiates to the front. Also radiation to the neck and jaw. Patient underwent repeat CTA on 11 21 no evidence of acute dissection Episodes of back pain radiating into the chest. Troponins have been negative no acute EKG changes Echocardiogram normal ejection fraction without any wall motion abnormalities No evidence of acute coronary syndrome continue with current medical management. Elevated blood pressure and presence of anxiety and pain History of Present Illness Reason for Consultation: chest pain, jaw pain, back pain Requesting Physician: [facility] Attending Physician: Delbert Lopez MD History of Present Illness HPI: Patient is 74 year old female with PMHx as outlined below presents to the ER with chest pain radiating to her back and jaw since yesterday. Reports the back pain is different from her chronic pain/spinal stenosis issues. EKG on admission NSR, prior cited inferior infarct. Rate 73bpm Chest CTA: IMPRESSION: Ascending thoracic aorta repair and descending aortic stent, as above. Aneurysmal dilatation of the thoracic aorta beyond the stent. No evidence for acute dissection. CTA abdomen and pelvis: IMPRESSION: No acute aortic pathology. Troponin negative Renal angiomyolipoma: noted in OP imaging, above, at left mid upper pole. IR eval come saturday. Cardiac problem list: 1. Ascending aortic aneurysm, large pseudoaneurysm of distal aortic arch s/p right subclavian side graft and replacement of the ascending aorta and arch with elephant trunk procedure beyond the left subclavian artery 12/2010. Completion of the elephant trunk procedure with a sequential endovascular stent beginning at the isthmus and extending to the distal descending aorta 02/2014. Follows with [facility] 2. Dyslipidemia goal LDL less than 100mg/dL 3. HTN - 4. Paroxysmal atrial fibrillation status post EDIE cardioversion February 07, 2024 5. Mild non-obstructive CAD 6. Prior CVA with MRI/MRA revealing left MCA distribution felt to be cardioembolic secondary to paroxysmal atrial fibrillation. 7. DVT and PE on chronic Coumadin therapy. 8. Recurrent breast cancer s/p partial mastectomy and radiation therapy 9. Sarcoidosis, pulmonary 10. MTHFR mutation, homozygous Upon seeing patient today she is resting in bed with family at bedside. She is endorsing intermittent episodes of left mid back pain (under bra strap area) with radiation into chest and up the left side of her neck. BP well above target. Telemetry shows SR rates 60's. No acute events. Allergies Allergy/AdvReac Type Severity Reaction Status Date / Time nickel Allergy Severe Avoids all Unverified 11/21/24 13:26 metals. Diagnosed w/ MTHFR gene mutation Iodinated Contrast Media Allergy Mild Rash Verified 11/21/24 13:26 hydrocodone Allergy Unknown other Verified 11/21/24 13:26 levofloxacin Allergy Unknown RASH Verified 11/21/24 13:26 propoxyphene Allergy Unknown UNKNOWN. Verified 11/21/24 13:26 azithromycin AdvReac Intermediate Deafness Verified 11/21/24 13:26 for several weeks hydromorphone AdvReac Intermediate Hallucinati Verified 11/21/24 13:26 ons oxycodone AdvReac Mild other Verified 11/21/24 13:26 Home Medications Medication Instructions Recorded Confirmed Type Lactobacillus 1 cap PO DAILY 09/08/19 11/21/24 History acidophilus-Bifidobac.animalis 31 billion cell capsule citalopram 20 mg tablet 20 mg PO QAM 09/08/19 11/21/24 History red yeast rice 600 mg tablet 600 mg PO QAM 09/10/19 11/21/24 History warfarin 5 mg tablet (Jantoven) 5 mg PO 4XWK 04/27/20 11/21/24 History aspirin 81 mg tablet,delayed 81 mg PO DAILY 02/05/24 11/21/24 History release coQ10 (ubiquinol) 200 mg capsule 200 mg PO DAILY 02/05/24 11/21/24 History levothyroxine 100 mcg tablet 100 mcg PO DAILYBB 02/05/24 11/21/24 History melatonin 10 mg tablet 10 mg PO HS 02/05/24 11/21/24 History omega-3 fatty acids 1,250 mg 1,250 mg PO DAILY 02/05/24 11/21/24 History capsule turmeric root extract 500 mg 500 mg PO QAM 02/05/24 11/21/24 History capsule Moringa oleifera 500 mg capsule 500 mg PO QAM 11/21/24 11/21/24 History ascorbic acid (vitamin C) 500 mg 500 mg PO DAILY 11/21/24 11/21/24 History tablet (Vitamin C) diphenhydramine 25 1 tab PO HS PRN Sleep 11/21/24 11/21/24 History mg-acetaminophen 500 mg tablet (Tylenol PM Extra Strength) metoprolol succinate 25 mg 12.5 mg PO BID 11/21/24 11/21/24 History tablet,extended release 24 hr multivitamin with folic acid 400 1 tab PO DAILY 11/21/24 11/21/24 History mcg tablet warfarin 5 mg tablet (Jantoven) 7.5 mg PO 3XWK 11/21/24 11/21/24 History Patient History Medical History Encounter for pre-operative examination Peripheral neuropathy Esophageal reflux Chronic bronchitis Cerebral artery occlusion with cerebral infarction Breast cancer MTHFR mutation Personal history of pulmonary embolism Personal history of DVT (deep vein thrombosis) PAF (paroxysmal atrial fibrillation) Atrial fibrillation with rapid ventricular response Sarcoidosis Cerebral embolism without cerebral infarction (08/06/12) Benign tumor of kidney Aorta aneurysm Surgical History History of heart surgery History of bilateral mastectomy History of bladder surgery 2009 History of heart surgery aorta - 2010 Family History Other Family history non-contributory Social History Smoking Status: Never smoker Second Hand Exposure: No; Do You Dip or Chew Tobacco: No; Hx Alcohol Use: No Hx Substance Use: No Preferred Language: [place] Communication Ability: Effective Sock Mender Required: No Beliefs That Will Affect Care: None marital status: Current Living Situation: Spouse current occupational status: retired How many Children do You have: 5 Other Information That Helps Us Care for You: No Feels Safe at Home: Yes Safety Concerns: Feels Safe At This Time Assistive Devices: Glasses Review of Systems Review of Systems: All systems reviewed & are unremarkable except as noted in HPI & below Physical Exam Constitutional: well developed, well nourished and + ill appearing; no acute distress Neck: normal visual inspection and trachea midline Respiratory: normal respiratory effort, lungs clear to auscultation Cardiovascular: Rate/Rhythm: regular rate and regular rhythm Heart Sounds: normal S1 and normal S2; no murmur Vessels: dorsalis pedis pulses present; no JVD Extremities: no edema Skin: no rashes, warm and dry Psychiatric: A+Ox3, euthymic affect Results & Data Vital Signs (Past 12 Hours) Vital Signs Temp Pulse Pulse Resp BP Pulse Ox O2 Del Method 11/22/24 08:30 36.5 C 65 16 184/72 H 96 Room Air 11/22/24 07:29 55 L 11/22/24 02:41 36.7 C 61 18 136/74 93 Room Air 11/22/24 01:05 67 11/21/24 23:32 61 147/70 H 11/21/24 23:01 36.3 C L 65 18 172/85 H 90 Room Air Laboratory Results Cardiac Enzymes 11/21/24 11/21/24 11/22/24 Range/Units 17:38 23:00 05:21 Troponin I High Sens 7.0 6.1 5.3 (0-14) pg/ml Coagulation 11/22/24 Range/Units 05:21 PT 21.2 H (9.0-12.0) Seconds CBC 11/22/24 Range/Units 05:21 WBC 6.42 (4.8-10.8) K/ul RBC 4.62 (4.20-5.40) M/uL Hgb 13.6 (12.0-16.0) g/dl Hct 40.8 (37.0-47.0) % Plt Count 220 (130-400) K/uL Comprehensive Metabolic Panel 11/22/24 Range/Units 05:21 Sodium 138 (136-145) mmol/L Potassium 4.8 (3.5-5.1) mmol/L Chloride 104 (98-107) mmol/L Carbon Dioxide 29 (21-32) mmol/L BUN 22 (6-23) mg/dl Creatinine 0.98 (0.6-1.2) mg/dl Glucose 123 H (70-99(Fasting)) mg/dl Calcium 9.6 (8.6-10.3) mg/dl Intake and Output 11/21/24 11/22/24 11/22/24 22:59 06:59 14:59 Other: # Unmeasured Voids 1 2 Weight 91.5 kg 91.5 kg Weight Measurement Method Built in Bedscale Built in Bedscale PG Care Time/CCT Total # of Minutes Spent Total Time Spent with Patient: Total time spent is greater than 50% in coordination of care (as documented) at patient's floor/unit and/or counseling patient: [place] [address] IN/OBS CONSULT LVL 5,80M Patient Type New Diagnoses Chest pain R07.9 HTN, goal below 130/80 I10 Time Spent (min) 80
--- NOTE | 2024-11-22 11:23 | Hospitalist Progress Note ---
Date of Service November 22, 2024 Assessment & Plan (1) Chest pain: Plan Per admitting provider w/addendum Chest pain, rule out ACS versus aortic dissection Patient comes in with chest pain radiating to jaw and back, not relieved with ic e and heat which she usually helps her chronic back pain. Admitting troponin WNL, EKG with no acute ST or T changes. Admitting CTA chest negative for aortic dissection. CTA chest - IMPRESSION: Ascending thoracic aorta repair and descending aortic stent, as above. Aneurysmal dilatation of the thoracic aorta beyond the stent. No evidence for acute dissection. Patient states she cannot tolerate nitroglycerin due to headache. Trend troponin, get echo, telemetry monitoring. Cardiology consult.N.p.o. midnight. 11/22 Pt pain free this AM. Says she had CTA done last week as a routine follow up ordered by Dr. Swain ([facility]). She went for teeth cleaning in the morning. Later in a day developed radiating jaw pain and then later left sided chest pain. After I saw the pt , notified that BP elevated - pt to receive her home dose metoprolol this AM. Pt then reported chest pain and ECG being done. Cardiology contacted and pt being evaluated. PAF/hypercoagulable state/history of PE: Continue with home Coumadin. Admitting INR of 2.1. Renal angiomyolipoma: noted in OP imaging, above, at left mid upper pole. Pt aware, recommend follow up / outpt vs. IR eval saturday. Other chronic medical conditions: Hypothyroidism, CAD, CVA, pulmonary sarcoidosis, reactive airway disease, hyperlipidemia, hypertensioncontinue with/resume home meds as and when able. DVT prophylaxis: Patient is on warfarin. Full code Admission and Anticipated Discharge Date Admission Date: November 21, 2024 Subjective Pt seen in follow up chest pain This AM says she has no chest pain and only has chronic back pain Has hx of vascular surgegry at [facility] Says she follows w/ Dr. Swain ([facility]) and had follow up CTA done last week. After that study she developed jaw pain and then chest pain. She also had teeth cleaning done in the morning so at first thought it was related to that however later developed chest pain as well. No fevers, chills, no abd. pain, n/v Cardiology consulted as well Update: After pt seen notified she developed chest pain again, and ECG being done. Cardiology updated. Review of Systems Review of Systems: All systems reviewed & are unremarkable except as noted in Subjective Physical Exam Physical Exam: GENERAL: Alert and oriented x3. NAD, on RA. HEENT: NC/AT. No pallor, no icterus. Pupils equal, round and reactive to light. NECK: No JVD, no neck masses. HEART: S1 and S2 heard. Regular rate and rhythm. Old healed midline sternotomy surgical scar noted. RESPIRATORY: Normal AP diameter. No accessory muscle use. No wheezing ABDOMEN: Soft, bowel sounds present, nontender, no distention. NEURO: Awake, alert, No facial droop. Speech is clear. Moves extremities. EXTREMITIES: No edema, no erythema seen. Moves extremities Results & Data Results & Data Vital Signs (Past 12 Hours) Vital Signs Temp Pulse Pulse Resp BP Pulse Ox O2 Del Method 11/22/24 08:30 36.5 C 65 16 184/72 H 96 Room Air 11/22/24 07:29 55 L 11/22/24 02:41 36.7 C 61 18 136/74 93 Room Air 11/22/24 01:05 67 11/21/24 23:32 61 147/70 H Laboratory Results 11/22/24 11/21/24 11/21/24 Range/Units 05:21 23:00 17:38 WBC 6.42 (4.8-10.8) K/ul RBC 4.62 (4.20-5.40) M/uL Hgb 13.6 (12.0-16.0) g/dl Hct 40.8 (37.0-47.0) % MCV 88.3 (80.0-100.0) fL MCH 29.4 (25.0-34.0) pg MCHC 33.3 (32.0-36.0) g/dL RDW Std Deviation 45.4 (36.4-46.3) fL RDW Coeff of Mita 14.1 (11.5-14.5) % Plt Count 220 (130-400) K/uL MPV 9.8 (9.4-12.4) fL PT 21.2 H (9.0-12.0) Seconds INR 2.1 H (0.9-1.1) APTT (21-31) Seconds PTT Ratio Sodium 138 (136-145) mmol/L Potassium 4.8 (3.5-5.1) mmol/L Chloride 104 (98-107) mmol/L Carbon Dioxide 29 (21-32) mmol/L Anion Gap 5 (3-11) BUN 22 (6-23) mg/dl Creatinine 0.98 (0.6-1.2) mg/dl Est Cr Clr Drug Dosing 57.6 eGFR 60.19 BUN/Creatinine Ratio 22.4 H (10-20) Glucose 123 H (70-99(Fasting)) mg/dl Calcium 9.6 (8.6-10.3) mg/dl Phosphorus 3.9 (2.5-4.9) mg/dl Magnesium 2.4 (1.7-2.4) mg/dl Total Bilirubin (0.2-1.0) mg/dl AST (13-39) U/L ALT (7-52) U/L Alkaline Phosphatase (34-104) U/L Troponin I High Sens 5.3 6.1 7.0 (0-14) pg/ml Total Protein (6.0-8.3) gm/dl Albumin (3.4-5.0) gm/dl Globulin (2.5-4.0) gm/dl Albumin/Globulin Ratio (0.9-2) Lipase (11-82) U/L 11/21/24 Range/Units 11:00 WBC (4.8-10.8) K/ul RBC (4.20-5.40) M/uL Hgb (12.0-16.0) g/dl Hct (37.0-47.0) % MCV (80.0-100.0) fL MCH (25.0-34.0) pg MCHC (32.0-36.0) g/dL RDW Std Deviation (36.4-46.3) fL RDW Coeff of Mita (11.5-14.5) % Plt Count (130-400) K/uL MPV (9.4-12.4) fL PT 21.4 H (9.0-12.0) Seconds INR 2.1 H (0.9-1.1) APTT 36 H (21-31) Seconds PTT Ratio 1.3 Sodium 138 (136-145) mmol/L Potassium 4.2 (3.5-5.1) mmol/L Chloride 101 (98-107) mmol/L Carbon Dioxide 30 (21-32) mmol/L Anion Gap 7 (3-11) BUN 25 H (6-23) mg/dl Creatinine 1.19 (0.6-1.2) mg/dl Est Cr Clr Drug Dosing Not Reportable eGFR 47.68 BUN/Creatinine Ratio 21.0 H (10-20) Glucose 99 (70-99(Fasting)) mg/dl Calcium 9.7 (8.6-10.3) mg/dl Phosphorus (2.5-4.9) mg/dl Magnesium (1.7-2.4) mg/dl Total Bilirubin 0.6 (0.2-1.0) mg/dl AST 18 (13-39) U/L ALT 13 (7-52) U/L Alkaline Phosphatase 58 (34-104) U/L Troponin I High Sens 6.2 (0-14) pg/ml Total Protein 7.1 (6.0-8.3) gm/dl Albumin 3.9 (3.4-5.0) gm/dl Globulin 3.2 (2.5-4.0) gm/dl Albumin/Globulin Ratio 1.2 (0.9-2) Lipase 25 (11-82) U/L Medications Administered Current Inpatient Medications Acetaminophen (Acetaminophen 325 Mg Tab) 650 mg PO Q4H PRN PRN Reason: Pain or Fever Stop: 12/21/24 17:19 Acetaminophen (Acetaminophen 500 Mg Tab) 500 mg PO HS PRN PRN Reason: Sleep Stop: 12/21/24 21:18 Al Hydrox/Mg Hydrox/Simethicone (Aluminum/Magnesium Susp 30 Ml Udc) 15 ml PO Q4H PRN PRN Reason: Dyspepsia Stop: 12/21/24 17:19 Aspirin (Aspirin 81 Mg Ectab) 81 mg PO DAILY GIOVANNA Stop: 12/22/24 08:59 Last Admin: 11/22/24 08:34 Dose: 81 mg Citalopram Hydrobromide (Citalopram 20 Mg Tab) 20 mg PO QAM GIOVANNA Stop: 12/22/24 08:59 Last Admin: 11/22/24 08:34 Dose: 20 mg Diphenhydramine HCl (Diphenhydramine Capsule 25 Mg Cap) 1 mg PO HS PRN PRN Reason: Sleep Stop: 12/21/24 21:15 Lactobacillus Acidophilus (Advanced Probiotic 625 Mg Capsule) 1,250 mg PO DAILY [facility] Stop: 12/22/24 08:59 Last Admin: 11/22/24 08:34 Dose: 1,250 mg Levothyroxine Sodium (Levothyroxine Sodium 100 Mcg Tablet) 100 mcg PO DAILYBB [facility] Stop: 12/22/24 06:29 Last Admin: 11/22/24 05:24 Dose: Not Given Magnesium Hydroxide (Magnesium Hydroxide Susp 30 Ml Udc) 30 ml PO Q12H PRN PRN Reason: Constipation Stop: 12/21/24 17:19 Melatonin (Melatonin 3 Mg Tab) 9 mg PO HS [facility] Stop: 12/21/24 20:59 Last Admin: 11/21/24 21:38 Dose: 9 mg Metoprolol Succinate (Metoprolol Succ 25mg Ext Rel Tab) 12.5 mg PO BID [facility] Stop: 12/21/24 20:59 Last Admin: 11/22/24 08:34 Dose: 12.5 mg Polyethylene Glycol (Polyethylene (Miralax) 17 Gm Pack) 17 gm PO DAILY PRN PRN Reason: Constipation Stop: 12/21/24 17:19 Warfarin Sodium (Warfarin Sod 7.5 Mg Tab) 7.5 mg PO [id number]@1600 [facility] Stop: 12/21/24 17:44 Last Admin: 11/21/24 21:52 Dose: 7.5 mg Warfarin Sodium (Warfarin Sod 5 Mg Tab) 5 mg PO [id number]@1600 [facility] Stop: 12/22/24 15:59
[2024-11-22] MEDS: ACETAMINOPHEN 1,000 MG/100 ML VIAL IV STA ×2 (12:38→19:41)
[2024-11-22] MEDS: LOSARTAN POTASSIUM 25 MG TAB PO SCH (13:28)
[2024-11-22] MEDS: WARFARIN SOD 5 MG TAB PO SCH (15:52)
[2024-11-22 19:24] VITALS: RESP 18
--- NOTE | 2024-11-22 19:40 | Communication Note ---
Date of Service: November 22, 2024 Patient complaining of new back pain going to the lower abdomen as per RN. No overt bleed. CT abdomen pelvis no acute findings UA WBC est, nitrate positive AP Complicated UTI, no sepsis for now Follow urine CS, Ceftriaxone
[2024-11-22] MEDS: ACETAMINOPHEN 500 MG TAB PO PRN (20:37)
[2024-11-22] MEDS: diphenhydrAMINE Capsule 25 MG CAP PO PRN (20:45)
--- NOTE | 2024-11-22 22:21 | CT Scan Report ---
Exam(s): CT ABDOMEN + PELVIS Without Contrast EXAM: CT Abdomen and Pelvis Without Intravenous Contrast CLINICAL HISTORY: Reason for exam: worsening abd/back pain, coumadin. TECHNIQUE: Axial computed tomography images of the abdomen and pelvis without intravenous contrast. CTDI is 27 mGy and DLP is 1283 mGy-cm. Automated exposure control was utilized for the study. A dose lowering technique was utilized adhering to the principles of ALARA. COMPARISON: CTA 11/21/2024 FINDINGS: Lung bases: Unremarkable. ABDOMEN: Liver: Unremarkable. Gallbladder and bile ducts: Unremarkable. No calcified stones. No ductal dilation. Pancreas: Unremarkable. No ductal dilation. Spleen: Unremarkable. No splenomegaly. Adrenals: Unremarkable. No mass. Kidneys and ureters: No hydronephrosis. Small left kidney cysts; no follow-up indicated. Nonobstructing punctate left kidney stone. Stomach and bowel: No bowel obstruction. Diverticulosis. No mucosal thickening. PELVIS: Appendix: Appendix not visualized. Bladder: Decompressed urinary bladder. No stones. Reproductive: Unremarkable as visualized. ABDOMEN and PELVIS: Intraperitoneal space: Unremarkable. No free air, significant free fluid, or fluid collection. Bones/joints: Sternotomy. Lumbar facet degeneration. No acute fracture. No dislocation. Soft tissues: Fat containing right-sided spigelian hernia. Vasculature: Atherosclerosis. No aortic aneurysm. Partially imaged stent graft distal descending thoracic aorta. Lymph nodes: Unremarkable. No enlarged lymph nodes. IMPRESSION: No acute findings in the abdomen or pelvis. Electronically signed by: Lauren Diana M.D. 11/22/24 22:20 PM
[2024-11-23 00:16] LABS: Appearance Urine Clear (Clear); Bacteria Urine Automated 4+ (None Seen); Epithelial Cell Urine Auto 0-2 /hpf (0-2); Glucose Urine UA Negative (Negative); RBC Urine Automated 0-2 /hpf (0-2); WBC Urine Automated >50 /hpf (0-5)
[2024-11-23] MEDS: cefTRIAXone SODIUM 2,000 MG/50 ML BAG IV SCH (05:16)
[2024-11-23 06:28] LABS: Hematocrit (blood only) 40.4 % (37.0-47.0); Hemoglobin 12.8 g/dl (12.0-16.0); Mean Corpuscular Hemoglobin 28.4 pg (25.0-34.0); Mean Corpuscular Volume 89.6 fL (80.0-100.0); Platelet Count 197 K/uL (130-400); RDW Standard Deviation 46.5 fL (36.4-46.3); Red Blood Count 4.51 M/uL (4.20-5.40); White Blood Count 5.52 K/ul (4.8-10.8)
[2024-11-23 06:55] LABS: INR 2.5 (0.9-1.1); Prothrombin Time 25.4 Seconds (9.0-12.0)
[2024-11-23 06:56] LABS: Anion Gap 6.0 (3-11); Blood Urea Nitrogen 21.0 mg/dl (6-23); Calcium 9.3 mg/dl (8.6-10.3); Carbon Dioxide 31.0 mmol/L (21-32); Chloride 102.0 mmol/L (98-107); Creatinine Clr Calc Pharmacy 49.7 ml/min; Glucose 104.0 mg/dl (70-99(Fasting)); Magnesium 2.2 mg/dl (1.7-2.4); Potassium 4.0 mmol/L (3.5-5.1); Sodium 139.0 mmol/L (136-145)
[2024-11-23 07:28] VITALS: TEMP 98.2; O2SAT 92
[2024-11-23 07:29] VITALS: BP 157/76
--- NOTE | 2024-11-23 10:33 | Discharge Summary ---
Discharge Summary Date of Service November 23, 2024 Principal Dx & Hospital Course #1 = Principal Diagnosis (1) Musculoskeletal chest pain: (2) Suspected urinary tract infection: (3) Paroxysmal supraventricular tachycardia: (4) Hypertension, uncontrolled: (5) Nonobstructive atherosclerosis of coronary artery: (6) Thoracic aortic aneurysm: (7) Hypothyroidism: Plan Patient 74-year-old female presented to the emergency room with complaints of back pain radiating around to her left chest and up into her neck. In the emergency room workup was negative for acute coronary syndrome but was referred for further evaluation. Patient was admitted to monitored setting. She did have a brief run of SVT, this was asymptomatic. She is maintained on a beta- chu. Cardiology consultation was obtained. They did not feel as though this was an acute coronary event. Echocardiogram was performed and showed no acute abnormalities and normal ejection fraction. Further evaluation is seem to really most of her pain was radiating from her back. Patient has known spinal stenosis and arthritis of the back. She uses cold and heat therapies at home. Uses low-dose Tylenol. Also was noted to have abnormal urinalysis consistent with UTI and was started on some Rocephin. On the day of discharge patient's vital signs are stable. Back pain is improved. We discussed with her about managing her back pain and her neuropathy. She is very hesitant to take any type of significant medications. Discussed with her how scheduled Tylenol at her appropriate dose can be very beneficial for a lot of people. Discussed the safety of Tylenol less than 4 g/day. Encouraged her to trial Tylenol 1000 mg 3 times daily scheduled and see if that helps her with her pain throughout the day as well as helping her sleep at night. I discouraged her from taking the Tylenol PM. Explained to her that the diphenhydramine can have significant adverse effects. Treat her with some oral antibiotics for her UTI. Was seen by cardiology on the day of discharge and agreed with the plan of care. She was started on low-dose losartan for better blood pressure control while here in the hospital. That will be continued time discharge as well. She will follow-up with her outpatient providers. Notes For Next Care Provider Continue to monitor INR for goal of 2-3 May need additional therapeutics for management of her chronic back pain Medication Changes From Visit Losartan for blood pressure control Keflex for treatment of UTI Tylenol scheduled for her chronic back pains Admission HPI Per Admitting Provider 74-year-old lady with PMH of thoracic aortic aneurysm s/p repair, allergy to IV contrast, abdominal aortic aneurysm, reactive airway disease, pulmonary embolism/PAF [s/p EDIE cardioversion Jan, 2024]/primary hypercoagulable state [MTHFR mutation, homozygous] on Coumadin, CAD, breast cancer, female stress incontinence, cervical and lumbar spinal stenosis, patent foramen ovale, CVA, pulmonary sarcoidosis, HLD, migraine, vocal cord paralysis [unilateral complete], basal cell carcinoma, melanoma of skin, insomnia, hypothyroidism due to acquired atrophy of thyroid, major depressive disorder, stage IIIa CKD presents to the ED with complaint of chest pain radiating to jaw and back since yesterday. initially she thought it was her usual back pain and tried ice and heat multiple times with no relief and hence she presented to the ED. Patient reports pain started while at rest, has been mostly constant, was initially associated with nausea. Pt reports improvement in chest pain after aspirin loading dose and fentanyl in the ED. Patient denies fever/sore throat/cough/belly pain/nausea/vomiting/diarrhea/pain or burning while passing urine. Patient denies smoking/alcohol/recreational drug use. Medications reviewed with patient and her at bedside. Plan of care discussed with the patient and her at bedside in detail, they voiced understanding. 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 Completion of the elephant trunk procedure with a sequentialendovascularstent beginning at the isthmusandextending to the distal descending aorta 02/2014. These procedures were performed at [facility]. Outpatient CTA chest/abdomen/pelvis from 11/18/2024: 1. Similar appearance of the descending thoracic aortic stent graft with contrast external to the distal end of the stent graft, extending superiorly alongside the stent graft. The descending aorta at this level previously measured 4.1 x 4.6 cm, now 4.6 x 5.2 cm. 2. Similar appearance of the excluded, thrombosed aneurysm measuring up to approximately 4.4 cm. 3. Similar postsurgical change about the ascending aortic and aortic arch. 4. Nearly 4 cm left mid upper pole renal angiomyolipoma. Recommend IR consultation for evaluation and potential treatment. Admission Exam Per Admitting Provider See H&P Discharge Exam Constitutional: Alert, nontoxic HEENT: Mucous membranes moist. Lungs: Clear to auscultation, decreased, no wheezes rales or rhonchi CV: S1-S2, regular Abdomen: Soft, nontender, nondistended Extremities: No significant edema Musculoskeletal: Significant somatic dysfunction, ropiness and bogginess and tenderness of the paravertebral musculature along the upper Thoracics and thoracolumbar region. This reproduced a lot of the back pain which she presented to the hospital with. Neuro: Chronic lower extremity neuropathy Psych: Cooperative, normal mood Updated Medication List Medication Instructions Recorded Confirmed Type Lactobacillus 1 cap PO DAILY 09/08/19 11/21/24 History acidophilus-Bifidobac.animalis 31 billion cell capsule citalopram 20 mg tablet 20 mg PO QAM 09/08/19 11/21/24 History red yeast rice 600 mg tablet 600 mg PO QAM 09/10/19 11/21/24 History warfarin 5 mg tablet (Jantoven) 5 mg PO 4XWK 04/27/20 11/21/24 History aspirin 81 mg tablet,delayed 81 mg PO DAILY 02/05/24 11/21/24 History release coQ10 (ubiquinol) 200 mg capsule 200 mg PO DAILY 02/05/24 11/21/24 History levothyroxine 100 mcg tablet 100 mcg PO DAILYBB 02/05/24 11/21/24 History melatonin 10 mg tablet 10 mg PO HS 02/05/24 11/21/24 History omega-3 fatty acids 1,250 mg 1,250 mg PO DAILY 02/05/24 11/21/24 History capsule turmeric root extract 500 mg 500 mg PO QAM 02/05/24 11/21/24 History capsule Moringa oleifera 500 mg capsule 500 mg PO QAM 11/21/24 11/21/24 History ascorbic acid (vitamin C) 500 mg 500 mg PO DAILY 11/21/24 11/21/24 History tablet (Vitamin C) diphenhydramine 25 1 tab PO HS PRN Sleep 11/21/24 11/21/24 History mg-acetaminophen 500 mg tablet (Tylenol PM Extra Strength) metoprolol succinate 25 mg 12.5 mg PO BID 11/21/24 11/21/24 History tablet,extended release 24 hr multivitamin with folic acid 400 1 tab PO DAILY 11/21/24 11/21/24 History mcg tablet warfarin 5 mg tablet (Jantoven) 7.5 mg PO 3XWK 11/21/24 11/21/24 History acetaminophen 500 mg tablet 1,000 mg (2 x 500 mg) PO TID #360 11/23/24 Rx (Acetaminophen Pain Relief) tabs cephalexin 250 mg capsule 250 mg PO Q8H #15 caps 11/23/24 Rx losartan 25 mg tablet 25 mg PO QAM #30 tabs 11/23/24 Rx Hospital Stay Data Consultations 11/21/24 13:31 ED Decision to Admit Stat 11/21/24 13:55 ED Decision to Admit Stat 11/21/24 17:19 Consult Cardiology Routine Diagnostic Imagining Performed 11/21/24 13:56 CT angio abdomen pelvis w con Stat CT angio chest dissec wo/w con Stat 11/22/24 19:33 CT Abd and Pelvis [CT abd pelvis wo con] Stat Reviewed imaging, laboratory and diagnostic studies. Pertinent findings as below. Urine culture pending CBC within normal ranges INR 2.5 Electrolytes all within normal range Creatinine 1.1 Glucose 104 Troponins negative x 2 sets Urinalysis positive for nitrites leukocyte esterase 4+ bacteria Echocardiogram showed ejection fraction of 55 to 60% with normal LV function, right ventricular function was normal. CT of the abdomen pelvis showed no acute findings CTA of the chest was negative for pulmonary embolism, stable thoracic aorta repair and descending aortic stent. No evidence of dissection. Pending Results Patient Have Any Pending Studies at Discharge: No Discharge Instructions Given to Patient (Per Discharging Provider) Continue to use heat/cold therapies for your chronic back pain. Encourage you to take Tylenol scheduled to manage your chronic pain issues associated with your back and your neuropathy. Complete course of antibiotics for UTI Avoid Tylenol PM or any other medications that have Benadryl/diphenhydramine in them at bedtime. Please get PT/INR checked per usual process on Saturday Total Time Total Time Spent Total Time Spent (In Minutes): 36
[2024-11-23 11:04] VITALS: PULSE 96
--- NOTE | 2024-11-23 12:25 | Electrocardiogram Report ---
Test Reason : Blood Pressure : */* mmHG Vent. Rate : 57 BPM Atrial Rate : 57 BPM P-R Int : 154 ms QRS Dur : 82 ms QT Int : 434 ms P-R-T Axes : 25 -8 70 degrees QTcB Int : 422 ms Sinus bradycardia with Premature atrial complexes and Premature ventricular complexes or Fusion compl exes Inferior infarct (cited on or before 30-Jan-2011) Abnormal ECG When compared with ECG of 21-Nov-2024 10:56, Fusion complexes are now Present Premature ventricular complexes are now Present Premature atrial complexes are now Present Confirmed by Hayden Armstrong ([id number]) on 11/23/2024 12:25:15 PM Referred By: REFERRED SELF Confirmed By: Hayden Armstrong
--- NOTE | 2024-11-23 16:47 | Cardiology Progress Note ---
Date of Service November 23, 2024 Assessment & Plan (1) Musculoskeletal chest pain: (2) Paroxysmal supraventricular tachycardia: (3) Suspected urinary tract infection: Plan: CT scan reassuring with findings of chronic ascending aorta, aortic arch, descending thoracic aorta pathology unchanged with stable postoperative findings. Recommend continuation of prior dose of metoprolol for atrial fibrillation and SVT. Recommend ongoing anticoagulation with Coumadin. Agree with empiric antibiotic therapy for suspected UTI. No further cardiac workup felt to be indicated. Patient stable for discharge from a cardiac perspective. Case has been reviewed with Dr. Bae this morning for the purpose of coordination of care. I spent a total of 35 minutes on the date of service in preparation, delivery, and documentation of the care provided to this patient, excluding any time spent in the performance of separately billed services. Yola Macedo DO Admission and Anticipated Discharge Date Admission Date: November 21, 2024 Subjective Patient seen in follow-up at approximately 1015 this morning. A 20 beat run of supraventricular tachycardia had been observed on telemetry prior to my assessment with spontaneous conversion to sinus rhythm and no subjective symptoms. Patient noted episodes of atrial fibrillation detected on her smart watch on 11/20/2024 and again on 11/21/2024. Physical Exam Physical Exam: General: no acute distress and stated age Eyes: conjunctiva are pink and non-injected, sclera clear Neck: normal jugular venous pulse, no hepatojugular reflux Chest: normal shape and normal respiratory effort Lungs: clear to auscultation and percussion Cardiac Exam: - regular heart sounds, no murmurs, rubs, or gallops, no jugular venous distention Abdomen: abdomen soft, non-tender, no abnormal masses and no hepatosplenomegaly Extremities: no edema and no cyanosis Neuro:awake, conversant, follows commands, no focal motor deficits Results & Data Vital Signs (Past 12 Hours) Vital Signs Temp Pulse Pulse Resp BP BP Pulse Ox 11/23/24 11:38 36.8 C 96 H 18 157/76 H 138/86 92 11/23/24 11:02 36.8 C 96 H 18 157/76 H 138/86 92 11/23/24 08:30 58 L 11/23/24 07:29 157/76 H 11/23/24 07:27 36.8 C 96 H 18 138/86 92 O2 Del Method 11/23/24 11:38 11/23/24 11:02 11/23/24 08:30 11/23/24 07:29 11/23/24 07:27 Room Air PG Care Time/CCT Total # of Minutes Spent Total Time Spent with Patient: Total time spent is greater than 50% in coordination of care (as documented) at patient's floor/unit and/or counseling patient: Coding Level of Care Code 34369 SUB INP/OBS CARE 2/35MIN Diagnoses Musculoskeletal chest pain R07.89 Paroxysmal supraventricular tachycardia I47.10 Suspected urinary tract infection R39.89
== END 2024-11-23 11:40 | disposition home or self-care (01) | DRG 313 ==
LOC: ED 10:43 → 4W 17:21 → SUATTDRO 17:21 → 4W 20:37